=== PATIENT | female | born 1965 | race Caucasian/White ===

== ENCOUNTER 2020-06-14 13:33 | Inpatient (IN) | payer OTHER ==
--- NOTE | 2020-06-14 14:14 | RAD REPORT ---
EXAM DESCRIPTION: CT - Ct Stroke Brain Wo Cont - 06/14/2020 2:02 pm CLINICAL HISTORY: Confusion/alteration of awareness COMPARISON: 2017 TECHNIQUE: Computed axial tomography of the head was obtained. All CT scans are performed using dose optimization technique as appropriate and may include automated exposure control or mA/KV adjustment according to patient size. FINDINGS: An intracranial bleed is not seen . The ventricles are normal in caliber. No extra-axial fluid collection is noted. Low-density areas within the frontal lobes having the appearance of old infarctions. Mild to moderate low-density within periventricular, deep and subcortical white matter likely ischemic changes second shruthi to small vessel disease Fluid within the sinuses/ mastoids is not seen. IMPRESSION: No acute intracranial abnormality is seen. If patient's symptoms persist MRI of the bra in would be recommended. Radha of the emergency room was notified at 2:09 p.m. June 14, 2020
[2020-06-14 14:35] LABS: ALT/SGPT 17 U/L (12-78); Albumin 2.9 g/dL (3.4-5.0); Alkaline Phosphatase 70 U/L (45-117); Bilirubin Direct < 0.1 mg/dL (0-0.2); Bilirubin Total 0.3 mg/dL (0.2-1.0); NT PRO-BNP 102 pg/mL (<125); Protein, Total 7.2 g/dL (6.4-8.2); Troponin (Emerg Dept Use Only) < 0.02 ng/mL (0.0-0.045)
[2020-06-14 14:36] LABS: AST/SGOT 21 U/L (15-37); Magnesium 1.9 mg/dL (1.8-2.4)
[2020-06-14] MEDS ORDERED: NA CHLORIDE 0.9% 1,000 ML ONE ×2 (15:11→15:17)
--- NOTE | 2020-06-14 15:14 | EDPHYS ---
Physician Documentation [facility] Name: Grace Guzman Age: 55 yrs Sex: Female : 1965 Arrival Date: 06/14/2020 Time: 13:41 Bed 28 Private MD: ED Physician Micheal Ward HPI: 06/14 15:00 This 55 yrs old Female presents to ER via Ambulatory with complaints of S/S gabriella of Possible Stroke. 15:00 The patient's problem is reported as weakness, that is generalized. Onset: The gabriella symptoms/episode began/occurred this morning, 1 day(s) ago. Duration: The episode is continuous. Context: pt dry mm, weakness, non focal, no evidence , diagnosis most consistent with dehydration. The symptoms are alleviated by nothing. The symptoms are aggravated by nothing. Associated signs and symptoms: The patient has no apparent associated signs or symptoms. Severity of symptoms: At their worst the symptoms were moderate in the emergency department the symptoms are unchanged. Patient's baseline: Neuro:. The patient has experienced similar episodes in the past, several times. Historical: - Allergies: 14:00 Aspirin; vc 14:00 PENICILLINS; vc - PMHx: 14:00 Anemia; Anxiety; Aphasia; CAD; Contracture; CVA; epilepsy; Hypertension; ibs; MR; vc Schizophrenia; vitamin d deficiency; - Immunization history:: Adult Immunizations up to date. - Family history:: not pertinent. - Social history:: Smoking status: Patient denies any tobacco usage or history of. ROS: 15:00 Constitutional: Negative for fever, chills, and weight loss, Eyes: Negative for injury, gabriella pain, redness, and discharge, Neck: Negative for injury, pain, and swelling, Cardiovascular: Negative for chest pain, palpitations, and edema, Respiratory: Negative for shortness of breath, cough, wheezing, and pleuritic chest pain, Back: Negative for injury and pain, : Negative for injury, bleeding, discharge, and swelling, MS/Extremity: Negative for injury and deformity, Neuro: Negative for headache, weakness, numbness, tingling, and seizure, Psych: Negative for depression, anxiety, suicide ideation, homicidal ideation, and hallucinations, Allergy/Immunology: Negative for hives, rash, and allergies, Endocrine: Negative for neck swelling, polydipsia, polyuria, polyphagia, and marked weight changes, Hematologic/Lymphatic: Negative for swollen nodes, abnormal bleeding, and unusual bruising. 15:00 ENT: Positive for dry mm, tongue dry. Exam: 15:00 Neuro: Awake and alert, GCS 15, oriented to person, place, time, and situation. [facility] Cranial nerves II-XII grossly intact. Motor strength 5/5 in all extremities. Sensory grossly intact. Cerebellar exam normal. Normal gait. 15:00 Eyes: Pupils equal round and reactive to light, extra-ocular motions intact. Lids and lashes normal. Conjunctiva and sclera are non-icteric and not injected. Cornea within normal limits. Periorbital areas with no swelling, redness, or edema. 15:00 Eyes: Periorbital structures: appear normal, Pupils: no acute changes, Extraocular movements: no acute changes, Conjunctiva: normal. 15:00 ENT: Mouth: Oral mucosa: dry, Gums: reddened, Tongue: is elevated, displays fissures, Posterior pharynx: no acute changes, Airway: normal, no evidence of obstruction, Dental exam: dental caries, missing teeth. 15:00 Cardiovascular: Rate: normal, Rhythm: regular, Pulses: no pulse deficits are appreciated, Heart sounds: normal, Edema: is not appreciated, JVD: is not appreciated. 15:09 Radiologist reports: [facility] Vital Signs: 13:35 BP 114 / 65; Pulse 74; Resp 11; Temp 97.8; Pulse Ox 94% on R/A; Height 5 ft. 7 in. (170.18 cm); 16:00 BP 110 / 64; Pulse 72; Resp 11; Pulse Ox 97% on R/A; vc 17:00 BP 105 / 61; Pulse 67; Resp 10; Pulse Ox 97% on R/A; vc 18:00 BP 116 / 69; Pulse 66; Resp 14; Pulse Ox 96% on R/A; vc 19:00 BP 124 / 71; Pulse 74; Resp 14; Pulse Ox 97% on R/A; vc 21:00 BP 125 / 67; Pulse 86; Resp 17; Temp 97.9(O); Pulse Ox 99% on R/A; vc NIH Stroke Scale Scores: 14:00 NIHSS Score: 14 vc Procedures: 15:10 Peripheral line: by aseptic technique a peripheral line was placed in the right [facility] external jugular vein. MDM: 13:42 Patient medically screened. [facility] 15:06 Data reviewed: vital signs, nurses notes, lab test result(s), EKG, radiologic studies, gabriella CT scan, plain films. Data interpreted: hall monitor: rate is 74 beats/min, rhythm is regular, Pulse oximetry: on room air is 94 %. Test interpretation: by ED physician or midlevel provider: ECG, plain radiologic studies. Counseling: I had a detailed discussion with the patient and/or guardian regarding: the historical points, exam findings, and any diagnostic results supporting the discharge/admit diagnosis, the presence of at least one elevated blood pressure reading (>120/80) during this emergency department visit, lab results, radiology results, the need for further work-up and treatment in the hospital. 15:10 Differential diagnosis: CVA, TIA, Dementia, paralysis, Alzheimer disease, metabolic gabriella disorder. 06/14 13:54 Order name: Basic Metabolic Panel; Complete Time: 16:55 [facility] 06/14 13:54 Order name: CBC with Diff; Complete Time: 16:55 [facility] 06/14 13:54 Order name: Protime (+inr); Complete Time: 16:55 [facility] 06/14 13:54 Order name: Ptt, Activated; Complete Time: 16:55 [facility] 06/14 13:56 Order name: LFT's; Complete Time: 15:08 [facility] 06/14 13:56 Order name: Magnesium; Complete Time: 15:08 [facility] 06/14 13:56 Order name: NT PRO-BNP; Complete Time: 15:08 [facility] 06/14 13:56 Order name: Troponin (emerg Dept Use Only); Complete Time: 15:08 [facility] 06/14 13:56 Order name: Blood Culture Adult (2) [facility] 06/14 13:56 Order name: Urine Culture [facility] 06/14 15:08 Order name: Depakote [facility] 06/14 15:53 Order name: Urine Dipstick--Ancillary (enter results) em1 06/14 17:41 Order name: Basic Metabolic Panel [facility] 06/14 17:41 Order name: Basic Metabolic Panel [facility] 06/14 13:54 Order name: CT Stroke Brain w/o Contrast; Complete Time: 15:08 [facility] 06/14 13:54 Order name: Stroke CXR 1 View; Complete Time: 16:55 aa06/14 13:54 Order name: EKG; Complete Time: 13:55 06/14 13:54 Order name: Accucheck; Complete Time: 15:54 06/14 13:54 Order name: Cardiac monitoring; Complete Time: 15:54 06/14 13:54 Order name: EKG - Nurse/Tech; Complete Time: 15:54 06/14 13:54 Order name: IV Saline Lock; Complete Time: 15:54 06/14 13:54 Order name: Labs collected and sent; Complete Time: 15:54 06/14 13:54 Order name: NPO; Complete Time: 15:54 06/14 13:54 Order name: O2 Per Protocol; Complete Time: 15:54 06/14 13:54 Order name: O2 Sat Monitoring; Complete Time: 15:55 06/14 17:41 Order name: CBC with Automated Diff EDMS 06/14 17:41 Order name: CBC with Automated Diff EDMS 06/14 13:54 Order name: Stroke Swallow Screen; Complete Time: 20:15 06/14 13:56 Order name: Urine Dipstick-Ancillary (obtain specimen); Complete Time: 15:52 gabriella 06/14 15:00 Order name: Mosquera; Complete Time: 15:53 [facility] Administered Medications: 15:04 Drug: NS 0.9% 1000 ml Route: IV; Rate: 1 bolus; Site: left jugular; ss 16:05 Follow up: IV Status: Completed infusion; IV Intake: 1000ml vc 15:25 Drug: Rocephin 1 grams Route: IV; Rate: per protocol; Site: Other; vc 16:00 Follow up: IV Intake: 10ml vc 15:50 Drug: foLIC Acid 1 mg Route: IVPB; Site: right jugular; vc 16:15 Follow up: IV Status: Completed infusion; IV Intake: 50ml vc Disposition: 06/14/20 15:13 Hospitalization ordered by Derian Yan for Inpatient Admission. Preliminary diagnosis are Weakness, Dehydration, Schizophrenia, Urinary tract infection, site not specified. - Bed requested for Telemetry/MedSurg (Inpatient). - Status is Inpatient Admission. ll1 - Condition is Fair. - Problem is new. - Symptoms have improved. NIH Stroke Scale - NIH Stroke Score Date: 06/14/2020 Time: 14:00 Total Score = 14 1a. Level of Consciousness (LOC) - 1(Not Alert) 1b. Level of Consciousness (LOC) (Year \T\ Age) - 2(Neither) 1c. LOC Commands (Open \T\ Closes Eyes/Talent Coordinator) - 0(Both) 2. Best Gaze (Lateral Gaze Paresis) - 0(Normal) 3. Visual Field Loss - 0(No visual loss) 4. Facial Palsy - 0(Normal) 5a. Left Arm: Motor (10-second hold) - 1(Drift) 5b. Right Arm: Motor (10-second hold) - 1(Drift) 6a. Left Leg: Motor (5-second hold - always test supine) - 4(No movement) 6b. Right Leg: Motor (5-second hold - always test supine) - 4(No movement) 7. Limb Ataxia (finger/nose \T\ heel/solorzano - test with eyes open) - 0(Absent) 8. Sensory Loss (pinprick arms/legs/face) - 0(Normal) 9. Best Language: Aphasia (description/naming/reading) - 0(No aphasia) 10. Dysarthria (speech clarity - read or repeat words) - 0(Normal) 11. Extinction and Inattention (visual/tactile/auditory/spatial/personal) - 1(Present) Initials: vc Signatures: Dispatcher [employer] EDMS Micheal Ward MD MD cha Calderon, Audri, RN RN aa5 Kamla Liao RN RN ss Gely Joseph RN RN Ariella Caro RN RN vc Lewis, Lynsay, RN RN ll1 Corrections: (The following items were deleted from the chart) 17:21 15:13 Hospitalization Ordered by Derian Yan DO for Inpatient Admission. [facility] Preliminary diagnosis is Weakness; Dehydration; Schizophrenia. Bed requested for Telemetry/MedSurg (Inpatient). Status is Inpatient Admission. Condition is Fair. Problem is new. Symptoms have improved. [facility] 20:47 17:21 06/14/2020 15:13 Hospitalization Ordered by Derian Yan DO for Inpatient Admission. Preliminary diagnosis is Weakness; Dehydration; Schizophrenia; Urinary tract infection, site not specified. Bed requested for Telemetry/MedSurg (Inpatient). Status is Inpatient Admission. Condition is Fair. Problem is new. Symptoms have improved. [facility] 22:30 20:47 06/14/2020 15:13 Hospitalization Ordered by Derian Yan DO for ll1 Inpatient Admission. Preliminary diagnosis is Weakness; Dehydration; Schizophrenia; Urinary tract infection, site not specified. Bed requested for Telemetry/MedSurg (Inpatient). Status is Inpatient Admission. Condition is Fair. Problem is new. Symptoms have improved.
--- NOTE | 2020-06-14 15:14 | ER ---
Nurse's Notes [facility] Name: Grace Guzman Age: 55 yrs Sex: Female : 1965 Arrival Date: 06/14/2020 Time: 13:41 Bed 28 Private MD: Diagnosis: Weakness;Dehydration;Schizophrenia;Urinary tract infection, site not specified Presentation: 06/14 13:35 Chief complaint: EMS states: right pupil sluggish, pt c/o headache behind right eye for ah 20 mins. BS 90. last known well time was 10am today. A/O to self only but usually A/O x3. Coronavirus screen: Proceed with normal triage. Ebola Screen: No symptoms or risks identified at this time. The patients blood glucose was checked before arriving to the hospital and was found to be normal. Initial Sepsis Screen: Does the patient meet any 2 criteria? No. Patient's initial sepsis screen is negative. Does the patient have a suspected source of infection? No. Patient's initial sepsis screen is negative. Risk Assessment: Do you want to hurt yourself or someone else? Patient reports no desire to harm self or others. Onset of symptoms is unknown. 13:35 Method Of Arrival: Ambulatory ah 13:35 Acuity: RODDY 3 ah 14:00 No acute neurological deficit is noted. vc Triage Assessment: 14:00 The onset of the patients symptoms was at an unknown time. General: Appears vc uncomfortable, ill, slender, unkempt, emaciated, malnourished. Historical: - Allergies: 14:00 Aspirin; vc 14:00 PENICILLINS; vc - PMHx: 14:00 Anemia; Anxiety; Aphasia; CAD; Contracture; CVA; epilepsy; Hypertension; ibs; MR; vc Schizophrenia; vitamin d deficiency; - Immunization history:: Adult Immunizations up to date. - Family history:: not pertinent. - Social history:: Smoking status: Patient denies any tobacco usage or history of. Screenin:00 Abuse screen: Denies threats or abuse. Nutritional screening: Intervention for positive vc screen:. Tuberculosis screening: No symptoms or risk factors identified. Fall Risk No fall in past 12 months (0 pts). Secondary diagnosis (15 points) impaired mobility, IV access (20 points). Ambulatory Aid- None/Bed Rest/Nurse Assist (0 pts). Gait- Total De La Cruz Fall Scale indicates High Risk Score (45 or more points). Fall prevention measures have been instituted. Side Rails Up X 2 Placed Close to Nursing Station Frequent Obs/Assessments Occuring. Assessment: 14:00 VAN Scoring: Arm Drift: Minor drift Visual Disturbance: No visual disturbance noted. vc Aphasia: No aphasia noted. Neglect: No neglect noted. Patient has been NPO before screening. The patient is alert, and able to follow commands. The patient does not exhibit slurred or garbled speech. The patient is not exhibiting difficulty speaking. The patient is exhibiting difficulty understanding words. The patient is able to swallow own secretions with no drooling or need for suction. Patient tolerated one teaspoon of water. No drooling, immediate coughing, gurgling, or clearing of the throat was noted. The patient tolerated 90mL of water. No drooling, immediate coughing, gurgling, or clearing of the throat was noted. The patient passed the bedside swallow screening. Oral medications may be given as ordered. Contact Physician for further diet orders. Provider notified of bedside swallow screening results: Micheal Ward MD. T-PA (Activase) Screening: Indications: Treatment will start within 4.5 hours onset of symptoms: No. No evidence of intracranial hemorrhage or CT of head and no evidence of peripheral hemorrhage or recent CVA: Yes. General: Appears in no apparent distress. uncomfortable, Behavior is calm, cooperative, appropriate for age. Pain: Complains of pain in right hip Pain does not radiate. Unable to use pain scale. Does not appear to understand pain scale. Patient appears to be crying, to be grimacing. Neuro: Level of Consciousness is obeys commands, lethargic, listless, Oriented to person. Cardiovascular: Capillary refill < 3 seconds Patient's skin is warm and dry. Respiratory: Airway is patent Respiratory effort is even, unlabored, Respiratory pattern is regular, symmetrical. Derm: Skin is dry, Patient has bruising to right thigh, both arms, redness to right hip, both eye lids are caked with crust, and lips are dry and cracked. 15:00 Reassessment: Patient appears in no apparent distress at this time. Patient and/or vc family updated on plan of care and expected duration. Pain level reassessed. 16:00 Reassessment: Patient appears in no apparent distress at this time. Patient and/or vc family updated on plan of care and expected duration. Pain level reassessed. 17:00 Reassessment: Patient appears in no apparent distress at this time. Patient and/or vc family updated on plan of care and expected duration. Pain level reassessed. 18:00 Reassessment: Patient appears in no apparent distress at this time. Patient and/or vc family updated on plan of care and expected duration. Pain level reassessed. 19:00 Reassessment: Patient appears in no apparent distress at this time. No changes from vc previously documented assessment. Patient and/or family updated on plan of care and expected duration. Pain level reassessed. Patient states symptoms have not improved. 20:00 Reassessment: Patient appears in no apparent distress at this time. Patient and/or vc family updated on plan of care and expected duration. Pain level reassessed. Patient asked for water and was able to give her name. 21:00 Reassessment: Patient appears in no apparent distress at this time. Patient and/or vc family updated on plan of care and expected duration. Pain level reassessed. Patient states symptoms have improved. 22:00 Reassessment: Patient appears in no apparent distress at this time. Patient and/or vc family updated on plan of care and expected duration. Pain level reassessed. Patient states feeling better. Patient states symptoms have improved. Vital Signs: 13:35 BP 114 / 65; Pulse 74; Resp 11; Temp 97.8; Pulse Ox 94% on R/A; Height 5 ft. 7 in. (170.18 cm); 16:00 BP 110 / 64; Pulse 72; Resp 11; Pulse Ox 97% on R/A; vc 17:00 BP 105 / 61; Pulse 67; Resp 10; Pulse Ox 97% on R/A; vc 18:00 BP 116 / 69; Pulse 66; Resp 14; Pulse Ox 96% on R/A; vc 19:00 BP 124 / 71; Pulse 74; Resp 14; Pulse Ox 97% on R/A; vc 21:00 BP 125 / 67; Pulse 86; Resp 17; Temp 97.9(O); Pulse Ox 99% on R/A; vc NIH Stroke Scale Scores: 14:00 NIHSS Score: 14 ED Course: 13:41 Patient arrived in ED. 13:42 Micheal Ward MD is Attending Physician. gabriella 13:44 Triage completed. ah 13:58 Ariella Caro, RN is Primary Nurse. vc 14:00 Arm band placed on. vc 14:00 Patient has correct armband on for positive identification. Bed in low position. Call vc light in reach. Pulse ox on. NIBP on. 14:03 CT Stroke Brain w/o Contrast In Process Unspecified. EDMS 14:27 EKG done, by technical laboratory asst. reviewed by Michela Ward MD. at1 14:38 Stroke CXR 1 View In Process Unspecified. EDMS 15:12 Derian Yan DO is Hospitalizing Provider. gabriella 15:28 Mosquera cath inserted, using sterile technique, 18 Fr., by ED staff, balloon inflated, to vc gravity drainage, clamped. urine specimen collected. other Inserted by ADELFO Ricardo. 18:54 Inserted saline lock: 18 gauge in right antecubital area, using aseptic technique. rv Blood collected. 21:24 No provider procedures requiring assistance completed. Patient admitted, IV remains in vc place. Administered Medications: 15:04 Drug: NS 0.9% 1000 ml Route: IV; Rate: 1 bolus; Site: left jugular; ss 16:05 Follow up: IV Status: Completed infusion; IV Intake: 1000ml vc 15:25 Drug: Rocephin 1 grams Route: IV; Rate: per protocol; Site: Other; vc 16:00 Follow up: IV Intake: 10ml vc 15:50 Drug: foLIC Acid 1 mg Route: IVPB; Site: right jugular; vc 16:15 Follow up: IV Status: Completed infusion; IV Intake: 50ml vc Intake: 16:00 IV: 10ml; Total: 10ml. vc 16:05 IV: 1000ml; Total: 1010ml. vc 16:15 IV: 50ml; Total: 1060ml. vc Outcome: 15:13 Decision to Hospitalize by Provider. gabriella 22:30 Patient left the ED. ll1 22:30 Admitted to Med/surg accompanied by tech, via wheelchair. vc 22:30 Condition: good 22:30 Instructed on the need for admit. vc NIH Stroke Scale - NIH Stroke Score Date: 06/14/2020 Time: 14:00 Total Score = 14 1a. Level of Consciousness (LOC) - 1(Not Alert) 1b. Level of Consciousness (LOC) (Year \T\ Age) - 2(Neither) 1c. LOC Commands (Open \T\ Closes Eyes/Paperhanger Supervisor) - 0(Both) 2. Best Gaze (Lateral Gaze Paresis) - 0(Normal) 3. Visual Field Loss - 0(No visual loss) 4. Facial Palsy - 0(Normal) 5a. Left Arm: Motor (10-second hold) - 1(Drift) 5b. Right Arm: Motor (10-second hold) - 1(Drift) 6a. Left Leg: Motor (5-second hold - always test supine) - 4(No movement) 6b. Right Leg: Motor (5-second hold - always test supine) - 4(No movement) 7. Limb Ataxia (finger/nose \T\ heel/solorzano - test with eyes open) - 0(Absent) 8. Sensory Loss (pinprick arms/legs/face) - 0(Normal) 9. Best Language: Aphasia (description/naming/reading) - 0(No aphasia) 10. Dysarthria (speech clarity - read or repeat words) - 0(Normal) 11. Extinction and Inattention (visual/tactile/auditory/spatial/personal) - 1(Present) Initials: vc Signatures: Dispatcher [employer] EDMicheal Chowdhury MD MD cha Smirch, Shelby, RN RN Sherley Garcia, learning support specialist EKG Tat1 Sergo Dumas, RN Ariella Callejas RN RN vc Harris, Amy, RN RN ah Lewis, Lynsay, RN RN ll1
[2020-06-14] MEDS ORDERED: CEFTRIAXONE/SWI 1gm 1 GM/10 ML SYR ONE (15:17)
[2020-06-14] MEDS ORDERED: NA CHLORIDE 0.9% 50 ML IV ONE (15:17)
[2020-06-14] MEDS ORDERED: FOLIC ACID 5 MG/ML VIAL ONE (15:17)
--- NOTE | 2020-06-14 15:34 | RAD REPORT ---
EXAM DESCRIPTION: Carlos Single View06/14/2020 2:37 pm CLINICAL HISTORY: Code stroke/alteration of consciousness COMPARISON: 2017 FINDINGS: The lungs appear clear of acute infiltrate. The heart is mildly enlarged IMPRESSION: No acute abnormalities displayed
[2020-06-14 16:16] LABS: BUN Blood Urea Nitrogen 14 mg/dL (7-18); Bicarbonate 27 mmol/L (21-32); Glucose Level 89 mg/dL (74-106); Potassium 3.9 mmol/L (3.5-5.1); Sodium Level 144 mmol/L (136-145)
[2020-06-14 16:26] LABS: Absolute Lymphocytes (CBC) 2.7 K/uL (0.7-4.9); Basophils % 0.2 % (0-1.3); Hematocrit 42.4 % (36.0-45.0); Lymphocytes % 39.1 % (15.3-44.8); RBC Red Blood Cell Count 4.32 M/uL (3.86-4.86)
[2020-06-14 16:40] LABS: Protime INR 0.97
--- OUTSIDE RECORDS SUMMARY | 2020-06-14 17:16 | XMS REPORT | Clinical Summary ---
:1965 Author Organization [facility] Address [address] [place] [address] Care Team Providers Name Role Phone Julia Primary Care Provider Allergies Active Allergy Reactions Severity Noted Date Comments Aspirin Nausea And Vomiting 09/16/2017 Penicillins Rash Low 09/16/2017 Medications Medication Sig Dispensed Refills Start Date End Date Status baclofen (LIORESAL) 20 MG Take 20 mg by 0 Active tabletIndications: muscle mouth 3 (three) spasms caused by a spinal times daily. disease acetaminophen (TYLENOL) Take 650 mg by 0 Active 325 MG tabletIndications: mouth 3 (three) pain times daily. benztropine (COGENTIN) Take 0.5 mg by 0 Active 0.5 MG tabletIndications: mouth 2 (two) extrapyramidal disease, a times daily. type of movement disorder divalproex (DEPAKOTE) 250 Take 500 mg by 0 Active MG EC tabletIndications: mouth 3 (three) epilepsy times daily. docusate sodium (COLACE) Take 100 mg by 0 Active 100 MG capsule mouth 2 (two) times daily. gabapentin (NEURONTIN) Take 800 mg by 0 Active 800 MG tabletIndications: mouth 2 (two) essential tremor times daily. levETIRAcetam (KEPPRA) Take 750 mg by 0 Active 750 MG tabletIndications: mouth 2 (two) additional medication to times daily. treat partial seizures clopidogrel (PLAVIX) 75 Take 75 mg by 0 Active mg tabletIndications: mouth daily. prevention for a blood clot going to the brain atorvastatin (LIPITOR) 40 Take 40 mg by 0 Active MG tabletIndications: mouth daily. stroke prevention cholecalciferol (VITAMIN Take 1,000 0 Active D3) 1,000 unit Units by mouth tabletIndications: low daily. vitamin D levels Active Problems Problem Noted Date Functional quadriplegia 10/01/2017 Moderate protein-calorie malnutrition 10/01/2017 Nonintractable generalized idiopathic epilepsy without status epilepticus 09/16/2017 Leukocytosis 09/16/2017 Encephalopathy acute 09/15/2017 Social History Tobacco Use Types Packs/Day Years Used Date Never Assessed Sex Assigned at Date Recorded Not on file Job Start Date Occupation Industry Not on file Not on file Not on file Travel History Travel Start Travel End No recent travel history available. Last Filed Vital Signs Not on file Plan of Treatment Not on file Results Not on fileafter 06/14/2019 Insurance Payer Benefit Plan / Group Subscriber ID Type Phone A ddress MEDICARE MEDICARE A B xxxxxxxxxx Medicare MEDICAID MEDICAID [facility] xxxxxxxxx Medicaid Advance Directives For more information, please contact:[address] [phone] Code Status Date Activated Date Inactivated Comments Full Code 09/15/2017 11:20 PM 09/18/2017 7:49 PM This code status was determined by: Patient
--- OUTSIDE RECORDS SUMMARY | 2020-06-14 17:17 | XMS REPORT | Continuity of Care Document ---
:1965 Author Organization [facility] t Address 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 0-31 Catina kes - ia ia 00:00: Medical 00 [place] Moderate Moderate Disease Active [facility] protein[facility] protein-ca 0-31 Catina kes - tristin tristin 00:00: Medical malnutriti malnutriti 00 Ce nter on on Nonintract Nonintract Disease Active 2016-[address] able able 0-16 [facility] generalize generalize 00:00: Me dical d d 00 [place] idiopathic idiopathic epilepsy epilepsy without without status status epilepticu epilepticu s s Leukocytos Leukocytos Disease Active 2016-[address] is is 0-16 [facility] - 00:[facility]: Medical 00 [place] Encephalop Encephalop Disease Active 2016-[address] athy acute athy acute 0-15 Catina kes - 00:00: Medical 00 [place] Allergies, Adverse Reactions, Alerts Allergy Allergy Status Severity Reaction(s) Onset Inactive Treating Comm ents Source Name Type Date Date Clinician Aspirin Propensi Active Nausea And 2016-[address] [facility] [address] ty to Vomiting 0-16 [facility] - adverse 00:00: Medical reaction 00 [place] s Penicill Propensi Active Rash 2016-[address] [facility] ins ty to 0-16 [facility] - adverse 00:00: Medical reaction 00 [place] s Social History Social Habit Start Date Stop Date Quantity Comments Source Sex Assigned At [facility] Medications Ordered Filled Start Stop Current Ordering Indication Dosage Frequency Signature Comments Components Source Medication Medication Date Date Medication? Clinician (SIG) Name Name levETIRAcet 2016-12 Yes additional 750mg Q.5D Take [address] [facility] am (KEPPRA) 0-16 medication mg by L ukes - 750 MG 03:55: to treat mouth 2 Medi david tablet 34 partial (two) Center seizures times daily. clopidogrel 2016-12 Yes prevention 75mg QD Take [address] [facility] (PLAVIX) 75 0-16 for a blood by mouth [facility] - mg tablet 03:55: clot going daily. Medical 34 to the Center brain atorvastati 2016-12 Yes stroke 40mg QD Take [address] [facility] n (LIPITOR) 0-16 prevention by mouth [facility] - 40 MG 03:55: daily. Medical tablet 34 [place] cholecalcif 2016-12 Yes low vitamin 1000U QD Take 1,[address] [facility] manuel 0-16 D levels Units by [facility] - (VITAMIN 03:55: mouth Medical D3) 1,000 34 daily. Center unit tablet baclofen 2016-12 Yes muscle 20mg Q.[id number] Take [address] [facility] (LIORESAL) 0-16 spasms [id number] by mouth 3 [facility] - 20 MG 03:55: caused by a 3D (three) Me dical tablet 33 spinal times Center disease daily. acetaminoph 2016-12 Yes pain 650mg Q.76266392 Take [address] en 0-16 [id number] mg by [facility] - (TYLENOL) 03:55: 3D mouth 3 Medic al 325 MG 33 (three) Center tablet times daily. benztropine 2016-12 Yes extrapyrami .5mg Q.5D Take 0.[address] [facility] (COGENTIN) 0-16 huy mg by [facility] - 0.5 MG 03:55: disease, a mouth 2 Me dical tablet 33 type of (two) Center movement times disorder daily. divalproex 2016-12 Yes epilepsy 500mg Q.[id number] Take [address] [facility] [address] (DEPAKOTE) 0-16 [id number] mg by Catina kes - 250 MG EC 03:55: 3D mouth 3 Medic al tablet 33 (three) Center times daily. docusate 2016-12 Yes 100mg Q.5D Take [address] [facility] [address] sodium 0-16 mg by [facility] - (COLACE) 03:55: mouth 2 Medica l 100 MG 33 (two) Center capsule times daily. gabapentin 2016-12 Yes essential 800mg Q.5D Take [address] [facility] [address] (NEURONTIN) 0-16 tremor mg by [facility] - 800 MG 03:55: mouth 2 Medical tablet 33 (two) Center times daily. Procedures This patient has no known procedures. Results Test Description Test Time Test Comments Results Result Comments Source BLOOD CULTURE 2017-09-21 11:01:00 Test Item Value Reference Range Interpretation Comme nts CULTURE (BEAKER) (test code = 1095) No growth in 5 days BLOOD [id number] 11:01:00 Test Item Value Reference Range Interpretation Comments CULTURE (BEAKER) (test No growth in 5 days code = 1095) URINE [id number] 11:15:00 Test Item Value Reference Range Interpretation Comments CULTURE (BEAKER) (test code = 1095) No growth [id number] 08:30:00 Test Item Value Reference Range Interpretation Comments AMMONIA (BEAKER) (test code = 348) 69 mol/L 18-72 CBC W/PLT COUNT & AUTO [id number] 07:44:00 Test Item Value Reference Range Interpretation Comments WHITE BLOOD CELL COUNT 9.9 K/ L 3.5-10.5 (BEAKER) (test code = 775) RED BLOOD CELL COUNT 3.49 M/ L 3.93-5.22 L (BEAKER) (test code = 761) HEMOGLOBIN (BEAKER) 11.5 GM/DL 11.2-15.7 (test code = 410) HEMATOCRIT (BEAKER) 35.7 % 34.1-44.9 (test code = 411) MEAN CORPUSCULAR 102.3 fL 79.4-94.8 H Discordant result VOLUME (BEAKER) (test compar ed to previous code = 753) result; clinica l correlation required. MEAN CORPUSCULAR 33.0 pg 25.6-32.2 H HEMOGLOBIN (BEAKER) (test code = 751) MEAN CORPUSCULAR 32.2 GM/DL 32.2-35.5 HEMOGLOBIN CONC (BEAKER) (test code = 752) RED CELL DISTRIBUTION 13.5 % 11.7-14.4 WIDTH (BEAKER) (test code = 412) PLATELET COUNT 180 K/CU MM 150-450 (BEAKER) (test code = 756) MEAN PLATELET VOLUME 10.6 fL 9.4-12.3 (BEAKER) (test code = 754) NUCLEATED RED BLOOD 0 /100 WBC 0-0 CELLS (BEAKER) (test code = 413) NEUTROPHILS RELATIVE 67 % PERCENT (BEAKER) (test code = 429) LYMPHOCYTES RELATIVE 24 % PERCENT (BEAKER) (test code = 430) MONOCYTES RELATIVE 7 % PERCENT (BEAKER) (test code = 431) EOSINOPHILS RELATIVE 2 % PERCENT (BEAKER) (test code = 432) BASOPHILS RELATIVE 0 % PERCENT (BEAKER) (test code = 437) NEUTROPHILS ABSOLUTE 6.58 K/ L 1.56-6.13 H COUNT (BEAKER) (test code = 670) LYMPHOCYTES ABSOLUTE 2.36 K/ L 1.18-3.74 COUNT (BEAKER) (test code = 414) MONOCYTES ABSOLUTE 0.71 K/ L 0.24-0.36 H COUNT (BEAKER) (test code = 415) EOSINOPHILS ABSOLUTE 0.18 K/ L 0.04-0.36 COUNT (BEAKER) (test code = 416) BASOPHILS ABSOLUTE 0.03 K/ L 0.01-0.08 COUNT (BEAKER) (test code = 417) IMMATURE 0 % 0-1 GRANULOCYTES-RELATIVE PERCENT (BEAKER) (test code = 2801) [id number] 07:09:00 Test Item Value Reference Range Interpretation Comments MAGNESIUM (BEAKER) (test code = 1.7 mg/dL 1.6-2.6 627) BASIC METABOLIC [id number] 07:09:00 Test Item Value Reference Range Interpretation Comments SODIUM (BEAKER) 142 meq/L 136-145 (test code = 381) POTASSIUM (BEAKER) 3.3 meq/L 3.5-5.1 L (test code = 379) CHLORIDE (BEAKER) 108 meq/L 98-107 H (test code = 382) CO2 (BEAKER) (test 27 meq/L 22-29 code = 355) BLOOD UREA NITROGEN 5 mg/dL 7-21 L (BEAKER) (test code = 354) CREATININE (BEAKER) 0.55 mg/dL 0.57-1.25 L (test code = 358) GLUCOSE RANDOM 92 mg/dL 70-105 (BEAKER) (test code = 652) CALCIUM (BEAKER) 8.3 mg/dL 8.4-10.2 L (test code = 697) EGFR (BEAKER) (test 116 mL/min/1.73 ESTIM ATED GFR IS code = 1092) sq m NOT ACCURATE CREATININE CLEARANCE IN PREDICTING GLOMERULAR FILTRATION RATE . ESTIMATED GFR I S NOT APPLICABLE FOR DIALYSIS PATIEN TS. VALPROIC ACID LEVEL, [id number] 18:11:00 Test Item Value Reference Range Interpretation Comments VALPROIC ACID TOTAL (BEAKER) (test 94 ug/mL 50-100 code = 924) Therapeutic range for some clinical conditions may be >100 ug/mLMAGNESIUM 2017-09-17 07:11:00 Test Item Value Reference Range Interpretation Comments MAGNESIUM (BEAKER) 1.6 mg/dL 1.6-2.6 Specimen slightly (test code = 627) hemolyzed BASIC METABOLIC [id number] 07:11:00 Test Item Value Reference Range Interpretation Comments SODIUM (BEAKER) 141 meq/L 136-145 (test code = 381) POTASSIUM (BEAKER) 4.1 meq/L 3.5-5.1 Specimen slightly (test code = 379) hemolyzed CHLORIDE (BEAKER) 113 meq/L 98-107 H (test code = 382) CO2 (BEAKER) (test 20 meq/L 22-29 L code = 355) BLOOD UREA NITROGEN 5 mg/dL 7-21 L (BEAKER) (test code = 354) CREATININE (BEAKER) 0.58 mg/dL 0.57-1.25 Specimen slightly (test code = 358) hemolyzed GLUCOSE RANDOM 85 mg/dL 70-105 (BEAKER) (test code = 652) CALCIUM (BEAKER) 8.5 mg/dL 8.4-10.2 (test code = 697) EGFR (BEAKER) (test 109 mL/min/1.73 ESTIM ATED GFR IS code = 1092) sq m NOT ACCURATE CREATININE CLEARANCE IN PREDICTING GLOMERULAR FILTRATION RATE . ESTIMATED GFR I S NOT APPLICABLE FOR DIALYSIS PATIEN TS. LACTIC ACID, VENOUS, WHOLE [id number] 07:03:00 Test Item Value Reference Range Interpretation Comments LACTATE BLOOD VENOUS 1.1 mmol/L 0.5-2.2 Specime n moderately (2) (BEAKER) (test hemolyzed code = 0772) Effective 04/04/2016: Units/Reference Range ChangeNew: 0.5-2.2 mmol/L Previous: 5-20 mg/dLCBC W/PLT COUNT & AUTO [id number] 06:58:00 Test Item Value Reference Range Interpretation Comments WHITE BLOOD CELL COUNT (BEAKER) 11.6 K/ L 3.5-10.5 H (test code = 775) RED BLOOD CELL COUNT (BEAKER) 4.02 M/ L 3.93-5.22 (test code = 761) HEMOGLOBIN (BEAKER) (test code = 13.2 GM/DL 11.2-15.7 410) HEMATOCRIT (BEAKER) (test code = 44.8 % 34.1-44.9 411) MEAN CORPUSCULAR VOLUME (BEAKER) 111.4 fL 79.4-94.8 H (test code = 753) MEAN CORPUSCULAR HEMOGLOBIN 32.8 pg 25.6-32.2 H (BEAKER) (test code = 751) MEAN CORPUSCULAR HEMOGLOBIN CONC 29.5 GM/DL 32.2-35.5 L (BEAKER) (test code = 752) RED CELL DISTRIBUTION WIDTH 13.8 % 11.7-14.4 (BEAKER) (test code = 412) PLATELET COUNT (BEAKER) (test 128 K/CU MM 150-450 L code = 756) MEAN PLATELET VOLUME (BEAKER) 10.7 fL 9.4-12.3 (test code = 754) NUCLEATED RED BLOOD CELLS 0 /100 WBC 0-0 (BEAKER) (test code = 413) NEUTROPHILS RELATIVE PERCENT 73 % (BEAKER) (test code = 429) LYMPHOCYTES RELATIVE PERCENT 18 % (BEAKER) (test code = 430) MONOCYTES RELATIVE PERCENT 9 % (BEAKER) (test code = 431) EOSINOPHILS RELATIVE PERCENT 1 % (BEAKER) (test code = 432) BASOPHILS RELATIVE PERCENT 0 % (BEAKER) (test code = 437) NEUTROPHILS ABSOLUTE COUNT 8.42 K/ L 1.56-6.13 H (BEAKER) (test code = 670) LYMPHOCYTES ABSOLUTE COUNT 2.05 K/ L 1.18-3.74 (BEAKER) (test code = 414) MONOCYTES ABSOLUTE COUNT (BEAKER) 0.99 K/ L 0.24-0.36 H (test code = 415) EOSINOPHILS ABSOLUTE COUNT 0.07 K/ L 0.04-0.36 (BEAKER) (test code = 416) BASOPHILS ABSOLUTE COUNT (BEAKER) 0.04 K/ L 0.01-0.08 (test code = 417) IMMATURE GRANULOCYTES-RELATIVE 0 % 0-1 PERCENT (BEAKER) (test code = 2801) EEG AWAKE AND [id number] 15:16:00Reason for exam:->abnormal movements, AMSDATE OF TEST: 09/16/2017 DATE OF REPORT 09/16/2017 ACC: [id number] Start time: 10:52 Stoptime: 11:13 ICD-10: R41.82 CPT Code: 83544 HISTORY: 52 year old woman with prior stroke, schizophrenia, possible seizure disorder who was found minimally responsive and with abnormal movements MEDICATIONS: Keppra, Cogentin, Depakote, Neurontin, Risperdal TECHNICAL SUMMARY: This is a digital video EEG recorded with 32 input channels reviewed with bipolar and referential montages using the modified combinatorial system nomenclature. DESCRIPTION OF RECORD: DESCRIPTION OF RECORD: This technically limited EEG study is predominated by large amounts of paroxysmal myogenic artifacts related to the patient's inability to fully cooperate. During the maximally alert state an 8-9 Hz posterior dominant rhythm was seen that was symmetric, reactive to eye opening and well regulated. More anteriorly, low voltage frontocentral beta predominated. Drowsiness was characterized by alpha attenuation and increased frontocentral theta. HV: Hyperventilation was not performed. PHOTIC STIMULATION: Flash stimulation was not done. IMPRESSION: Normal awake and drowsy EEG, technically limited study CLINICAL CORRELATION: Large amounts of myogenic artifact as in this case can be known to obscure subtle EEG abnormality, such as focal spikes, slowing, or attenuation. An EEG without epileptiform discharges doesnot exclude the possibility of epilepsy. If the clinical suspicion of epilepsy remains, consider additional EEG recordings. Parisa Muller MD Neurophysiology Fellow Tai Jackson M.D.,[facility] Professor of Neurology Director, [facility] Head, [facility] ophysiology Lab CBC W/PLT COUNT & AUTO [id number] 12:02:00 Test Item Value Reference Range Interpretation Comments WHITE BLOOD CELL COUNT (BEAKER) 10.8 K/ L 3.5-10.5 H (test code = 775) RED BLOOD CELL COUNT (BEAKER) 3.87 M/ L 3.93-5.22 L (test code = 761) HEMOGLOBIN (BEAKER) (test code = 13.0 GM/DL 11.2-15.7 410) HEMATOCRIT (BEAKER) (test code = 40.6 % 34.1-44.9 411) MEAN CORPUSCULAR VOLUME (BEAKER) 104.9 fL 79.4-94.8 H (test code = 753) MEAN CORPUSCULAR HEMOGLOBIN 33.6 pg 25.6-32.2 H (BEAKER) (test code = 751) MEAN CORPUSCULAR HEMOGLOBIN CONC 32.0 GM/DL 32.2-35.5 L (BEAKER) (test code = 752) RED CELL DISTRIBUTION WIDTH 14.3 % 11.7-14.4 (BEAKER) (test code = 412) PLATELET COUNT (BEAKER) (test 197 K/CU MM 150-450 code = 756) MEAN PLATELET VOLUME (BEAKER) 10.7 fL 9.4-12.3 (test code = 754) NUCLEATED RED BLOOD CELLS 0 /100 WBC 0-0 (BEAKER) (test code = 413) NEUTROPHILS RELATIVE PERCENT 70 % (BEAKER) (test code = 429) LYMPHOCYTES RELATIVE PERCENT 20 % (BEAKER) (test code = 430) MONOCYTES RELATIVE PERCENT 10 % (BEAKER) (test code = 431) EOSINOPHILS RELATIVE PERCENT 0 % (BEAKER) (test code = 432) BASOPHILS RELATIVE PERCENT 0 % (BEAKER) (test code = 437) NEUTROPHILS ABSOLUTE COUNT 7.52 K/ L 1.56-6.13 H (BEAKER) (test code = 670) LYMPHOCYTES ABSOLUTE COUNT 2.17 K/ L 1.18-3.74 (BEAKER) (test code = 414) MONOCYTES ABSOLUTE COUNT (BEAKER) 1.07 K/ L 0.24-0.36 H (test code = 415) EOSINOPHILS ABSOLUTE COUNT 0.00 K/ L 0.04-0.36 L (BEAKER) (test code = 416) BASOPHILS ABSOLUTE COUNT (BEAKER) 0.01 K/ L 0.01-0.08 (test code = 417) IMMATURE GRANULOCYTES-RELATIVE 0 % 0-1 PERCENT (BEAKER) (test code = 2801) (MANUAL DIFFERENTIAL)2017-09-16 12:02:00 Test Item Value Reference Range Interpretation Comments TOTAL COUNTED (BEAKER) (test code = 1351) WBC MORPHOLOGY (BEAKER) (test code = Normal 487) PLT MORPHOLOGY (BEAKER) (test code = Normal 486) RBC MORPHOLOGY (BEAKER) (test code = Normal 762) URINALYSIS W/ [id number] 11:57:00 Test Item Value Reference Range Interpretation Comments COLOR (BEAKER) (test code Light Yellow = 470) CLARITY (BEAKER) (test Clear code = 469) SPECIFIC GRAVITY UA 1.005 1.001-1.035 (BEAKER) (test code = 468) PH UA (BEAKER) (test code 6.5 5.0-8.0 = 467) PROTEIN UA (BEAKER) (test Negative Negative code = 464) GLUCOSE UA (BEAKER) (test Negative Negative code = 365) KETONES UA (BEAKER) (test Negative Negative code = 371) BILIRUBIN UA (BEAKER) Negative Negative (test code = 462) BLOOD UA (BEAKER) (test Negative Negative code = 461) NITRITE UA (BEAKER) (test Negative Negative code = 465) LEUKOCYTE ESTERASE UA Trace Negative A (BEAKER) (test code = 466) UROBILINOGEN UA (BEAKER) 0.2 mg/dL 0.2-1.0 (test code = 463) RBC UA (BEAKER) (test < /HPF code = 519) WBC UA (BEAKER) (test 3 /HPF code = 520) SOURCE(BEAKER) (test code Urine, Straight = 2795) Catheter RAD, CHEST, 1 VIEW, NON [id number] 10:55:00Reason for exam:- >pneumoniaShould this be performed at the bedside?->YesFINAL REPORT Chest one view. Clinical history: pneumonia Comparison: No priors Discussion: A frontal chest is provided. Cardiomediastinal contours are unremarkable. No discrete consolidation is identified. There is no xochilt pulmonary edema, pneumothorax, or significant pleural effusion. Minimal left basilar atelectasis. Osseous structures demonstrate degenerative change and dec reased mineralization. No acute abnormality is seen. Signed: Marah Chi MDReport Verified Date/Time: 09/16/2017 10:55:21 Reading Location: [facility] Radiology Reading Room BASIC METABOLIC [id number] 06:30:00 Test Item Value Reference Range Interpretation Comments SODIUM (BEAKER) 142 meq/L 136-145 (test code = 381) POTASSIUM (BEAKER) 4.4 meq/L 3.5-5.1 Specimen slightly (test code = 379) hemolyzed CHLORIDE (BEAKER) 111 meq/L 98-107 H (test code = 382) CO2 (BEAKER) (test 22 meq/L 22-29 code = 355) BLOOD UREA NITROGEN 12 mg/dL 7-21 (BEAKER) (test code = 354) CREATININE (BEAKER) 0.60 mg/dL 0.57-1.25 Specimen slightly (test code = 358) hemolyzed GLUCOSE RANDOM 82 mg/dL 70-105 (BEAKER) (test code = 652) CALCIUM (BEAKER) 8.8 mg/dL 8.4-10.2 (test code = 697) EGFR (BEAKER) (test 105 mL/min/1.73 ESTIM ATED GFR IS code = 1092) sq m NOT ACCURATE CREATININE CLEARANCE IN PREDICTING GLOMERULAR FILTRATION RATE . ESTIMATED GFR I S NOT APPLICABLE FOR DIALYSIS PATIEN TS.
[2020-06-14] MEDS ORDERED: ONDANSETRON 4 MG/2 ML VIAL IV PRN (17:36)
--- NOTE | 2020-06-14 17:46 | P.HP ---
Certification for Inpatient Patient admitted to: Observation With expected LOS: <2 Midnights Patient will require the following post-hospital care: None Practitioner: I am a practitioner with admitting privileges, knowledge of patient current condition, hospital course, and medical plan of care. Services: Services provided to patient in accordance with Admission requirements found in Title 42 Section 412.3 of the Code of Federal Regulations <Rosas Rojas - Last Filed: 06/14/20 18:09> Patient admitted to: Observation <Derian Yan - Last Filed: 06/14/20 19:04> Patient History Date of Service: 06/14/20 Reason for admission: Altered mental status/dehydration/UTI History of Present Illness: 55-year-old female with past medical history of schizophrenia that is a [facility] resident presents to the emergency room via EMS with complaints of altered mental status and dehydration. Patient was evaluated by [facility] staff and noted to not be herself. Was alert only to self and normally patient is alert and oriented x3. EMS was called and patient was brought to the emergency room. In emergency room patient is weak, nonfocal and alert oriented to self. She is started on IV fluids. Lab work is fairly unremarkable. UA shows a UTI with positive leukocyte esterase. CT of the head shows frontal lobe old infarcts. Patient also has a history of schizophrenic at and is currently on valproic acid. Valproic acid level is slightly elevated at 105. Chest x-ray shows no acute abnormalities. On examination patient is nonfocal, in no distress soft-spoken but only oriented to self. Malnourished. She appears dehydrated. Patient will be admitted Overnite for observation. Home medications list reviewed: No - Past Medical/Surgical History Diabetic: No -: Schizophrenia - Family History Family History: Reviewed- Non-Contributory - Social History Smoking Status: Never smoker Alcohol use: No CD- Drugs: No Caffeine use: No Place of Residence: [place] <Rosas Rojas - Last Filed: 06/14/20 18:09> Date of Service: 06/14/20 - Past Medical/Surgical History Past Surgical History: Unable to obtain Psychosocial/ Personal History: Patient from [facility] <Derian Yan - Last Filed: 06/14/20 19:04> Allergies aspirin Allergy (Unverified 03/13/17 02:34) Unknown Penicillins Allergy (Unverified 03/13/17 02:34) Unknown Review of Systems General: Unremarkable Eyes: Unremarkable ENT: Unremarkable Respiratory: Unremarkable Cardiovascular: Unremarkable Gastrointestinal: Unremarkable Genitourinary: Unremarkable Musculoskeletal: Unremarkable Integumentary: Unremarkable <Rosas Rojas - Last Filed: 06/14/20 18:09> Physical Examination - Vital Signs Temperature: 97.8 F Blood Pressure: 114/65 Pulse: 74 Respirations: 11 Pulse Ox (%): 94 (r/a) - Physical Exam General: Alert, Oriented x1, Cooperative, Other (Mod Malnourished) HEENT: Atraumatic, Normocephalic, PERRLA Neck: Supple, Other (Trachea midline) Respiratory: Clear to auscultation bilaterally, Normal air movement Cardiovascular: Normal pulses, Regular rate/rhythm Capillary refill: <2 Seconds Gastrointestinal: Normal bowel sounds, Soft and benign, Non-distended Musculoskeletal: No clubbing, No swelling, No contractures Integumentary: No rashes, No breakdown, No significant lesion Neurological: Normal tone, Sensation intact Other Physical/Emotional Findings: snf - Studies Laboratory Data (last 24 hrs) 06/14/20 15:35: WBC 6.9, Hgb 14.1, Hct 42.4, Plt Count 205 06/14/20 13:44: Magnesium 1.9, Total Bilirubin 0.3, AST 21, ALT 17, Alkaline Phosphatase 70 06/14/20 13:44: PT 11.4, INR 0.97, APTT 25.3 06/14/20 13:44: Sodium 144, Potassium 3.9, BUN 14, Creatinine 0.48 L, Glucose 89 <Rosas Rojas - Last Filed: 06/14/20 18:09> - Studies Laboratory Data (last 24 hrs) 06/14/20 15:35: WBC 6.9, Hgb 14.1, Hct 42.4, Plt Count 205 06/14/20 13:44: Magnesium 1.9, Total Bilirubin 0.3, AST 21, ALT 17, Alkaline Phosphatase 70 06/14/20 13:44: PT 11.4, INR 0.97, APTT 25.3 06/14/20 13:44: Sodium 144, Potassium 3.9, BUN 14, Creatinine 0.48 L, Glucose 89 <Derian Yan - Last Filed: 06/14/20 19:04> Assessment and Plan - Plan Impression: Altered mental status likely secondary to finding of urinary tract infection: Dehydration with moderate malnourishment: Malnourished but with weakness muscle loss of body fat loss: History of CVA: History of schizophrenia: Plan: Altered mental status likely secondary to finding of urinary tract infection: The etiology of the altered mental status is likely a combination of dehydration and findings of positive leukocyte esterase on UA. Patient be started on IV fluids, IV ceftriaxone 1 g Q daily and telemetry. Will monitor daily labs and fluid status. Will resume [facility] diet once verified. Dehydration with moderate malnourishment: Continue IV fluids. Monitor fluid status. Will resume [facility] diet. Patient has a history of multiple admissions for similar symptoms of dehydration. Malnourished but with weakness muscle loss of body fat loss: History of malnourishment. Patient is a [facility] resident with history of old CVAs per CT of the brain. History of CVA: MRI confirming old frontal lobe infarcts. No evidence of new CVA. Will resume home medications once verified. History of schizophrenia: Patient on valproic acid. Current level of 105. Slightly elevated. Will resume home medications once verified. Discharge Plan: [place] Plan to discharge in: 48 Hours - Advance Directives Does patient have a Living Will: No Does patient have a Durable POA for Healthcare: No - Code Status/Comfort Care Code Status Assessed: Yes <Rosas Rojas - Last Filed: 06/14/20 18:09> - Plan Case discussed at length with PA. Continue with plan of care. Agree with evaluation, assessment. Case reviewed. Patient likely with UTI. Will start IV antibiotic therapy. Continue IV fluids. Anticipate improvement over the next 1 day. Possible discharge as early as tomorrow. Time Spent Managing Pts Care (In Minutes): 55 <Derian Yan - Last Filed: 06/14/20 19:04>
[2020-06-14] MEDS: ENOXAPARIN 40 MG/0.4 ML SQ SCH ×2 (18:00→22:44)
[2020-06-14] MEDS: NA CHLORIDE 0.9% 1,000 ML IV SCH ×2 (18:00→22:44)
[2020-06-14 20:31] LABS: Urine Blood 1+ (NEG); Urine Glucose NEGATIVE (NEG); Urine Protein NEGATIVE (NEG); Urine Specific Gravity >1.030 (1.005-1.030); Urine pH 5.5 (5.0-7.0)
[2020-06-14 22:38] VITALS: BMI 19.2
[2020-06-15] MEDS: NA CHLORIDE 0.9% 1,000 ML IV SCH ×4 (01:15→20:18)
[2020-06-15] MEDS: ACETAMINOPHEN 500 MG TAB PO PRN ×2 (01:18→20:07)
[2020-06-15 05:45] LABS: Absolute Lymphocytes (CBC) 2.9 K/uL (0.7-4.9); Basophils % 0.3 % (0-1.3); Hematocrit 36.6 % (36.0-45.0); Lymphocytes % 36.2 % (15.3-44.8); MPV 9.1 fL (7.6-11.3)
[2020-06-15 05:48] LABS: BUN Blood Urea Nitrogen 12 mg/dL (7-18); Bicarbonate 27 mmol/L (21-32); Glucose Level 80 mg/dL (74-106); Magnesium 1.8 mg/dL (1.8-2.4); Potassium 3.5 mmol/L (3.5-5.1); Sodium Level 143 mmol/L (136-145)
--- NOTE | 2020-06-15 07:46 | EKG ---
Test Date: 2020-06-14 Test Time: 14:17:56 Iron Cutter: SAKSHI MEASUREMENT RESULTS: Intervals: Rate: 72 AL: 162 QRSD: 86 QT: 400 QTc: 438 [place]: P: 70 AL: 162 QRS: 65 T: 54 INTERPRETIVE STATEMENTS: Normal sinus rhythm Normal ECG Compared to ECG 09/15/2017 14:27:32 Sinus tachycardia no longer present Myocardial infarct finding no longer present ST (T wave) deviation no longer present Possible ischemia no longer present Electronically Signed On 06-15-20 07:44:35 CDT by Hua Marion
[2020-06-15] MEDS ORDERED: POTASSIUM CL SA 10 MEQ TAB PO ONE (09:00)
[2020-06-15] MEDS: ENOXAPARIN 40 MG/0.4 ML SQ SCH (09:40)
[2020-06-15] MEDS: CEFTRIAXONE/SWI 1gm 1 GM/10 ML SYR IVP SCH (09:40)
[2020-06-15] MEDS: BUSPIRONE HCL 5 MG TABLET PO SCH ×2 (09:40→20:07)
[2020-06-15] MEDS: LORATADINE 10 MG TAB PO SCH (09:41)
[2020-06-15] MEDS: VITAMIN D 1000 UNIT TAB PO SCH (09:41)
[2020-06-15] MEDS: DIVALPROEX ER 250 MG TAB PO SCH ×2 (09:41→20:08)
[2020-06-15] MEDS: levETIRAcetam 500 MG TAB PO SCH ×2 (09:41→20:08)
[2020-06-15] MEDS: RISPERIDONE 1 MG TABLET PO SCH ×2 (09:41→20:08)
[2020-06-15] MEDS: GABAPENTIN 400 MG CAP PO SCH ×2 (09:41→20:08)
[2020-06-15] MEDS: BACLOFEN 10 MG TAB PO SCH ×3 (09:42→20:08)
[2020-06-15] MEDS: DOCUSATE NA 100 MG CAP PO SCH ×2 (09:42→20:08)
[2020-06-15] MEDS: CLOPIDOGREL 75 MG TABLET PO SCH (09:42)
[2020-06-15] MEDS: FLUTICASONE 50MCG NASAL SPRAY NAS SCH ×2 (09:42→20:09)
[2020-06-15] MEDS: POLYVINYL ALCOHOL 1.4% 15 ML OPTH SCH ×4 (09:43→20:11)
--- NOTE | 2020-06-15 11:01 | P.PN ---
Subjective Date of Service: 06/15/20 Chief Complaint: Altered mental status/dehydration/UTI Subjective: Improving, Doing well <Rosas Rojas - Last Filed: 06/15/20 11:01> Date of Service: 06/15/20 <OmarjonnyDerian - Last Filed: 06/15/20 14:52> Review of Systems General: Unremarkable Eyes: Unremarkable ENT: Unremarkable Respiratory: Unremarkable Cardiovascular: Unremarkable Gastrointestinal: Unremarkable Genitourinary: Dysuria Musculoskeletal: Unremarkable Neurological: Unremarkable <Rosas Rojas - Last Filed: 06/15/20 11:01> Physical Examination - Vital Signs Temperature: 97.5 F Blood Pressure: 118/65 Pulse: 87 Respirations: 16 Pulse Ox (%): 93 - Physical Exam General: Alert, In no apparent distress, Oriented x3 HEENT: Atraumatic, Normocephalic, PERRLA Neck: Supple, Other (Trachea midline) Respiratory: Clear to auscultation bilaterally, Normal air movement Cardiovascular: Normal pulses, Regular rate/rhythm, Normal S1 S2 Capillary refill: <2 Seconds Gastrointestinal: Normal bowel sounds, Soft and benign, Non-distended Musculoskeletal: No swelling, No erythema, No tenderness Integumentary: No rashes, No breakdown, No significant lesion Neurological: Normal strength at 5/5 x4 extr, Normal tone Urinary: Mosquera catheter Other Physical/Emotional Findings: [facility] - Studies Laboratory Data (last 24 hrs) 06/15/20 04:52: Sodium 143, Potassium 3.5, BUN 12, Creatinine 0.42 L, Glucose 80, Magnesium 1.8 06/15/20 04:52: WBC 7.9 D, Hgb 12.2, Hct 36.6, Plt Count 211 06/14/20 15:35: WBC 6.9, Hgb 14.1, Hct 42.4, Plt Count 205 06/14/20 13:44: Magnesium 1.9, Total Bilirubin 0.3, AST 21, ALT 17, Alkaline Phosphatase 70 06/14/20 13:44: PT 11.4, INR 0.97, APTT 25.3 06/14/20 13:44: Sodium 144, Potassium 3.9, BUN 14, Creatinine 0.48 L, Glucose 89 Microbiology Data (last 24 hrs): 06/14/20 22:58 Nasopharnyx Coronavirus COVID-19 PCR - Final <Rosas Rojas - Last Filed: 06/15/20 11:01> - Studies Laboratory Data (last 24 hrs) 06/15/20 04:52: Sodium 143, Potassium 3.5, BUN 12, Creatinine 0.42 L, Glucose 80, Magnesium 1.8 06/15/20 04:52: WBC 7.9 D, Hgb 12.2, Hct 36.6, Plt Count 211 06/14/20 15:35: WBC 6.9, Hgb 14.1, Hct 42.4, Plt Count 205 06/14/20 13:44: PT 11.4, INR 0.97, APTT 25.3 06/14/20 13:44: Sodium 144, Potassium 3.9, BUN 14, Creatinine 0.48 L, Glucose 89 Microbiology Data (last 24 hrs): 06/14/20 22:58 Nasopharnyx Coronavirus COVID-19 PCR - Final <Derian Yan - Last Filed: 06/15/20 14:52> Assessment And Plan - Plan Impression: Altered mental status likely secondary to finding of urinary tract infection: Dehydration with moderate malnourishment: Malnourished but with weakness muscle loss of body fat loss: History of CVA: History of schizophrenia: Plan: Altered mental status likely secondary to finding of urinary tract infection: Much improved this morning. Altered mental status resolved. Patient is alert and oriented x 3. Patient is at baseline. UA is positive for leukocyte esterase and nitrites. Urine culture pending. Patient is responding well to IV antibiotics. Continue IV fluids, IV ceftriaxone 1 g Q daily and telemetry. Will monitor daily labs and fluid status. Patient is tolerating a regular diet. Patient can return back to retirement but has Covid screening pending. Will monitor urine culture in the mean time and adjust antibiotics accordingly. Patient did have a prior urine culture from June 05, 2017 that showed growth of E coli susceptible to current antibiotic. Dehydration with moderate malnourishment: Mostly resolved. Will continue with gentle IV fluids and monitor volume status. Continue regular diet. Tolerating p.o. diet. Patient has a history of multiple admissions for similar symptoms of dehydration. Malnourished but with weakness muscle loss of body fat loss: History of malnourishment. Patient is tolerating current p.o. regular diet. She is at her baseline alert and oriented x3. She is pleasant and cooperative. Counseled about p.o. intake. Patient is a retirement resident with history of old CVAs per CT of the brain. History of CVA: CT head confirming old frontal lobe infarcts. No evidence of new CVA. Will resume home medications once verified. History of schizophrenia: Pleasant, cooperative and at her baseline. Patient on valproic acid. Current level of 105. Slightly elevated. Will resume home medications once verified. Discharge Plan: [facility] Plan to discharge in: 48 Hours - Code Status/Comfort Care Code Status Assessed: Yes (Full code) Time Spent Managing PTS Care (In Minutes): 45 <Rosas Rojas - Last Filed: 06/15/20 11:01> - Plan Agree with physician assistant analyst. Case discussed at length. Agree with evaluation, assessment and plan of care. Also examined patient. Await urine culture results. Will transition back to the retirement once cultures have finalize. This includes COVID testing. <Derian Yan - Last Filed: 06/15/20 14:52>
[2020-06-15] MEDS: ATORVASTATIN 40 MG TAB PO SCH (20:08)
[2020-06-15] MEDS: MELATONIN 5 MG TABLET PO SCH (20:08)
[2020-06-16] MEDS: NA CHLORIDE 0.9% 1,000 ML IV SCH ×2 (05:02→10:48)
[2020-06-16 06:41] LABS: BUN Blood Urea Nitrogen 11 mg/dL (7-18); Bicarbonate 28 mmol/L (21-32); Glucose Level 94 mg/dL (74-106); Magnesium 1.9 mg/dL (1.8-2.4); Potassium 3.8 mmol/L (3.5-5.1); Sodium Level 143 mmol/L (136-145)
[2020-06-16] MEDS: DIVALPROEX ER 250 MG TAB PO SCH ×2 (08:15→20:56)
[2020-06-16] MEDS: CLOPIDOGREL 75 MG TABLET PO SCH (08:16)
[2020-06-16] MEDS: GABAPENTIN 400 MG CAP PO SCH ×2 (08:16→20:58)
[2020-06-16] MEDS: BUSPIRONE HCL 5 MG TABLET PO SCH ×2 (08:16→20:55)
[2020-06-16] MEDS: RISPERIDONE 1 MG TABLET PO SCH ×2 (08:16→20:57)
[2020-06-16] MEDS: LORATADINE 10 MG TAB PO SCH (08:16)
[2020-06-16] MEDS: DOCUSATE NA 100 MG CAP PO SCH ×2 (08:16→20:56)
[2020-06-16] MEDS: BACLOFEN 10 MG TAB PO SCH ×3 (08:16→20:56)
[2020-06-16] MEDS: levETIRAcetam 500 MG TAB PO SCH ×2 (08:16→20:56)
[2020-06-16] MEDS: ENOXAPARIN 40 MG/0.4 ML SQ SCH (08:16)
[2020-06-16] MEDS: ACETAMINOPHEN 500 MG TAB PO PRN ×2 (08:16→20:58)
[2020-06-16] MEDS: VITAMIN D 1000 UNIT TAB PO SCH (08:17)
[2020-06-16] MEDS: POLYVINYL ALCOHOL 1.4% 15 ML OPTH SCH ×4 (08:17→21:01)
[2020-06-16] MEDS: FLUTICASONE 50MCG NASAL SPRAY NAS SCH ×2 (08:17→21:01)
[2020-06-16] MEDS: CEFTRIAXONE/SWI 1gm 1 GM/10 ML SYR IVP SCH (08:17)
[2020-06-16] MEDS ORDERED: POTASSIUM CL SA 10 MEQ TAB PO ONE (09:00)
--- NOTE | 2020-06-16 15:58 | P.PN ---
Subjective Date of Service: 06/16/20 Chief Complaint: Altered mental status/dehydration/UTI Subjective: Improving, Doing well Physical Examination - Vital Signs Temperature: 96.7 F Blood Pressure: 93/52 Pulse: 86 Respirations: 18 Pulse Ox (%): 96 - Physical Exam General: Alert HEENT: Atraumatic Neck: Supple Respiratory: Clear to auscultation bilaterally, Normal air movement Cardiovascular: Normal pulses, Regular rate/rhythm Musculoskeletal: Contractures (Left arm and hand) Neurological: Normal speech Other Physical/Emotional Findings: [facility] - Studies Microbiology Data (last 24 hrs): 06/14/20 15:36 Catheterized Urine [place] Count - Final >100,000 CFU/ML. 06/14/20 15:36 Catheterized Urine - Final Escherichia Fergusoni 06/14/20 14:36 Blood - Blood Aerobic Blood Culture - Final 06/14/20 14:36 Blood - Blood Blood Culture Gram Stain - Final 06/14/20 14:36 Blood - Blood Anaerobic Blood Culture - Final 06/14/20 14:36 Blood - Blood Gram Stain - Final 06/14/20 22:58 Nasopharnyx Coronavirus COVID-19 PCR - Final Medications List Reviewed: Yes Assessment & Plan Discharge Plan: [facility] Plan to discharge in: 24 Hours Physician Review Additional Text: Impression: Toxic encephalopathy related to UTI, urine culture positive for E. Victorinaosi Dehydration with moderate malnourishment Malnourished but with weakness muscle loss of body fat loss History of CVA with left hand contracture History of schizophrenia Plan: Toxic encephalopathy related to UTI, urine culture positive for E. Victorinaosi: Patient doing well this time. Will transition from IV antibiotic therapy to Bactrim. Patient will need a course of 7 days. Anticipate discharge back to the senior living but patient will have to have results on COVID prior to discharge. Anticipate improvement tomorrow. I will turn the service over to the hospitalist team tomorrow. I will go plan of care with him. Dehydration with moderate malnourishment: Patient tolerating diet. Will discontinue IV fluids. Malnourished but with weakness muscle loss of body fat loss: continue diet History of CVA with left hand contracture: Patient doing well this time. Continue current medication. Will recommend at the senior living that they cut her nails-hands and feet to prevent skin irritation and infection. Also recommend rolled towel to the left hand. History of schizophrenia: Continue current medication Time Spent Managing Pts Care (In Minutes): 55
[2020-06-16] MEDS: SMZ./TMP. 800/160 MG TABLET PO SCH (20:55)
[2020-06-16] MEDS: MELATONIN 5 MG TABLET PO SCH (20:56)
[2020-06-16] MEDS: ATORVASTATIN 40 MG TAB PO SCH (20:56)
[2020-06-17] MEDS: ACETAMINOPHEN 500 MG TAB PO PRN ×4 (03:08→20:32)
[2020-06-17 06:03] LABS: BUN Blood Urea Nitrogen 10 mg/dL (7-18); Bicarbonate 29 mmol/L (21-32); Glucose Level 88 mg/dL (74-106); Sodium Level 144 mmol/L (136-145)
[2020-06-17] MEDS ORDERED: AZTREONAM 1 GM/VIAL IV SCH (08:00)
[2020-06-17] MEDS: GABAPENTIN 400 MG CAP PO SCH ×2 (08:38→20:34)
[2020-06-17] MEDS: RISPERIDONE 1 MG TABLET PO SCH ×2 (08:38→20:34)
[2020-06-17] MEDS: levETIRAcetam 500 MG TAB PO SCH ×2 (08:38→20:33)
[2020-06-17] MEDS: DIVALPROEX ER 250 MG TAB PO SCH ×2 (08:38→20:34)
[2020-06-17] MEDS: LORATADINE 10 MG TAB PO SCH (08:38)
[2020-06-17] MEDS: BACLOFEN 10 MG TAB PO SCH ×3 (08:38→20:34)
[2020-06-17] MEDS: BUSPIRONE HCL 5 MG TABLET PO SCH ×2 (08:38→20:34)
[2020-06-17] MEDS: DOCUSATE NA 100 MG CAP PO SCH ×2 (08:38→20:35)
[2020-06-17] MEDS: SMZ./TMP. 800/160 MG TABLET PO SCH (08:38)
[2020-06-17] MEDS: ENOXAPARIN 40 MG/0.4 ML SQ SCH (08:39)
[2020-06-17] MEDS: FLUTICASONE 50MCG NASAL SPRAY NAS SCH ×2 (08:39→20:35)
[2020-06-17] MEDS: VITAMIN D 1000 UNIT TAB PO SCH (08:39)
[2020-06-17] MEDS: CLOPIDOGREL 75 MG TABLET PO SCH (08:39)
[2020-06-17] MEDS: POLYVINYL ALCOHOL 1.4% 15 ML OPTH SCH ×4 (08:40→20:35)
--- NOTE | 2020-06-17 09:44 | P.PN ---
Subjective Date of Service: 06/17/20 Chief Complaint: Altered mental status/dehydration/UTI Subjective: No new changes, Doing well <Rosas Rojas - Last Filed: 06/17/20 10:31> Date of Service: 06/17/20 <TawandaJohnnie Dane - Last Filed: 06/17/20 14:01> Review of Systems General: Unremarkable Eyes: Unremarkable ENT: Unremarkable Respiratory: Unremarkable Cardiovascular: Unremarkable Gastrointestinal: Unremarkable Genitourinary: Unremarkable Musculoskeletal: Hand Pain (Needs nails clipped on left-hand, wants rolled up towel to hold on left hand) Integumentary: Unremarkable Neurological: Unremarkable <Rosas Rojas - Last Filed: 06/17/20 10:31> Physical Examination - Vital Signs Temperature: 98.7 F Blood Pressure: 93/50 Pulse: 94 Respirations: 18 Pulse Ox (%): 97 - Physical Exam General: Alert, In no apparent distress, Oriented x3 HEENT: Atraumatic, Normocephalic, PERRLA Neck: Supple Respiratory: Clear to auscultation bilaterally, Normal air movement Cardiovascular: No edema, Normal pulses, Regular rate/rhythm Capillary refill: <2 Seconds Gastrointestinal: Normal bowel sounds, Soft and benign, Non-distended Musculoskeletal: No swelling, Contractures (Left hand, rolled up towel in place to avoid nails irritating left hand ) Integumentary: No rashes, No breakdown, No significant lesion Neurological: Normal speech, Normal strength at 5/5 x4 extr, Normal tone Other Physical/Emotional Findings: [facility] - Studies Microbiology Data (last 24 hrs): 06/14/20 15:36 Catheterized Urine [place] Count - Final >100,000 CFU/ML. 06/14/20 15:36 Catheterized Urine - Final Escherichia Fergusoni 06/14/20 14:36 Blood - Blood Aerobic Blood Culture - Final 06/14/20 14:36 Blood - Blood Blood Culture Gram Stain - Final 06/14/20 14:36 Blood - Blood Anaerobic Blood Culture - Final 06/14/20 14:36 Blood - Blood Gram Stain - Final Medications List Reviewed: Yes <Rosas Rojas - Last Filed: 06/17/20 10:31> - Studies Microbiology Data (last 24 hrs): 06/14/20 14:36 Blood - Blood Aerobic Blood Culture - Final 06/14/20 14:36 Blood - Blood Blood Culture Gram Stain - Final 06/14/20 14:36 Blood - Blood Anaerobic Blood Culture - Final 06/14/20 14:36 Blood - Blood Gram Stain - Final 06/14/20 15:36 Catheterized Urine [place] Count - Final >100,000 CFU/ML. 06/14/20 15:36 Catheterized Urine - Final Escherichia Fergusoni <NeffJohnnie - Last Filed: 06/17/20 14:01> Assessment And Plan - Plan Impression: Toxic encephalopathy related to UTI, urine culture positive for E. Fergunosi Bacteremia Dehydration with moderate malnourishment Malnourished but with weakness muscle loss of body fat loss History of CVA with left hand contracture History of schizophrenia Plan: Toxic encephalopathy related to UTI, urine culture positive for E. Fergunosi: Patient doing well. Due to positive blood cultures. Patient will be started on Rocephin to cover both UTI and gram-positive findings on blood culture. Patient will need a course of 10 days at discharge. Anticipate discharge back to the [facility] but patient will have to have results on COVID prior to discharge and negative blood cultures. Bacteremia: Patient with 1 of 2 positive blood cultures growing gram-positive cocci in clusters. Will repeat blood cultures. Continue antibiotic coverage for now. Patient is doing well and does not appear septic at this time. Vitals were stable. Dehydration with moderate malnourishment: Patient tolerating diet. Malnourished but with weakness muscle loss of body fat loss: continue diet History of CVA with left hand contracture: Patient doing well this time. Continue current medication. Will recommend at the [facility] that they cut her nails-on the left hand and feet to prevent skin irritation and infection. Also recommend rolled towel to the left hand. History of schizophrenia: Continue current medication [facility]charge Plan: [facility] Plan to discharge in: 48 Hours - Code Status/Comfort Care Code Status Assessed: Yes Physician Review Additional Text: Impression: Toxic encephalopathy related to UTI, urine culture positive for E. Fergunosi Dehydration with moderate malnourishment Malnourished but with weakness muscle loss of body fat loss History of CVA with left hand contracture History of schizophrenia Plan: Toxic encephalopathy related to UTI, urine culture positive for E. Fergunosi: Patient doing well this time. Will transition from IV antibiotic therapy to Bactrim. Patient will need a course of 7 days. Anticipate discharge back to the [facility] but patient will have to have results on COVID prior to discharge. Anticipate improvement tomorrow. I will turn the service over to the hospitalist team tomorrow. I will go plan of care with him. Dehydration with moderate malnourishment: Patient tolerating diet. Will discontinue IV fluids. Malnourished but with weakness muscle loss of body fat loss: continue diet History of CVA with left hand contracture: Patient doing well this time. Continue current medication. Will recommend at the [facility] that they cut her nails-hands and feet to prevent skin irritation and infection. Also recommend rolled towel to the left hand. History of schizophrenia: Continue current medication Time Spent Managing PTS Care (In Minutes): 45 <Rosas Rojas - Last Filed: 06/17/20 10:31> Physician Review Additional Text: The patient was seen and examined Agree with the findings and plan of care as documented by the [facility] <Johnnie Neff - Last Filed: 06/17/20 14:01>
[2020-06-17] MEDS: CEFTRIAXONE/SWI 1gm 1 GM/10 ML SYR IVP SCH (11:42)
[2020-06-17] MEDS: MELATONIN 5 MG TABLET PO SCH (20:34)
[2020-06-17] MEDS: ATORVASTATIN 40 MG TAB PO SCH (20:34)
[2020-06-18] MEDS: VITAMIN D 1000 UNIT TAB PO SCH (09:00)
[2020-06-18] MEDS: CEFTRIAXONE/SWI 1gm 1 GM/10 ML SYR IVP SCH (09:42)
[2020-06-18] MEDS: ENOXAPARIN 40 MG/0.4 ML SQ SCH (09:42)
[2020-06-18] MEDS: BACLOFEN 10 MG TAB PO SCH ×3 (09:43→20:56)
[2020-06-18] MEDS: DIVALPROEX ER 250 MG TAB PO SCH ×2 (09:43→20:57)
[2020-06-18] MEDS: DOCUSATE NA 100 MG CAP PO SCH ×2 (09:44→20:58)
[2020-06-18] MEDS: levETIRAcetam 500 MG TAB PO SCH ×2 (09:44→20:57)
[2020-06-18] MEDS: BUSPIRONE HCL 5 MG TABLET PO SCH ×2 (09:44→20:57)
[2020-06-18] MEDS: CLOPIDOGREL 75 MG TABLET PO SCH (09:44)
[2020-06-18] MEDS: LORATADINE 10 MG TAB PO SCH (09:44)
[2020-06-18] MEDS: RISPERIDONE 1 MG TABLET PO SCH ×2 (09:45→20:57)
[2020-06-18] MEDS: ACETAMINOPHEN 500 MG TAB PO PRN ×2 (09:46→20:58)
[2020-06-18] MEDS: POLYVINYL ALCOHOL 1.4% 15 ML OPTH SCH ×4 (09:46→20:59)
[2020-06-18] MEDS: FLUTICASONE 50MCG NASAL SPRAY NAS SCH ×2 (09:47→20:58)
[2020-06-18] MEDS: GABAPENTIN 400 MG CAP PO SCH ×2 (09:49→20:58)
--- NOTE | 2020-06-18 10:13 | P.PN ---
Subjective Date of Service: 06/18/20 Chief Complaint: Altered mental status/dehydration/UTI Subjective: No new changes, Tolerating diet, Doing well <Rosas Rojas - Last Filed: 06/18/20 10:07> Date of Service: 06/18/20 <Johnnie Neff - Last Filed: 06/18/20 12:06> Review of Systems General: Unremarkable Eyes: Unremarkable ENT: Unremarkable Respiratory: Unremarkable Cardiovascular: Unremarkable Genitourinary: Unremarkable Musculoskeletal: Hand Pain Integumentary: Unremarkable Neurological: Unremarkable <Rosas Rojas - Last Filed: 06/18/20 10:07> Physical Examination - Vital Signs Temperature: 97.5 F Blood Pressure: 100/57 Pulse: 69 Respirations: 17 Pulse Ox (%): 94 - Physical Exam General: Alert, In no apparent distress, Oriented x3 HEENT: Atraumatic, Normocephalic, PERRLA Neck: Supple Respiratory: Clear to auscultation bilaterally, Normal air movement Cardiovascular: No edema, Normal pulses Gastrointestinal: Normal bowel sounds, Soft and benign, Non-distended Musculoskeletal: No swelling, No erythema, Contractures (Left hand) Integumentary: No rashes, No breakdown, No significant lesion Neurological: Normal speech, Normal affect Other Physical/Emotional Findings: half-way - Studies Microbiology Data (last 24 hrs): 06/14/20 14:36 Blood - Blood Aerobic Blood Culture - Final 06/14/20 14:36 Blood - Blood Blood Culture Gram Stain - Final 06/14/20 14:36 Blood - Blood Anaerobic Blood Culture - Final 06/14/20 14:36 Blood - Blood Gram Stain - Final Medications List Reviewed: Yes <Rosas Rojas - Last Filed: 06/18/20 10:07> - Studies Microbiology Data (last 24 hrs): 06/14/20 14:36 Blood - Blood Aerobic Blood Culture - Final 06/14/20 14:36 Blood - Blood Blood Culture Gram Stain - Final 06/14/20 14:36 Blood - Blood Anaerobic Blood Culture - Final 06/14/20 14:36 Blood - Blood Gram Stain - Final <Johnnie Neff - Last Filed: 06/18/20 12:06> Assessment And Plan - Plan Impression: Toxic encephalopathy related to UTI, urine culture positive for E. Fergunosi Bacteremia Dehydration with moderate malnourishment Malnourished but with weakness muscle loss of body fat loss History of CVA with left hand contracture History of schizophrenia Plan: Toxic encephalopathy related to UTI, urine culture positive for E. Victorinaosi: Patient doing well. Continue Rocephin to cover both UTI and positive blood cultures. Patient will need a course of 10 days at discharge. [facility] but patient will have to have results on COVID prior to discharge and negative blood cultures. Will await blood culture results and check for Covid results. Bacteremia: Improving. Patient with 1 of 2 positive blood cultures growing gram-positive cocci in clusters. Repeat blood cultures with preliminary results of no growth for 24 hr. Continue antibiotic coverage for now. Patient is doing well and does not appear septic at this time. Vitals were stable. Dehydration with moderate malnourishment: Patient tolerating diet. Malnourished but with weakness muscle loss of body fat loss: continue diet History of CVA with left hand contracture: Patient doing well this time. Continue current medication. [facility] at the [facility] that they [facility] her nails-on the left hand and feet to prevent skin irritation and infection. Also recommend rolled towel to the left hand. History of schizophrenia: Continue current medication Discharge Plan: Intermediate Plan to discharge in: 24 Hours - Code Status/Comfort Care Code Status Assessed: Yes Physician Review Additional Text: The patient was seen and examined Agree with the findings and plan of care as documented by the [facility] Time Spent Managing PTS Care (In Minutes): 45 <Rosas Rojas - Last Filed: 06/18/20 10:07>
[2020-06-18] MEDS: MELATONIN 5 MG TABLET PO SCH (20:56)
[2020-06-18] MEDS: ATORVASTATIN 40 MG TAB PO SCH (20:58)
[2020-06-18] MEDS ORDERED: VANCOMYCIN 1.25 GM in NA CHLORIDE 0.9% 250 ML IVPB SCH (23:00)
[2020-06-18] MEDS ORDERED: VANCOMYCIN 1.5 GM in NA CHLORIDE 0.9% 500 ML IVPB ONE (23:00)
[2020-06-18] MEDS ORDERED: VANCOMYCIN 1 GM/VIAL ONE (23:33)
[2020-06-18] MEDS ORDERED: VANCOMYCIN 500 MG/VIAL ONE (23:35)
[2020-06-18] MEDS ORDERED: NA CHLORIDE 0.9% 250 ML ONE (23:37)
[2020-06-19] MEDS ORDERED: VANCOMYCIN 1 GM/VIAL ONE (02:07)
[2020-06-19] MEDS ORDERED: NA CHLORIDE 0.9% 500 ML ONE (02:07)
[2020-06-19] MEDS ORDERED: NA CHLORIDE 0.9% 100 ML IV ONE (02:08)
[2020-06-19 06:20] LABS: Absolute Lymphocytes (CBC) 2.9 K/uL (0.7-4.9); Basophils % 0.3 % (0-1.3); Hematocrit 36.9 % (36.0-45.0); Lymphocytes % 21.9 % (15.3-44.8); MPV 8.9 fL (7.6-11.3); RBC Red Blood Cell Count 3.77 M/uL (3.86-4.86)
[2020-06-19 06:44] LABS: BUN Blood Urea Nitrogen 12 mg/dL (7-18); Bicarbonate 29 mmol/L (21-32); Glucose Level 95 mg/dL (74-106); Sodium Level 141 mmol/L (136-145)
[2020-06-19] MEDS: BUSPIRONE HCL 5 MG TABLET PO SCH ×3 (09:00→20:33)
[2020-06-19] MEDS: VITAMIN D 1000 UNIT TAB PO SCH (09:00)
--- NOTE | 2020-06-19 10:28 | P.PN ---
Subjective Date of Service: 06/19/20 Chief Complaint: Altered mental status/dehydration/UTI Subjective: Improving, Doing well Review of Systems General: Unremarkable Eyes: Unremarkable ENT: Unremarkable Respiratory: Unremarkable Cardiovascular: Unremarkable Gastrointestinal: Unremarkable Genitourinary: Unremarkable Musculoskeletal: Hand Pain (Left hand pain) Neurological: Unremarkable Physical Examination - Vital Signs Temperature: 98.2 F Blood Pressure: 96/61 Pulse: 80 Respirations: 18 Pulse Ox (%): 96 - Physical Exam General: Alert, In no apparent distress, Oriented x3 HEENT: Atraumatic, Normocephalic, PERRLA, Mucous membr. moist/pink Neck: Supple, No Thyromegaly Respiratory: Clear to auscultation bilaterally, Normal air movement Cardiovascular: No edema, Normal pulses, Normal S1 S2 Capillary refill: <2 Seconds Gastrointestinal: Normal bowel sounds, Soft and benign, Non-distended Musculoskeletal: No erythema, Contractures (Left hand, rolled towel in place), Tenderness (Left hand) Integumentary: No rashes, No breakdown, No significant lesion, No tenderness/swelling Neurological: Normal tone, Sensation intact Other Physical/Emotional Findings: retirement - Studies Medications List Reviewed: Yes Assessment And Plan - Plan Impression: Toxic encephalopathy related to UTI, urine culture positive for E. Fergunosi Bacteremia Dehydration with moderate malnourishment Malnourished but with weakness muscle loss of body fat loss History of CVA with left hand contracture History of schizophrenia Plan: Toxic encephalopathy related to UTI, urine culture positive for E. Fergunosi: Patient doing well. She is alert and oriented x3. At her baseline. Continue Rocephin to cover both UTI and positive blood cultures. Patient will need a course of 10 days at discharge. Patient is had a 2nd set of positive blood cultures with a likely distally discharge. Check for Covid results. Bacteremia: Admission set of blood cultures were positive Repeat blood cultures 1 of 2 positive with gram-positive cocci. Infectious Disease consulted. Will await recommendations. Continue antibiotic coverage for now. Patient is doing well and does not appear septic at this time. Vitals were stable. Dehydration with moderate malnourishment: Patient tolerating diet. Malnourished but with weakness muscle loss of body fat loss: continue diet History of CVA with left hand contracture: At baseline. Continue current medication. Will recommend at the [facility] that they cut her nails-on the left hand and feet to prevent skin irritation and infection. Also recommend to continue rolled towel to the left hand. History of schizophrenia: Continue current medication Discharge Plan: Half-Way Plan to discharge in: 48 Hours - Code Status/Comfort Care Code Status Assessed: Yes Physician Review Additional Text: The patient was seen and examined Agree with the findings and plan of care as documented by the [facility] Time Spent Managing PTS Care (In Minutes): 45
[2020-06-19] MEDS: VANCOMYCIN/NS 1 gm 1 GM/250 ML BAG IV SCH ×2 (10:35→22:53)
[2020-06-19] MEDS: CEFTRIAXONE/SWI 1gm 1 GM/10 ML SYR IVP SCH (10:38)
[2020-06-19] MEDS: ENOXAPARIN 40 MG/0.4 ML SQ SCH (10:38)
[2020-06-19] MEDS: BACLOFEN 10 MG TAB PO SCH ×3 (10:39→20:32)
[2020-06-19] MEDS: GABAPENTIN 400 MG CAP PO SCH ×2 (10:39→20:32)
[2020-06-19] MEDS: DIVALPROEX ER 250 MG TAB PO SCH ×2 (10:39→20:32)
[2020-06-19] MEDS: levETIRAcetam 500 MG TAB PO SCH ×2 (10:39→20:32)
[2020-06-19] MEDS: RISPERIDONE 1 MG TABLET PO SCH ×2 (10:40→20:32)
[2020-06-19] MEDS: DOCUSATE NA 100 MG CAP PO SCH ×2 (10:40→20:32)
[2020-06-19] MEDS: LORATADINE 10 MG TAB PO SCH (10:40)
[2020-06-19] MEDS: CLOPIDOGREL 75 MG TABLET PO SCH (10:40)
[2020-06-19] MEDS: FLUTICASONE 50MCG NASAL SPRAY NAS SCH ×2 (10:51→22:39)
[2020-06-19] MEDS: POLYVINYL ALCOHOL 1.4% 15 ML OPTH SCH ×4 (10:52→22:39)
[2020-06-19] MEDS: BUSPIRONE HCL 15 MG TABLET PO SCH ×2 (10:54→22:38)
[2020-06-19] MEDS: ACETAMINOPHEN 500 MG TAB PO PRN ×2 (14:46→20:32)
[2020-06-19] MEDS: MELATONIN 5 MG TABLET PO SCH (20:32)
[2020-06-19] MEDS: ATORVASTATIN 40 MG TAB PO SCH (20:33)
[2020-06-20 03:27] VITALS: O2SAT 92
[2020-06-20] MEDS: ACETAMINOPHEN 500 MG TAB PO PRN ×3 (05:50→15:59)
[2020-06-20] MEDS: FLUTICASONE 50MCG NASAL SPRAY NAS SCH (09:00)
--- NOTE | 2020-06-20 09:04 | P.CNS ---
Date of Consult: 06/20/20 Subjective: Patient is a 55 year old female long-term resident who presents with AMS. Patient found to have UTI and bacteremia which I have been consulted for. Patient examined at bedside. Alert and oriented to self. Medical history obtained from medical record Past medical history: schizophrenia Social history: Denies tobacco and alcohol use Family History: Non contributory Allergies: ASA, PCN Active Medications Acetaminophen (Tylenol -Extra Strength) 500 mg PO Q4HP PRN PRN Reason: TEMP > 101' F Stop: 07/14/20 17:37 Last Admin: 06/20/20 05:50 Dose: 500 mg Documented by: Artificial Tears (Liquiflim Tears 1.4% Ophth [place]) 1 drops OPTH QID JOSE Stop: 07/15/20 09:01 Last Admin: 06/19/20 22:39 Dose: 1 drops Documented by: Atorvastatin Calcium (Lipitor) 40 mg PO BEDTIME JOSE Stop: 07/15/20 21:01 Last Admin: 06/19/20 20:33 Dose: 40 mg Documented by: Baclofen (Lioresal) 20 mg PO TID JOSE Stop: 07/15/20 09:01 Last Admin: 06/19/20 20:32 Dose: 20 mg Documented by: Buspirone HCl (Buspar) 5 mg PO BID JOSE Stop: 07/19/20 11:01 Last Admin: 06/19/20 20:33 Dose: 5 mg Documented by: Buspirone HCl (Buspirone Hcl) 15 mg PO BID JOSE Stop: 07/19/20 11:01 Last Admin: 06/19/20 22:38 Dose: 15 mg Documented by: Cholecalciferol (Vitamin D 1000 Iu Tab) 1,000 unit PO DAILY JOSE Stop: 07/15/20 09:01 Last Admin: 06/19/20 09:00 Dose: 1,000 unit Documented by: Clopidogrel Bisulfate (Plavix) 75 mg PO DAILY JOSE Stop: 07/15/20 09:01 Last Admin: 06/19/20 10:40 Dose: 75 mg Documented by: Divalproex Sodium (Depakote *Er*) 1,000 mg PO BID JOSE Stop: 07/15/20 09:01 Last Admin: 06/19/20 20:32 Dose: 1,000 mg Documented by: Docusate Sodium (Colace Cap) 100 mg PO BID JOSE Stop: 07/15/20 09:01 Last Admin: 06/19/20 20:32 Dose: 100 mg Documented by: Enoxaparin Sodium (Lovenox 40 Mg Inj) 40 mg SQ DAILY JOSE Stop: 07/14/20 18:01 Last Admin: 06/19/20 10:38 Dose: 40 mg Documented by: Fluticasone Propionate (Flonase 50mcg Nasal [place]) 2 sprays DONAVON BID JOSE Stop: 07/15/20 09:01 Last Admin: 06/19/20 22:39 Dose: 2 aer Documented by: Gabapentin (Neurontin) 800 mg PO BID [facility] Stop: 07/15/20 09:01 Last Admin: 06/19/20 20:32 Dose: 800 mg Documented by: Ceftriaxone Sodium/Sodium Chloride (Rocephin 1 Gm/10 Ml Swi Ivp) 1 gm in 10 mls @ 600 mls/hr IVP DAILY [facility]; Protocol Stop: 07/17/20 11:31 Last Admin: 06/19/20 10:38 Dose: 10 mls Documented by: Vancomycin HCl (Vancomycin 1 Gm/250 Ml Ns Ivpb) 1 gm in 250 mls @ 250 mls/hr IV Q12H [facility] Stop: 07/19/20 11:01 Last Admin: 06/19/20 22:53 Dose: 250 mls Documented by: Levetiracetam (Keppra Tab) 1,000 mg PO Q12H [facility] Stop: 07/15/20 09:01 Last Admin: 06/19/20 20:32 Dose: 1,000 mg Documented by: Loratadine (Claritin) 10 mg PO DAILY [facility] Stop: 07/15/20 09:01 Last Admin: 06/19/20 10:40 Dose: 10 mg Documented by: Melatonin (Melatonin) 5 mg PO BEDTIME [facility] Stop: 07/15/20 21:01 Last Admin: 06/19/20 20:32 Dose: 5 mg Documented by: Ondansetron HCl (Zofran) 4 mg IV Q6HP PRN PRN Reason: NAUSEA / VOMITING Stop: 07/14/20 17:37 Risperidone (Risperdal 1 Mg Tab) 2 mg PO BID [facility] Stop: 07/15/20 09:01 Last Admin: 06/19/20 20:32 Dose: 2 mg Documented by: Sodium Chloride (Normal Saline Flush) 10 ml IV BID JOSE Stop: 07/14/20 21:01 Last Admin: 06/19/20 22:39 Dose: 10 ml Documented by: ROS: CV: Denies chest pain RESP: Denies shortness of breath, cough : Reports burning with urination GI: Reports nausea and vomiting, denies diarrhea Objective: Temp Pulse Resp BP Pulse Ox 97.0 F 73 15 102/53 L 93 06/20/20 08:00 06/20/20 08:00 06/20/20 08:00 06/20/20 08:00 06/20/20 08:00 Labs: Na 141, K 4.0, BUN 12, Creat 0.56, albumin 2.9, WBC 13.4, Hgb 12.5, Hct 36.[address] 06/14: EXAM DESCRIPTION: CT - Ct Stroke Brain Wo Cont - 06/14/2020 2:02 pm CLINICAL HISTORY: Confusion/alteration of awareness COMPARISON: 2016 TECHNIQUE: Computed axial tomography of the head was obtained. All CT scans are performed using dose optimization technique as appropriate and may include automated exposure control or mA/KV adjustment according to patient size. FINDINGS: An intracranial bleed is not seen . The ventricles are normal in caliber. No extra-axial fluid collection is noted. Low-density areas within the frontal lobes having the appearance of old infarctions. Mild to moderate low-density within periventricular, deep and subcortical white matter likely ischemic changes secondary to small vessel disease Fluid within the sinuses/ mastoids is not seen. IMPRESSION: No acute intracranial abnormality is seen. If patient's symptoms persist MRI of the brain would be recommended. Chest xray 06/14: EXAM DESCRIPTION: RADChest Single View06/14/2020 2:37 pm CLINICAL HISTORY: Code stroke/alteration of consciousness COMPARISON: 2016 FINDINGS: The lungs appear clear of acute infiltrate. The heart is mildly enlarged IMPRESSION: No acute abnormalities displayed ROS: General: Awake, alert, oriented to self CV: S1,S2 RESP: Good breath sounds ABD: Nontender, abd scar : Mosquera catheter in place Skin: Left lateral ankle with pressure ulcer, wound bed with granulation tissue and mild serous drainage Assessment and plan: AMS Leukocytosis UTI, Urine cultures 06/14 positive for E. Fergusoni Blood cultures positive for staph coag. negative, most likely contamination Currently on Vancomycin day 2 and Rocephin day 4 Recommend to discontinue Vancomycin Upon discharge, patient can be changed to Bactrim PO Patient will need total of 7 days of antibiotics Protein calorie malnourished Left ankle stage 2 pressure ulcer, recommend medihoney daily Will continue to monitor Thank you for consultation Patient discussed with Dr. Naqvi
[2020-06-20] MEDS: GABAPENTIN 400 MG CAP PO SCH (09:20)
[2020-06-20] MEDS: CEFTRIAXONE/SWI 1gm 1 GM/10 ML SYR IVP SCH (09:20)
[2020-06-20] MEDS: LORATADINE 10 MG TAB PO SCH (09:20)
[2020-06-20] MEDS: ENOXAPARIN 40 MG/0.4 ML SQ SCH (09:20)
[2020-06-20] MEDS: DOCUSATE NA 100 MG CAP PO SCH (09:21)
[2020-06-20] MEDS: VITAMIN D 1000 UNIT TAB PO SCH (09:21)
[2020-06-20] MEDS: RISPERIDONE 1 MG TABLET PO SCH (09:21)
[2020-06-20] MEDS: levETIRAcetam 500 MG TAB PO SCH (09:21)
[2020-06-20] MEDS: BACLOFEN 10 MG TAB PO SCH ×2 (09:21→14:58)
[2020-06-20] MEDS: BUSPIRONE HCL 5 MG TABLET PO SCH (09:21)
[2020-06-20] MEDS: CLOPIDOGREL 75 MG TABLET PO SCH (09:22)
[2020-06-20] MEDS: BUSPIRONE HCL 15 MG TABLET PO SCH (09:26)
[2020-06-20] MEDS: POLYVINYL ALCOHOL 1.4% 15 ML OPTH SCH ×3 (09:28→16:23)
[2020-06-20] MEDS: DIVALPROEX ER 250 MG TAB PO SCH (09:34)
[2020-06-20 10:09] LABS: Absolute Lymphocytes (CBC) 3.2 K/uL (0.7-4.9); Basophils % 1.1 % (0-1.3); Hematocrit 38.9 % (36.0-45.0); Lymphocytes % 38.5 % (15.3-44.8); MPV 9.4 fL (7.6-11.3); RBC Red Blood Cell Count 3.94 M/uL (3.86-4.86)
--- NOTE | 2020-06-20 10:28 | P.PN ---
Subjective Date of Service: 06/20/20 Chief Complaint: Altered mental status/dehydration/UTI Subjective: Tolerating diet, Doing well <Rosas Rojas - Last Filed: 06/20/20 10:29> Date of Service: 06/20/20 <Johnnie Neff - Last Filed: 06/20/20 16:40> Review of Systems General: Unremarkable Eyes: Unremarkable ENT: Unremarkable Respiratory: Unremarkable Cardiovascular: Unremarkable Gastrointestinal: Unremarkable Genitourinary: Unremarkable Musculoskeletal: Hand Pain (Left hand) Integumentary: Unremarkable Neurological: Unremarkable <BobRosas - Last Filed: 06/20/20 10:29> Physical Examination - Vital Signs Temperature: 97.0 F Blood Pressure: 102/53 Pulse: 73 Respirations: 15 Pulse Ox (%): 93 - Physical Exam General: Alert, In no apparent distress, Oriented x3 HEENT: Atraumatic, Normocephalic, PERRLA Neck: Supple, No Thyromegaly Respiratory: Clear to auscultation bilaterally, Normal air movement Cardiovascular: No edema, Normal pulses Capillary refill: <2 Seconds Gastrointestinal: Normal bowel sounds, Soft and benign, Non-distended Musculoskeletal: Contractures (Left hand/left ankle) Integumentary: Pressure ulcer (Left ankle/Stage 2/POA) Neurological: Normal tone, Sensation intact, Normal affect Other Physical/Emotional Findings: halfway - Studies Microbiology Data (last 24 hrs): 06/14/20 18:53 Blood - Blood Aerobic Blood Culture - Final No growth in 5 days. 06/14/20 18:53 Blood - Blood Anaerobic Blood Culture - Final No growth in 5 days. Medications List Reviewed: Yes <Rosas Rojas - Last Filed: 06/20/20 10:29> - Studies Microbiology Data (last 24 hrs): 06/14/20 18:53 Blood - Blood Aerobic Blood Culture - Final No growth in 5 days. 06/14/20 18:53 Blood - Blood Anaerobic Blood Culture - Final No growth in 5 days. <Johnnie Neff - Last Filed: 06/20/20 16:40> Assessment And Plan - Plan Impression: Toxic encephalopathy related to UTI, urine culture positive for E. Fergunosi Bacteremia Dehydration with moderate malnourishment Malnourished but with weakness muscle loss of body fat loss History of CVA with left hand contracture Left ankle stage II pressure ulcer present on admission: History of schizophrenia Plan: Toxic encephalopathy related to UTI, urine culture positive for E. Fergunosi: Patient doing well. She is alert and oriented x3. At her baseline. Continue Rocephin to cover both UTI. Will discharge on p.o. Bactrim for a 7 day course. Patient is ready for discharge from a medical standpoint. Just waiting on Covid results. Bacteremia: Resolved, ID consulted. Likely contaminants. Coag-negative results. Will discontinue vancomycin. Patient's vitals are stable and does not appear septic. Dehydration with moderate malnourishment: Patient tolerating diet. Malnourished but with weakness muscle loss of body fat loss: continue diet History of CVA with left hand contracture: At baseline. Continue current medication. Will recommend at the [facility] that they cut her nails-on the left hand and feet to prevent skin irritation and infection. Also recommend to continue rolled towel to the left hand. Patient tends to pull rolled towel out of her left hand. Left ankle stage II pressure ulcer present on admission: Present on admission. Will continue pressure relieving measures and Medi Honey daily. History of schizophrenia: Continue current medication Discharge Plan: Jail Plan to discharge in: 24 Hours - Code Status/Comfort Care Code Status Assessed: Yes Physician Review Additional Text: The patient was seen and examined Agree with the findings and plan of care as documented by the OLIVER Time Spent Managing PTS Care (In Minutes): 45 <Rosas Rojas - Last Filed: 06/20/20 10:29>
[2020-06-20 10:39] LABS: BUN Blood Urea Nitrogen 10 mg/dL (7-18); Bicarbonate 28 mmol/L (21-32); Glucose Level 96 mg/dL (74-106); Potassium 4.6 mmol/L (3.5-5.1); Sodium Level 142 mmol/L (136-145)
--- NOTE | 2020-06-20 15:17 | P.DS ---
Admission Date: 06/15/20 Discharge Date: 06/20/20 Reason for Admission: Altered mental status/dehydration/UTI Consultations: Infectious Disease-Dr. Naqvi Brief History of Present Illness: 55-year-old female with past medical history of schizophrenia that is a skilled nursing resident presents to the emergency room via EMS with complaints of altered mental status and dehydration. Patient was evaluated by skilled nursing staff and noted to not be herself. Was alert only to self and normally patient is alert and oriented x3. EMS was called and patient was brought to the emergency room. In emergency room patient is weak, nonfocal and alert oriented to self. She is started on IV fluids. Lab work is fairly unremarkable. UA shows a UTI with positive leukocyte esterase. CT of the head shows frontal lobe old infarcts. Patient also has a history of schizophrenic at and is currently on valproic acid. Valproic acid level is slightly elevated at 105. Chest x-ray shows no acute abnormalities. On examination patient is nonfocal, in no distress soft-spoken but only oriented to self. Malnourished. She appears dehydrated. Patient will be admitted Overnite for observation. Hospital Course: During this hospital course patient was admitted for altered mental status believed to be secondary to a urinary tract infection. Patient was started on IV ceftriaxone, gentle IV hydration and tolerated therapy well. Per nursing staff at her skilled nursing patient was usually alert and oriented x3. On admission patient was alert and oriented to self. Within 24 hr of IV therapy patient's mentation returned to baseline and patient has been doing well since. She has been slowly improving and was going to be discharged but had positive blood cultures which were growing Gram-positive cocci, coag-negative. Repeat blood cultures showed 1 of 2 positive blood cultures again with gram-positive cocci, coag-negative. Infectious Disease was consulted. Positive blood cx are believe to be contamination and not bacteremia. Patient did not appear to be septic and vitals were stable. She was also noted to have a stage II pressure ulcer on her left ankle. Instructed to continue Medihoney daily and pressure relieving measures. She also has contracture of the left hand secondary to a prior CVA. Patient needs to have her nails cut on her toes and her hands in particular lower left hand to prevent skin irritation or breaking of the skin and possible future infections. She would also benefit from a rolled towel to keep fingers from beginning to the palm of the left hand. From a medical standpoint patient was stable for discharge but was waiting for Covid test results. Patient's Covid test is negative. Patient can be discharged back to skilled nursing today. <Rosas Rojas - Last Filed: 06/20/20 15:06> Admission Date: 06/15/20 Discharge Date: 06/20/20 <Johnnie Neff - Last Filed: 06/20/20 16:40> Disposition: TRANSFER TO [facility] Discharge Condition: GOOD Vital Signs/Physical Exam: Temp Pulse Resp BP Pulse Ox 96.8 F 69 15 100/49 L 94 06/20/20 12:00 06/20/20 12:00 06/20/20 12:00 06/20/20 12:00 06/20/20 12:00 General: Alert, In no apparent distress, Oriented x3 HEENT: Atraumatic, Normocephalic, PERRLA Neck: Supple, No Thyromegaly Respiratory: Clear to auscultation bilaterally, Normal air movement Cardiovascular: No edema, Normal pulses, Regular rate/rhythm Capillary refill: <2 Seconds Gastrointestinal: Normal bowel sounds, Soft and benign, Non-distended Musculoskeletal: No swelling, No erythema, Contractures (Left hand) Integumentary: No rashes, No tenderness/swelling, No erythema, Pressure ulcer (Stage II pressure ulcer, left ankle. Present on admission) Neurological: Normal tone, Sensation intact Other Physical/Emotional Findings: long term Laboratory Data at Discharge: WBC 8.2 K/uL (4.3-10.9) D 06/20/20 09:51 Hgb 13.0 g/dL (12.0-15.0) 06/20/20 09:51 Hct 38.9 % (36.0-45.0) 06/20/20 09:51 Plt Count 230 K/uL (152-406) D 06/20/20 09:51 PT 11.4 SECONDS (9.5-12.5) 06/14/20 13:44 INR 0.97 06/14/20 13:44 APTT 25.3 SECONDS (24.3-36.9) 06/14/20 13:44 Sodium 142 mmol/L (136-145) 06/20/20 09:51 Potassium 4.6 mmol/L (3.5-5.1) 06/20/20 09:51 BUN 10 mg/dL (7-18) 06/20/20 09:51 Creatinine 0.47 mg/dL (0.55-1.3) L 06/20/20 09:51 Glucose 96 mg/dL (74-106) 06/20/20 09:51 Magnesium 1.9 mg/dL (1.8-2.4) 06/16/20 05:37 Total Bilirubin 0.3 mg/dL (0.2-1.0) 06/14/20 13:44 AST 21 U/L (15-37) 06/14/20 13:44 ALT 17 U/L (12-78) 06/14/20 13:44 Alkaline Phosphatase 70 U/L (45-117) 06/14/20 13:44 <Rosas Rojas - Last Filed: 06/20/20 15:06> Vital Signs/Physical Exam: Temp Pulse Resp BP Pulse Ox 96.5 F L 75 15 96/53 L 92 06/20/20 16:00 06/20/20 16:00 06/20/20 16:00 06/20/20 16:00 06/20/20 16:00 Laboratory Data at Discharge: WBC 8.2 K/uL (4.3-10.9) D 06/20/20 09:51 Hgb 13.0 g/dL (12.0-15.0) 06/20/20 09:51 Hct 38.9 % (36.0-45.0) 06/20/20 09:51 Plt Count 230 K/uL (152-406) D 06/20/20 09:51 PT 11.4 SECONDS (9.5-12.5) 06/14/20 13:44 INR 0.97 06/14/20 13:44 APTT 25.3 SECONDS (24.3-36.9) 06/14/20 13:44 Sodium 142 mmol/L (136-145) 06/20/20 09:51 Potassium 4.6 mmol/L (3.5-5.1) 06/20/20 09:51 BUN 10 mg/dL (7-18) 06/20/20 09:51 Creatinine 0.47 mg/dL (0.55-1.3) L 06/20/20 09:51 Glucose 96 mg/dL (74-106) 06/20/20 09:51 Magnesium 1.9 mg/dL (1.8-2.4) 06/16/20 05:37 Total Bilirubin 0.3 mg/dL (0.2-1.0) 06/14/20 13:44 AST 21 U/L (15-37) 06/14/20 13:44 ALT 17 U/L (12-78) 06/14/20 13:44 Alkaline Phosphatase 70 U/L (45-117) 06/14/20 13:44 <Johnnie Neff - Last Filed: 06/20/20 16:40> Patient Discharge Instructions: Please instruct skilled nursing staff to keep rolled towel in left hand, 2 clips nails of the hands and toes. Review of med ications and instructed skilled nursing staff to complete oral antibiotic coverage for 7 days. Also to monitor p.o. intake. Diet: Regular Activity: Bedrest Time spent managing pt's care (in minutes): 50 <Rosas Rojas - Last Filed: 06/20/20 15:06> <Johnnie Neff - Last Filed: 06/20/20 16:40> Home Medications: Acetaminophen 650 mg PO TID PRN MDD 3 grams 06/14/20 Acetaminophen [Tylenol Extra Strength] 1 tab PO DAILY 06/14/20 Atorvastatin Calcium [Lipitor*] 40 mg PO BEDTIME 06/14/20 Baclofen [Lioresal] 20 mg PO TID 06/14/20 Buspirone HCl [Buspar] 20 mg PO BID 06/14/20 Cholecalciferol (Vitamin D3) [Vitamin D3] 1,000 unit PO DAILY 06/14/20 Clopidogrel Bisulfate [Plavix*] 1 tab PO DAILY 06/14/20 Dextran 70/Hypromellose [Artificial Tears Drops] 15 ml OP QID 06/14/20 Divalproex Sodium [Depakote ER] 1,000 mg PO BID 06/14/20 Docusate Sodium 100 mg PO BID 06/14/20 Fluticasone [Flonase 50MCG Nasal [place]*] 2 sprays IH BID 06/14/20 Gabapentin 800 mg PO BID 06/14/20 Loratadine [Claritin*] 10 mg PO DAILY 06/14/20 Melatonin 5 mg PO BEDTIME 06/14/20 Risperidone [Risperdal] 2 mg PO BID 06/14/20 levETIRAcetam [Keppra*] 1,000 mg PO Q12H 06/14/20 Medihoney [Mediney Woundcare Gel*] 1 appl TOP DAILY tube 06/20/20 Smz./Tmp. [Bactrim Ds 800 MG/160 MG] 1 tab PO BID 7 Days #14 tab 06/20/20 New Medications: Smz./Tmp. [Bactrim Ds 800 MG/160 MG] 1 tab PO BID 7 Days #14 tab
[2020-06-20 16:39] VITALS: BP 96/53; TEMP 96.5
[2020-06-21] MEDS ORDERED: MEDIHONEY 44 ML TOPICAL TUBE TOP SCH (09:00)
== END 2020-06-20 17:51 | DRG 689 ==
LOC: ER 13:33 → ERHOLD 17:33 → 2ND 21:45 → OBSVTOIN 06-15 08:29
PROVIDERS: ADMIT Family Medicine; ATTEND Family Medicine
DX: N39.0 Urinary tract infection, site not specified (principal); G92 Toxic encephalopathy; E44.0 Moderate protein-calorie malnutrition; Z68.1 Body mass index [BMI] 19.9 or less, adult; R78.81 Bacteremia; E86.0 Dehydration; I25.10 Atherosclerotic heart disease of native coronary artery without angina pectoris; D72.829 Elevated white blood cell count, unspecified; L89.522 Pressure ulcer of left ankle, stage 2; I10 Essential (primary) hypertension; B96.20 Unspecified Escherichia coli [E. coli] as the cause of diseases classified elsewhere; M24.542 Contracture, left hand; Z86.73 Personal history of transient ischemic attack (TIA), and cerebral infarction without residual deficits; Z11.59 Encounter for screening for other viral diseases; Z88.0 Allergy status to penicillin; Z88.8 Allergy status to other drugs, medicaments and biological substances
CPT/HCPCS: 36415; 51702; 70450; 71045; 80048; 80076; 80164; 80202; 81003; 83735; 83880; 84145; 84484; 85025; 85610; 85730; 87040; 87077; 87086; 87088; 87186; 87205; 93005; 96361; 96365; 96375; 99285; G0378; J0696; J1650; J2405; J3370; J7030; J7040; J7050; U0002

== ENCOUNTER 2020-08-01 13:43 | Inpatient (IN) | payer OTHER ==
--- OUTSIDE RECORDS SUMMARY | 2020-08-01 13:46 | XMS REPORT | Clinical Summary ---
:1965 Author Organization [facility] Address [address] [place] [address] Care Team Providers Name Role Phone Julia [...] Not on file Results Not on fileafter 08/01/2019 Insurance Payer Benefit Plan / Group Subscriber ID Type Phone A ddress MEDICARE MEDICARE A B xxxxxxxxxx Medicare MEDICAID MEDICAID [facility] xxxxxxxxx Medicaid Advance Directives For more information, please contact:[address] [phone] Code Status Date Activated Date Inactivated Comments Full Code 09/15/2017 11:20 PM 09/18/2017 7:49 PM This code status was determined by: Patient
--- OUTSIDE RECORDS SUMMARY | 2020-08-01 13:47 | XMS REPORT | Continuity of Care Document ---
:1965 Author Organization [facility] t Address 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 0-31 Catina kes - ia ia 00:00: Medical 00 [place] Moderate Moderate Disease Active 2016[facility]12 [facility] protein-ca protein-ca 0-31 Catina kes - tristin tristin 00:00: Medical malnutriti malnutriti 00 Ce nter on on Nonintract Nonintract Disease Active 2016-[address] able able 0-16 [facility] - generalize generalize 00:00: Me dical d d 00 Center idiopathic idiopathic epilepsy epilepsy without without status status epilepticu epilepticu s s Leukocytos Leukocytos Disease Active 2016-[address] is is 0-16 [facility] - 00:[facility]: Medical 00 [place] Encephalop Encephalop Disease Active 2016-[address] athy acute athy acute 0-15 Catina kes - 00:00: Medical 00 Center Allergies, Adverse Reactions, Alerts Allergy Allergy Status Severity Reaction(s) Onset Inactive Treating Comm ents Source Name Type Date Date Clinician Aspirin Propensi Active Nausea And 2016-[address] [facility] [address] ty to Vomiting 0-16 [facility] - adverse 00:00: Medical reaction 00 [place] Penicill Propensi Active Rash 2016-[address] [facility] ty to 0-16 [facility] - adverse 00:00: Medical reaction 00 [place] Social History Social Habit Start Date Stop Date Quantity Comments Source Sex Assigned At [facility] Medications Ordered Filled Start Stop Current Ordering [...] 40 MG 03:55: daily. Medical tablet 34 [place] cholecalcif 2016-12 Yes low vitamin 1000U QD Take 1,[address] [facility] manuel 0-16 D levels Units by [facility] - (VITAMIN 03:55: mouth Medical D3) 1,000 34 daily. Center unit tablet baclofen 2016-12 Yes muscle 20mg Q.15702432 Take [address] [facility] (LIORESAL) 0-16 spasms [id number] by mouth 3 [facility] - 20 MG 03:55: caused by a 3D (three) Me dical tablet 33 spinal times Center disease daily. acetaminoph 2016-12 Yes pain 650mg Q.22633326 Take [address] en 0-16 [id number] mg by [facility] - (TYLENOL) 03:55: 3D mouth 3 Medic al 325 MG 33 (three) Center tablet times daily. benztropine 2016-12 Yes extrapyrami .5mg Q.5D Take 0.[address] (COGENTIN) 0-16 huy mg by [facility] - 0.5 MG 03:55: disease, a mouth 2 Me dical tablet 33 type of (two) Center movement times disorder daily. divalproex 2016-12 Yes epilepsy 500mg Q.95193069 Take [address] (DEPAKOTE) 0-16 [id number] mg by Catina kes - 250 MG [...] 1095) No growth in 5 days BLOOD [id number] 11:01:00 Test Item Value Reference Range Interpretation Comments CULTURE (BEAKER) (test No growth in 5 days code = 1095) URINE [id number] 11:15:00 Test Item Value Reference Range Interpretation Comments CULTURE (BEAKER) (test code = 1095) No growth [id number] 08:30:00 Test Item Value Reference Range Interpretation Comments AMMONIA (BEAKER) (test code = 348) 69 mol/L 18-72 CBC W/PLT COUNT & AUTO [id number] 07:44:00 Test Item Value Reference Range Interpretation [...] GRANULOCYTES-RELATIVE PERCENT (BEAKER) (test code = 2801) [id number] 07:09:00 Test Item Value Reference Range Interpretation Comments MAGNESIUM (BEAKER) (test code = 1.7 mg/dL 1.6-2.6 627) BASIC METABOLIC [id number] 07:09:00 Test Item Value Reference Range Interpretation [...] FOR DIALYSIS PATIEN TS. VALPROIC ACID LEVEL, [id number] 18:11:00 Test Item Value Reference Range Interpretation Comments VALPROIC ACID TOTAL (BEAKER) (test 94 ug/mL 50-100 code = 924) Therapeutic range for some clinical conditions may be >100 ug/mLMAGNESIUM 2017-09-17 07:11:00 Test Item Value Reference Range Interpretation Comments MAGNESIUM (BEAKER) 1.6 mg/dL 1.6-2.6 Specimen slightly (test code = 627) hemolyzed BASIC METABOLIC [id number] 07:11:00 Test Item Value Reference Range Interpretation [...] DIALYSIS PATIEN TS. LACTIC ACID, VENOUS, WHOLE [id number] 07:03:00 Test Item Value Reference Range Interpretation Comments LACTATE BLOOD VENOUS 1.1 mmol/L 0.5-2.2 Specime n moderately (2) (BEAKER) (test hemolyzed code = 8522) Effective 04/04/2016: Units/Reference Range ChangeNew: 0.5-2.2 mmol/L Previous: 5-20 mg/dLCBC W/PLT COUNT & AUTO [id number] 06:58:00 Test Item Value Reference Range Interpretation [...] (test code = 2801) EEG AWAKE AND [id number] 15:16:00Reason for exam:->abnormal movements, AMSDATE OF TEST: 09/16/2017 DATE OF REPORT 09/16/2017 ACC: [id number] Start time: 10:52 Stoptime: 11:13 ICD-10: R41.82 CPT Code: 81435 HISTORY: 52 year old woman with prior [...] of epilepsy remains, consider additional EEG recordings. Parias Muller MD Neurophysiology Fellow Tai Jackson M.D.,[facility] Professor of Neurology Director, [facility] Epilepsy Center Head, [facility] ophysiology Lab CBC W/PLT COUNT & AUTO [id number] 12:02:00 Test Item Value Reference Range Interpretation [...] (test code = Normal 762) URINALYSIS W/ [id number] 11:57:00 Test Item Value Reference Range Interpretation [...] 2795) Catheter RAD, CHEST, 1 VIEW, NON [id number] 10:55:00Reason for exam:- >pneumoniaShould this be performed [...] MDReport Verified Date/Time: 09/16/2017 10:55:21 Reading Location: [facility] Radiology Reading Room BASIC METABOLIC [id number] 06:30:00 Test Item Value Reference Range Interpretation [...]
--- NOTE | 2020-08-01 14:19 | RAD REPORT ---
EXAM DESCRIPTION: RAD - Chest Single View - 08/01/2020 2:11 pm CLINICAL HISTORY: ams, unresponsive COMPARISON: Portable June 14 TECHNIQUE: AP portable chest image was obtained 08/01/2020 2:11 pm . FINDINGS: No mass, consolidation or pulmonary edema. Underlying chronic interstitial changes are sincere dent. Heart and vasculature are normal. No measurable pleural effusion and no pneumothorax. No acute bony abnormality seen. No acute aortic findings suspected. IMPRESSION: No acute cardiopulmonary process. No significant change from comparison.
[2020-08-01 14:52] LABS: Absolute Lymphocytes (CBC) 3.4 K/uL (0.7-4.9); Basophils % 0.3 % (0-1.3); Hematocrit 38.3 % (36.0-45.0); Lymphocytes % 30.7 % (15.3-44.8); MPV 9.6 fL (7.6-11.3); RBC Red Blood Cell Count 3.85 M/uL (3.86-4.86)
[2020-08-01 14:56] LABS: Protime INR 1.1
[2020-08-01 15:04] LABS: Arterial Blood Carboxyhemoglob 1.5 % (0-1.5); Blood Gas Oxyhemoglobin 93.2 % (94-97); Blood O2 Saturation 95.4 % (92-98.5)
[2020-08-01 15:08] LABS: ALT/SGPT 15 U/L (12-78); AST/SGOT 29 U/L (15-37); Alkaline Phosphatase 60 U/L (45-117); Amylase 25 U/L (25-115); BUN Blood Urea Nitrogen 10 mg/dL (7-18); Bicarbonate 23 mmol/L (21-32); Bilirubin Direct < 0.1 mg/dL (0-0.2); Bilirubin Total 0.3 mg/dL (0.2-1.0); CKMB Creatine Kinase MB 3.7 ng/mL (0.3-3.6); Creatine Phosphokinase 928 U/L (26-192); Glucose Level 76 mg/dL (74-106); Lipase 47 U/L (73-393); Potassium 3.7 mmol/L (3.5-5.1); Protein, Total 6.7 g/dL (6.4-8.2); Sodium Level 143 mmol/L (136-145); Troponin (Emerg Dept Use Only) < 0.02 ng/mL (0.0-0.045)
--- NOTE | 2020-08-01 15:16 | RAD REPORT ---
EXAM DESCRIPTION: CT - Head Brain Wo Cont - 08/01/2020 2:58 pm CLINICAL HISTORY: ams;Declining state COMPARISON: Ct Stroke Brain Wo Cont dated 06/14/2020 TECHNIQUE: Axial 5 mm thick images of the head were obtained without IV contrast. All CT scans are performed using dose optimization technique as appropriate and may include automated exposure control or mA/KV adjustment according to patient size. FINDINGS: No intracranial hemorrhage, mass, edema or shift of mid-line structures. No acute cortical infarction. No cortical edema or sulcal effacement. Atrophy changes are present. Findings are mild b ut greater than expected for age. Ventricles are in proportion to volume loss. Posterior left frontal chronic ischemic change or encephalomalacia changes are present. Patient has extensive bilateral sub frontal white matter hypodensity. This subfrontal encephalomalacia is commonly seen with remote traum a. Intracranial findings are not substantially different from comparison. No abnormal extra-axial flu id collections. Mastoid air cells and visualized portions of the paranasal sinuses are clear. No acute bony findings. IMPRESSION: No hemorrhage, edema or acute intracranial finding. Patient has extensive intracranial findings detailed above. These are stable from the June 14 examina tion.
--- NOTE | 2020-08-01 15:17 | RAD REPORT ---
EXAM DESCRIPTION: CT - Chest For Pe Angio - 08/01/2020 2:59 pm CLINICAL HISTORY: AMS COMPARISON: Chest Abd Pelvis Wo Con dated 09/15/2017 TECHNIQUE: Dynamically enhanced 3 mm thick images of the chest were obtained during administration o f approximately 150mL Isovue 370 IV contrast. Coronal and oblique MIP reconstruction images were gene rated and reviewed. Exam utilizes a protocol to evaluate the pulmonary arterial tree. All CT scans are performed using dose optimization technique as appropriate and may include automated exposure control or mA/KV adjustment according to patient size. FINDINGS: No pulmonary emboli are identified. The aorta as imaged shows no acute or suspicious finding. No pericardial thickening or effusion. No focal mass or consolidation. Atelectasis changes are present along the posterior aspect of each arron ng field. No aspiration or infectious pneumonia changes identified. No pleural effusion or pleural th ickening. No mediastinal or hilar suspicious masses. No chest wall masses or abnormal axillary lymphadenopathy. IMPRESSION: No pulmonary emboli identified. Atelectasis changes are present. No aspiration or infectious pneumonia.
[2020-08-01 15:19] LABS: Urine Blood 1+ (NEG); Urine Glucose NEGATIVE (NEG); Urine Protein 1+ (NEG); Urine Specific Gravity 1.015 (1.005-1.030)
[2020-08-01 15:26] LABS: Urine Bacteria 20-50 /HPF (<20); Urine Culture Reflex Order REFLEXED; Urine Mucus 2+ /HPF (NONE SEEN)
[2020-08-01] MEDS ORDERED: NA CHLORIDE 0.9% 1,000 ML ONE (15:56)
[2020-08-01] MEDS ORDERED: Levofloxacin500mg IV 500 MG/100 ML BAG IV ONE (15:56)
--- NOTE | 2020-08-01 16:07 | EDPHYS ---
Physician Documentation [facility] Name: Grace Guzman Age: 55 yrs Sex: Female : 1965 Arrival Date: 08/01/2020 Time: 13:48 Bed 6 Private MD: ED Physician Cecilio Kwan HPI: 08/01 16:02 This 55 yrs old Female presents to ER via EMS with complaints of Unresponsive.snw 16:02 The patient's problem is reported as altered mental status, decreased responsiveness. snw Onset: The symptoms/episode began/occurred gradually, 3 day(s) ago, and became persistent. Duration: The episode is continuous. Context: symptoms became apparent at [facility]. The symptoms are alleviated by nothing. Severity of symptoms: At their worst the symptoms were moderate. Patient's baseline: Neuro: not alert, Motor: contracted, Speech: none, The patient has a previous history of CVA, MR, Schizophrenia, Epilepsy, CVA. The patient has experienced similar episodes in the past. It is unknown whether or not the patient has recently seen a physician. 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 - Social history:: Smoking status: unknown. ROS: 16:01 Eyes: Negative for injury, pain, redness, and discharge, ENT: Negative for injury, snw pain, and discharge, Neck: Negative for injury, pain, and swelling, Cardiovascular: Negative for chest pain, palpitations, and edema, Respiratory: Negative for shortness of breath, cough, wheezing, and pleuritic chest pain, Abdomen/GI: Negative for abdominal pain, nausea, vomiting, diarrhea, and constipation, Back: Negative for injury and pain, : Negative for injury, bleeding, discharge, and swelling, MS/Extremity: Negative for injury and deformity, Skin: Negative for injury, rash, and discoloration. 16:01 Constitutional: Positive for AMS. decreased responsiveness, hypotension. 16:01 Neuro: Positive for altered mental status. Exam: 15:53 Radiologist reports: no acute changes snw 15:53 Head/Face: Normocephalic, atraumatic. Eyes: Pupils equal round and reactive to light, extra-ocular motions intact. Lids and lashes normal. Conjunctiva and sclera are non-icteric and not injected. Cornea within normal limits. Periorbital areas with no swelling, redness, or edema. 15:53 Neck: Trachea midline, no thyromegaly or masses palpated, and no cervical lymphadenopathy. Supple, full range of motion without nuchal rigidity, or vertebral point tenderness. No Meningismus. Chest/axilla: Normal chest wall appearance and motion. Nontender with no deformity. No lesions are appreciated. Cardiovascular: Regular rate and rhythm with a normal S1 and S2. No gallops, murmurs, or rubs. Normal PMI, no JVD. No pulse deficits. Respiratory: Lungs have equal breath sounds bilaterally, clear to auscultation and percussion. No rales, rhonchi or wheezes noted. No increased work of breathing, no retractions or nasal flaring. Abdomen/GI: Soft, non-tender, with normal bowel sounds. No distension or tympany. No guarding or rebound. No evidence of tenderness throughout. Back: No spinal tenderness. No costovertebral tenderness. Full range of motion. MS/ Extremity: Pulses equal, no cyanosis. Neurovascular intact. Full, normal range of motion. 15:53 Constitutional: The patient appears frail, lethargic, pale, unkempt. 15:53 ENT: Mouth: Oral mucosa: dry, Gums: reddened. 15:53 Skin: Appearance: Color: pale, Temperature: cool, Moisture: dry, petechiae, not noted, posterior thighs with pressure noted but no open wounds. 15:53 Neuro: Orientation: unable to test, Mentation: responsive to pain, Memory: unable to test, Abnormal movements: there are no abnormal movements. Vital Signs: 13:40 BP 96 / 62; Pulse 79; Resp 13; Temp 97.9; Pulse Ox 96% ; jl7 14:00 BP 79 / 59; Pulse 79; Resp 13; Pulse Ox 96% ; jl7 14:15 BP 105 / 73; Pulse 83; Resp 12; Pulse Ox 96% ; jl7 15:16 BP 116 / 66; Pulse 83; Resp 14; Pulse Ox 96% ; jl7 15:45 BP 107 / 71; Pulse 76; Resp 15; Pulse Ox 96% ; jl7 17:00 BP 87 / 60; Pulse 62; Resp 13 S; Pulse Ox 97% on R/A; jl7 MDM: 13:53 Patient medically screened. snw 16:01 Data reviewed: vital signs, nurses notes. Data interpreted: Pulse oximetry: on room air snw is 96 %. Interpretation: acceptable. Counseling: I had a detailed discussion with the patient and/or guardian regarding: the historical points, exam findings, and any diagnostic results supporting the discharge/admit diagnosis, lab results, radiology results, the need for further work-up and treatment in the hospital. Physician consultation: Derian Yan DO was called at 16:01, was contacted at 16:01, regarding admission, to the telemetry unit. 08/01 13:58 Order name: ABG; Complete Time: 15:12 w 08/01 13:58 Order name: T\T\S snw 08/01 13:58 Order name: Amylase, Serum; Complete Time: 15:12 w 08/01 13:58 Order name: Basic Metabolic Panel; Complete Time: 15:12 w 08/01 13:58 Order name: Blood Culture Adult (2) w 08/01 13:58 Order name: CBC with Diff; Complete Time: 15:01 w 08/01 13:58 Order name: Ckmb; Complete Time: 15:12 snw 08/01 13:58 Order name: CPK; Complete Time: 15:12 snw 08/01 13:58 Order name: Lactate; Complete Time: 15:12 snw 08/01 13:58 Order name: LFT's; Complete Time: 15:12 snw 08/01 13:58 Order name: Lipase; Complete Time: 15:12 snw 08/01 13:58 Order name: Procalcitonin; Complete Time: 15:25 w 08/01 13:58 Order name: Protime (+inr); Complete Time: 15:04 w 08/01 13:58 Order name: Ptt, Activated; Complete Time: 15:04 w 08/01 13:58 Order name: Troponin (emerg Dept Use Only); Complete Time: 15:12 snw 08/01 13:58 Order name: Urine Microscopic Only; Complete Time: 15:31 snw 08/01 13:58 Order name: Chest Single View XRAY; Complete Time: 14:37 snw 08/01 13:59 Order name: Glucose, Ancillary Testing EDPR 08/01 13:59 Order name: AMMONIA; Complete Time: 15:12 snw 08/01 13:59 Order name: CT Head Brain wo Cont; Complete Time: 15:21 snw 08/01 13:59 Order name: CT Chest For PE Angio; Complete Time: 15:21 snw 08/01 14:32 Order name: CREATININE WHOLE BLOOD; Complete Time: 14:37 EDPR 08/01 14:49 Order name: EKG Electrocardiogram EDPR 08/01 15:16 Order name: Urine Dipstick--Ancillary (enter results); Complete Time: 15:21 bd 08/01 15:27 Order name: Urine Culture [facility] 08/01 16:46 Order name: Social Service Consult [facility] 08/01 18:37 Order name: ABO/RH no charge [facility] 08/01 13:58 Order name: Cath; Complete Time: 15:10 snw 08/01 13:58 Order name: Accucheck; Complete Time: 15:31 snw 08/01 13:58 Order name: Cardiac monitoring; Complete Time: 15:10 snw 08/01 13:58 Order name: EKG - Nurse/Tech; Complete Time: 15:10 snw 08/01 13:58 Order name: IV Saline Lock - Large Bore; Complete Time: 15:31 snw 08/01 13:58 Order name: Labs collected and sent; Complete Time: 15:10 w 08/01 13:58 Order name: O2 Per Protocol; Complete Time: 15:09 snw 08/01 13:58 Order name: O2 Sat Monitoring; Complete Time: 15:09 snw 08/01 13:58 Order name: Urine Dipstick-Ancillary (obtain specimen); Complete Time: 15:10 snw 08/01 13:58 Order name: Mosquera; Complete Time: 15:09 snw 08/01 13:58 Order name: Misc. Order: position pt on side with pillows; Complete Time: 16:33 snw Administered Medications: 14:00 Drug: NS 0.9% 1000 ml Route: IV; Rate: 1 bolus; Site: right antecubital; jl7 15:00 Follow up: Response: No adverse reaction; IV Status: Completed infusion; IV Intake: jl7 1000ml 15:30 Drug: LevaQUIN 500 mg Volume: 100 ml; Route: IVPB; Infused Over: 60 mins; Site: right jl7 antecubital; 16:30 Follow up: Response: No adverse reaction; IV Status: Completed infusion jl7 15:30 Drug: NS 0.9% 1000 ml Route: IV; Rate: 100 ml/hr; Site: right antecubital; jl7 17:27 Follow up: Response: No adverse reaction; IV Status: Infusion continued upon admission jl7 Disposition: 08/02 07:12 Co-signature as Attending Physician, Cecilio Kwan MD. rn Disposition: 08/01/20 16:06 Hospitalization ordered by Derian Yan for Inpatient Admission. Preliminary diagnosis are Urinary tract infection, site not specified, Altered mental status, unspecified. - Bed requested for Telemetry/MedSurg (Inpatient). - Status is Inpatient Admission. jl7 - Condition is Stable. - Problem is an acute exacerbation. - Symptoms have worsened. Signatures: Dispatcher [employer] EDMS Arti Dorsey Shelly, MILK TRUCK DRIVER-C MILK TRUCK DRIVER-Csnw Cecilio Kwan MD MD rn Leal, Jahala, RN RN jl7 Corrections: (The following items were deleted from the chart) 08/01 16:47 16:06 Hospitalization Ordered by Derian Yan DO for Inpatient Admission. Preliminary bd diagnosis is Urinary tract infection, site not specified; Altered mental status, unspecified. Bed requested for Telemetry/MedSurg (Inpatient). Status is Inpatient Admission. Condition is Stable. Problem is an acute exacerbation. Symptoms have worsened. snw 18:45 16:47 08/01/2020 16:06 Hospitalization Ordered by Derian Yan DO for Inpatient jl7 Admission. Preliminary diagnosis is Urinary tract infection, site not specified; Altered mental status, unspecified. Bed requested for Telemetry/MedSurg (Inpatient). Status is Inpatient Admission. Condition is Stable. Problem is an acute exacerbation. Symptoms have worsened. bd
--- NOTE | 2020-08-01 16:07 | ER ---
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 Pt is minimally responsive to pain in triage. 13:40 Initial Sepsis Screen: Does the patient meet any 2 criteria? Systolic BP < 90 mmHg. No. jl7 Patient's initial sepsis screen is negative. Does the patient have a suspected source of infection? No. Patient's initial sepsis screen is negative. Risk Assessment: Do you want to hurt yourself or someone else? Patient reports no desire to harm self or others. Onset of symptoms is unknown. Care prior to arrival: Medication(s) given: Normal saline infusion, 500 mL, IV initiated. 20 GA, in the right antecubital area. Transition of care: patient was received from another setting of care (long-term care facility), [facility]. 13:40 Acuity: RODDY 2 jl7 13:45 Coronavirus screen: Client denies travel out of the [place] in the last 14 days. At this jl7 time, the client does not indicate any symptoms associated with coronavirus-19. Ebola Screen: No symptoms or risks identified at this time. 13:45 Method Of Arrival: EMS: [facility] jl7 Triage Assessment: 13:40 General: Appears in no apparent distress. uncomfortable, ill, slender, Behavior is jl7 unresponsive. Pain: Unable to use pain scale. Patient is unresponsive. EENT: Eyes with exudate noted from left eye Oral mucosa is dry. Neuro: Level of Consciousness is responds to painful stimuli. Oriented to none. Cardiovascular: Patient's skin is warm and dry. Respiratory: Airway is patent Respiratory effort is even, unlabored, shallow, Respiratory pattern is regular, symmetrical. Derm: Skin is dry, Skin is pale, Skin temperature is warm. 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 - Social history:: Smoking status: unknown. Screenin:50 Abuse screen: unable to obtain. Nutritional screening: unable to obtain. Tuberculosis jl7 screening: No symptoms or risk factors identified. Fall Risk No fall in past 12 months (0 pts). Secondary diagnosis (15 points) seizures, IV access (20 points). Ambulatory Aid- None/Bed Rest/Nurse Assist (0 pts). Gait- Weak (10 pts.). Total De La Cruz Fall Scale indicates High Risk Score (45 or more points). Fall prevention measures have been instituted. Side Rails Up X 2 Placed Close to Nursing Station Frequent Obs/Assessments Occuring As available patient and family educated on Fall Prevention Program and Strategies. Assessment: 13:45 General: See triage assessment. jl7 15:45 Reassessment: turned pt to right side, covered with warm blanket. Pt shakes head yes jl7 when asked if comfortable. 16:03 Reassessment: Pt awake and alert, attempting to answer questions. Hx of aphasia, unable jl7 to understand what pt is saying. Dr. Yan at bedside, requesting for medication list. Deena at [facility] contacted, she will fax over medication list at this time. Vital Signs: 13:40 BP 96 / 62; Pulse 79; Resp 13; Temp 97.9; Pulse Ox 96% ; jl7 14:00 BP 79 / 59; Pulse 79; Resp 13; Pulse Ox 96% ; jl7 14:15 BP 105 / 73; Pulse 83; Resp 12; Pulse Ox 96% ; jl7 15:16 BP 116 / 66; Pulse 83; Resp 14; Pulse Ox 96% ; jl7 15:45 BP 107 / 71; Pulse 76; Resp 15; Pulse Ox 96% ; jl7 17:00 BP 87 / 60; Pulse 62; Resp 13 S; Pulse Ox 97% on R/A; jl7 ED Course: 13:40 Arm band placed on right wrist. jl7 13:48 Patient arrived in ED. jl7 13:53 Babs Gerardo FNP-C [facility]. snw 13:53 Cecilio Kwan MD is Attending Physician. snw 14:12 Chest Single View XRAY In Process Unspecified. EDMS 14:46 Triage completed. jl7 14:50 Patient has correct armband on for positive identification. Placed in gown. Bed in low jl7 position. Call light in reach. Side rails up X2. hall monitor on. Pulse ox on. NIBP on. Warm blanket given. 14:50 Initial lab(s) drawn, by me, sent to lab. Urine collected: Mosquera catheter specimen, jl7 cloudy. Mosquera cath inserted, using sterile technique, 16 Fr., by me, balloon inflated, to gravity drainage, urine specimen collected. Maintain EMS IV. Dressing intact. Good blood return noted. Site clean \T\ dry. Gauge \T\ site: [address] ac. 14:59 CT Head Brain wo Cont In Process Unspecified. EDMS 14:59 CT Chest For PE Angio In Process Unspecified. EDMS 15:07 Maverick Nicholson RN is Primary Nurse. jl7 16:05 Derian Yan DO is Hospitalizing Provider. snw 17:27 No provider procedures requiring assistance completed. Patient admitted, IV remains in jl7 place. intact, No redness/swelling at site. Administered Medications: 14:00 Drug: NS 0.9% 1000 ml Route: IV; Rate: 1 bolus; Site: right antecubital; jl7 15:00 Follow up: Response: No adverse reaction; IV Status: Completed infusion; IV Intake: jl7 1000ml 15:30 Drug: LevaQUIN 500 mg Volume: 100 ml; Route: IVPB; Infused Over: 60 mins; Site: right jl7 antecubital; 16:30 Follow up: Response: No adverse reaction; IV Status: Completed infusion jl7 15:30 Drug: NS 0.9% 1000 ml Route: IV; Rate: 100 ml/hr; Site: right antecubital; jl7 17:27 Follow up: Response: No adverse reaction; IV Status: Infusion continued upon admission jl7 Intake: 15:00 IV: 1000ml; Total: 1000ml. jl7 Outcome: 16:06 Decision to Hospitalize by Provider. snw 18:44 Admitted to [facility] by [facility], via stretcher, room 201, with chart, Report jl7 called to ADELFO Chance 18:44 Condition: stable 18:44 Instructed on the need for admit. 18:45 Patient left the ED. jl7 Signatures: Dispatcher [employer] EDMS Babs Gerardo, DRAKE-C MANAGING MEMBER-Csnw Maverick Nicholson, RN RN jl7
--- NOTE | 2020-08-01 16:45 | P.HP ---
Certification for Inpatient Patient admitted to: Inpatient With expected LOS: >2 Midnights Patient will require the following post-hospital care: Other (back to [place]) Practitioner: I am a practitioner with admitting privileges, knowledge of patient current condition, hospital course, and medical plan of care. Services: Services provided to patient in accordance with Admission requirements found in Title 42 Section 412.3 of the Code of Federal Regulations Patient History Date of Service: 08/01/20 Primary Care Provider: [facility] Reason for admission: AMS History of Present Illness: 55-year-old female with history of CVA, contractures, seizure disorder, CAD. Patient comes from the custodial after she was noted to have altered mental status changes. Patient had been more lethargic. There is no mention of fever, chills. Patient with history of UTI. She was hospitalized in June for UTI. Blood pressure was initially low. Patient was given 500 cc bolus en route. When she arrived to the hospital blood pressures were in normal range. CT scan shows no acute changes. Urinalysis was positive for bacteria. White count 11.1, hemoglobin 12.4. Sodium 143, potassium 3.7. GFR greater than 90. CPK elevated at 928. Lactic acid negative. Pro calcitonin negative. Troponin negative. No evidence of pneumonia noted. Some atelectasis noted on CT scan. Patient was given antibiotic therapy in the emergency room. Patient admitted for further evaluation and treatment. When I saw the patient ER, she was less lethargic. She was able to follow commands. Allergies aspirin Allergy (Unknown, Verified 06/14/20 21:51) Unknown Penicillins Allergy (Verified 06/14/20 21:51) Unknown Home medications list reviewed: Yes Home Medications: Acetaminophen 650 mg PO TID PRN MDD 3 grams 06/14/20 Acetaminophen [Tylenol Extra Strength] 1 tab PO DAILY 06/14/20 Atorvastatin Calcium [Lipitor*] 40 mg PO BEDTIME 06/14/20 Baclofen [Lioresal] 20 mg PO TID 06/14/20 Buspirone HCl [Buspar] 20 mg PO BID 06/14/20 Cholecalciferol (Vitamin D3) [Vitamin D3] 1,000 unit PO DAILY 06/14/20 Clopidogrel Bisulfate [Plavix*] 1 tab PO DAILY 06/14/20 Dextran 70/Hypromellose [Artificial Tears Drops] 15 ml OP QID 06/14/20 Divalproex Sodium [Depakote ER] 1,000 mg PO BID 06/14/20 Docusate Sodium 100 mg PO BID 06/14/20 Fluticasone [Flonase 50MCG Nasal [place]*] 2 sprays IH BID 06/14/20 Gabapentin 800 mg PO BID 06/14/20 Loratadine [Claritin*] 10 mg PO DAILY 06/14/20 Melatonin 5 mg PO BEDTIME 06/14/20 Risperidone [Risperdal] 2 mg PO BID 06/14/20 levETIRAcetam [Keppra*] 1,000 mg PO Q12H 06/14/20 Medihoney [Medihoney Woundcare Gel*] 1 appl TOP DAILY tube 06/20/20 Smz./Tmp. [Bactrim Ds 800 MG/160 MG] 1 tab PO BID 7 Days #14 tab 06/20/20 - Past Medical/Surgical History Diabetic: No -: Schizophrenia -: History of CVA -: 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 -: CAD -: MR Past Surgical History: Unable to obtain Psychosocial/ Personal History: Patient from custodial - Family History Family History: Reviewed- Non-Contributory - Social History Alcohol use: No CD- Drugs: No Caffeine use: No Place of Residence: Shelter Review of Systems General: As per HPI Eyes: Unremarkable ENT: Unremarkable Respiratory: Unremarkable Cardiovascular: Unremarkable Gastrointestinal: Unremarkable Genitourinary: Unremarkable Musculoskeletal: Unremarkable Integumentary: Unremarkable Neurological: As per HPI Lymphatics: Unremarkable Physical Examination - Physical Exam General: Alert, In no apparent distress, Cooperative HEENT: Atraumatic, Other (Dry mucous membranes noted) Neck: Supple Respiratory: Clear to auscultation bilaterally Cardiovascular: Normal pulses, Regular rate/rhythm Gastrointestinal: Normal bowel sounds, Soft and benign, Non-distended, No masses, No rebound, No guarding Musculoskeletal: Contractures (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), Other (Muscle wasting to the upper and lower extremities.) Integumentary: Other (Mild pressure sores to the knee medially) Neurological: Normal affect, Abnormal strength (To the lower extremity) - Studies Laboratory Data (last 24 hrs) 08/01/20 14:37: PT 12.9 H, INR 1.10, APTT 32.3 08/01/20 14:37: WBC 11.1 H, Hgb 12.4, Hct 38.3, Plt Count 227 08/01/20 14:37: Sodium 143, Potassium 3.7, BUN 10, Creatinine 0.64, Glucose 76, Total Bilirubin 0.3, AST 29, ALT 15, Alkaline Phosphatase 60, Amylase 25, Lipase 47 L Assessment and Plan - Plan Impression: Altered mental status likely toxic encephalopathy related to UTI and dehydration Elevated CPK is possibly related to seizures with history of seizure disorder versus rhabdomyolysis CAD Schizophrenia 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 Will continue with IV fluid hydration. Will start ceftriaxone. Previous urine culture reviewed. Anticipate altered mental status related to UTI. Other possibility may be related to seizure disorder. Will consult neurology for further recommendation. Will order EEG to further evaluate. Anticipate improvement over the next 48-72 hr. Elevated CPK is possibly related to seizures with history of seizure disorder versus rhabdomyolysis: Continue IV fluid hydration. Will need to continue her medications from the custodial including Keppra and Depakote. Will need to obtain other medications. CAD: Continue Plavix Schizophrenia: Restart home medication. 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 Moderate protein malnutrition: Will evaluate nutritional status and further address. Pressure source of the knees medially: Will need to prevent further changes. Discharge Plan: Shelter Plan to discharge in: 72 Hours - Advance Directives Does patient have a Living Will: No Does patient have a Durable POA for Healthcare: No - Code Status/Comfort Care Code Status Assessed: Yes (Patient is full code per custodial) Time Spent Managing Pts Care (In Minutes): 55
[2020-08-01] MEDS ORDERED: ONDANSETRON 4 MG/2 ML VIAL IV PRN (18:01)
[2020-08-01] MEDS: D5 0.9 NS 1,000 ML IV SCH (18:34)
[2020-08-01 19:35] VITALS: BMI 20.5
[2020-08-01] MEDS: ENOXAPARIN 40 MG/0.4 ML SQ SCH (22:21)
[2020-08-01] MEDS: CEFTRIAXONE/SWI 1gm 1 GM/10 ML SYR IVP SCH (22:21)
[2020-08-01] MEDS: RISPERIDONE 1 MG TABLET PO SCH (22:22)
[2020-08-01] MEDS: levETIRAcetam 500 MG TAB PO SCH (22:22)
[2020-08-01] MEDS: BACLOFEN 10 MG TAB PO SCH (22:22)
[2020-08-01 22:33] LABS: CKMB Creatine Kinase MB 4.3 ng/mL (0.3-3.6); Troponin I < 0.02 ng/mL (0.0-0.045)
[2020-08-01] MEDS: DIVALPROEX DR 500MG TAB PO SCH (22:51)
[2020-08-01 23:08] LABS: Creatine Phosphokinase 1022 U/L (26-192)
[2020-08-02] MEDS ORDERED: KCL 20 MEQ/100 mL IVPB 20 MEQ/100 ML BAG IV SCH (02:00)
[2020-08-02 04:47] LABS: Absolute Lymphocytes (CBC) 2.5 K/uL (0.7-4.9); Basophils % 0.4 % (0-1.3); Hematocrit 35.5 % (36.0-45.0); Lymphocytes % 35.5 % (15.3-44.8); MPV 9.6 fL (7.6-11.3); RBC Red Blood Cell Count 3.53 M/uL (3.86-4.86)
[2020-08-02 05:08] LABS: BUN Blood Urea Nitrogen 9 mg/dL (7-18); Bicarbonate 30 mmol/L (21-32); CKMB Creatine Kinase MB 3.7 ng/mL (0.3-3.6); Creatine Phosphokinase 894 U/L (26-192); Glucose Level 146 mg/dL (74-106); Magnesium 1.9 mg/dL (1.8-2.4); Sodium Level 144 mmol/L (136-145); Troponin I < 0.02 ng/mL (0.0-0.045)
[2020-08-02] MEDS: D5 0.9 NS 1,000 ML IV SCH (06:08)
[2020-08-02] MEDS: CLOPIDOGREL 75 MG TABLET PO SCH (09:08)
[2020-08-02] MEDS: CEFTRIAXONE/SWI 1gm 1 GM/10 ML SYR IVP SCH (09:08)
[2020-08-02] MEDS: DIVALPROEX DR 500MG TAB PO SCH ×2 (09:08→20:46)
[2020-08-02] MEDS: BACLOFEN 10 MG TAB PO SCH ×3 (09:08→20:46)
[2020-08-02] MEDS: levETIRAcetam 500 MG TAB PO SCH ×2 (09:08→20:46)
[2020-08-02] MEDS: RISPERIDONE 1 MG TABLET PO SCH ×2 (09:08→20:46)
[2020-08-02] MEDS: ENOXAPARIN 40 MG/0.4 ML SQ SCH (09:09)
[2020-08-02] MEDS: ACETAMINOPHEN 500 MG TAB PO PRN ×2 (10:57→20:46)
--- NOTE | 2020-08-02 12:11 | P.PN ---
Subjective Date of Service: 08/02/20 Primary Care Provider: Ernesto RAZO Chief Complaint: AMS Subjective: Improving, Doing well Physical Examination - Vital Signs Temperature: 98.6 F Blood Pressure: 119/58 Pulse: 120 Respirations: 16 Pulse Ox (%): 94 - Physical Exam General: Alert, Cooperative HEENT: Atraumatic Neck: Supple Respiratory: Clear to auscultation bilaterally, Normal air movement Cardiovascular: Normal pulses, Regular rate/rhythm Gastrointestinal: No masses, No rebound, No guarding Musculoskeletal: Contractures (To the lower extremity) Neurological: Normal affect, Abnormal speech (Patient with prior difficulty with speech), Abnormal strength (Patient with decreased strength to the extremities. Contractures noted.) - Studies Laboratory Data (last 24 hrs) 08/01/20 14:37: PT 12.9 H, INR 1.10, APTT 32.3 08/01/20 14:37: WBC 11.1 H, Hgb 12.4, Hct 38.3, Plt Count 227 08/01/20 14:37: Sodium 143, Potassium 3.7, BUN 10, Creatinine 0.64, Glucose 76, Total Bilirubin 0.3, AST 29, ALT 15, Alkaline Phosphatase 60, Amylase 25, Lipase 47 L Microbiology Data (last 24 hrs): 08/01/20 15:44 Blood - Blood Anaerobic Blood Culture - Final Medications List Reviewed: Yes Assessment & Plan Discharge Plan: [facility] Plan to discharge in: 48 Hours Physician Review Additional Text: Impression: Altered mental status likely toxic encephalopathy related to UTI and dehydration, urine culture shows Gram negative rods Elevated CPK is possibly related to seizures with history of seizure disorder versus rhabdomyolysis CAD Schizophrenia 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 Continue IV Rocephin. Await for blood in urine culture results. Patient appears improved. Will need to obtain and verify home medication to reconcile. EEG ordered. Will discuss further with Neurology. Continue with prior anti seizure medications. Anticipate improvement over the next 48 hr. Elevated CPK is possibly related to seizures with history of seizure disorder versus rhabdomyolysis: Continue IV fluid hydration. Will need to continue her medications from the shelter including Keppra and Depakote. Will need to obtain other medications. CAD: Continue Plavix Schizophrenia: Continue home medication. 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 Moderate protein malnutrition: Will evaluate nutritional status and further address. Pressure source of the knees medially: Will need to prevent further changes. Skin prevention provided. Time Spent Managing Pts Care (In Minutes): 55
[2020-08-02] MEDS: D5 0.45 NS 1,000 ML IV SCH ×2 (14:11→23:00)
[2020-08-03] MEDS: D5 0.45 NS 1,000 ML IV SCH ×4 (01:11→21:35)
[2020-08-03] MEDS: ACETAMINOPHEN 500 MG TAB PO PRN ×3 (01:13→20:53)
[2020-08-03 06:00] LABS: Absolute Lymphocytes (CBC) 3.1 K/uL (0.7-4.9); Basophils % 0.3 % (0-1.3); Hematocrit 36.2 % (36.0-45.0); Lymphocytes % 47.1 % (15.3-44.8); MPV 9.2 fL (7.6-11.3); RBC Red Blood Cell Count 3.62 M/uL (3.86-4.86)
[2020-08-03 06:41] LABS: BUN Blood Urea Nitrogen 3 mg/dL (7-18); Bicarbonate 28 mmol/L (21-32); Glucose Level 128 mg/dL (74-106); Magnesium 1.9 mg/dL (1.8-2.4); Potassium 3.4 mmol/L (3.5-5.1); Sodium Level 146 mmol/L (136-145)
[2020-08-03] MEDS ORDERED: POTASSIUM 25 MEQ EFFERV TAB PO ONE (08:00)
[2020-08-03] MEDS: DIVALPROEX DR 500MG TAB PO SCH ×2 (08:44→20:52)
[2020-08-03] MEDS: levETIRAcetam 500 MG TAB PO SCH ×2 (08:44→20:52)
[2020-08-03] MEDS: CEFTRIAXONE/SWI 1gm 1 GM/10 ML SYR IVP SCH (08:44)
[2020-08-03] MEDS: RISPERIDONE 1 MG TABLET PO SCH ×2 (08:44→20:52)
[2020-08-03] MEDS: BACLOFEN 10 MG TAB PO SCH ×3 (08:44→20:52)
[2020-08-03] MEDS: CLOPIDOGREL 75 MG TABLET PO SCH (08:44)
[2020-08-03] MEDS: ENOXAPARIN 40 MG/0.4 ML SQ SCH (08:45)
[2020-08-03 09:34] LABS: Blood Morphology Comment NOT SEEN (NOT SEEN); Platelet Estimate ADEQ
[2020-08-03] MEDS: Meropenem 1,000 MG in NA CHLORIDE 0.9% 100 ML IV SCH (13:06)
--- NOTE | 2020-08-03 18:06 | P.PN ---
Subjective Date of Service: 08/03/20 Primary Care Provider: Ernesto Durbin [place] Chief Complaint: AMS Subjective: Improving Physical Examination - Vital Signs Temperature: 98.3 F Blood Pressure: 99/53 Pulse: 90 Respirations: 16 Pulse Ox (%): 95 - Physical Exam General: Alert HEENT: Atraumatic Neck: Supple Respiratory: Clear to auscultation bilaterally, Normal air movement Cardiovascular: Normal pulses, Regular rate/rhythm Gastrointestinal: Normal bowel sounds Musculoskeletal: Contractures - Studies Microbiology Data (last 24 hrs): 08/01/20 15:12 Clean Catch Urine [place] Count - Final >100,000 CFU/ML. 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 PICC line ordered. Will arrange for meropenem at the alf. Anticipate improvement over the next 24 hr. Likely back to the alf tomorrow. Elevated CPK is possibly related to seizures with history of seizure disorder versus rhabdomyolysis: Continue IV fluid hydration. Will need to continue her medications from the alf including Keppra and Depakote. Will need to obtain other medications. CAD: Continue Plavix Schizophrenia: Continue home medication. 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 Moderate protein malnutrition: Will evaluate nutritional status and further address. Pressure source of the knees medially: Will need to prevent further changes. Skin prevention provided. Time Spent Managing Pts Care (In Minutes): 55
--- NOTE | 2020-08-03 22:04 | CON ---
Reason For Consultation: Consultation called because of altered mental status. History Of Present Illness: Ms. Guzman is a 55-year-old patient with history of stroke with contractur es, seizures, coronary artery disease, who comes in with more confusion. The patient has been lethar gic and less interactive. Emergency room evaluation revealed bacteria in the urine. A subsequent cu lture showed E. coli ESBL for which she is on antibiotics and will likely require long-term antibioti cs. The patient has been slow to respond, but does follow simple commands. She does have very poor articulation following her stroke and has difficulty getting her words out. Her head CT scan showed no acute ischemic or hemorrhagic change. However, the study was remarkable for posterior left fronta l chronic ischemic encephalomalacia, extensive bilateral subfrontal white matter hypodensities, subfr ontal encephalomalacia from likely remote trauma and the study was not substantially different from o ne done on June 14, 2020. The study was done on August 01, 2020. Past Medical History: As indicated. Schizophrenia and again contractures of the lower extremities f ollowing strokes and head injury. Allergies: ASPIRIN AND PENICILLIN. Medications At Home: Acetaminophen 650 mg 3 times daily for moderate pain, Lipitor 40 mg at bedtime, baclofen 10 mg 3 times a day, BuSpar 20 mg twice daily, vitamin D3 1000 international units daily, P lavix 75 mg daily, Artificial Tears 1 drop 4 times daily in each eye, Depakote extended release 1000 mg twice daily, Flonase 2 sprays twice daily, gabapentin 800 mg twice daily, Claritin 10 mg daily, me latonin 5 mg at bedtime, Risperdal 2 mg twice daily, Keppra 1000 mg twice daily, Medihoney apply to w ound daily, and Bactrim DS 800/160 twice daily. Family History: Noncontributory. Review of Systems: Not able to give a coherent review of systems, although from reviewing the chart the time that she ca me in, there were no acute respiratory issues. No issues with skin or integument and she did have si gnificant weakness diffusely and is ambulating. Physical Examination: Vital Signs: Blood pressure 99 ranging up to 127/53-77, pulse 90-110, respiratory rate 16-18, temper ature 98.3, oxygen saturation 95%. Weight 131 pounds, height 5 feet 7 inches. General: Ms. Guzman is resting in bed. She is very difficult to comprehend. She does follow simple c ommands with repeated instructions. She has good air movement. Abdomen: Soft. Some contractures in the extremities in the lower more than upper extremities. Neurological: Cranial nerves show no focal deficits, but poor labial, lingual, and guttural sounds. She is diffusely weak in both upper and lower extremities and has difficulty moving extremities due to contractures. She is hyperreflexic in all extremities and not ambulating. Laboratory Studies: Complete blood count with differential showed WBC 6.5, hemoglobin 11.8. INR 1.1 . Her creatine kinase was 1022 on the 01 of August and 894 on the 02 of August. It is possibl e that the patient may have had a seizure that resulted in the elevated creatine kinase and that is n ow trending back down and she did have a normal lactic acid level of 1.1 and normal procalcitonin lev el of 0.06. Assessment: Ms. Guzman is a 55-year-old patient with head trauma and significant loss of brain with po or expression, difficulty with comprehension, contractures in the extremities likely related to lower extremity more than upper related to frontal trauma. She does have extended-spectrum beta-lactamase urinary tract infection and may require long-term antibiotics. At this point, she should be in a fa cility that can provide long-term antibiotics, will require 24-hour supervision and care. She should continue with her antiepileptic medications. No evidence she has had seizures while in hospital and it is possible she may have had one prior to coming to the hospital and resulted in the muscle tissue breakdown. Otherwise, continued stroke risk reduction medications including Plavix. CADE/STAN Voice ID: [id number] Report ID: [id number]
[2020-08-04] MEDS: Meropenem 1,000 MG in NA CHLORIDE 0.9% 100 ML IV SCH ×2 (01:01→08:06)
[2020-08-04] MEDS: ACETAMINOPHEN 500 MG TAB PO PRN ×2 (01:53→08:14)
[2020-08-04 04:33] LABS: Absolute Lymphocytes (CBC) 2.6 K/uL (0.7-4.9); Basophils % 0.7 % (0-1.3); Hematocrit 36.3 % (36.0-45.0); Lymphocytes % 40.2 % (15.3-44.8); MPV 9.1 fL (7.6-11.3); RBC Red Blood Cell Count 3.66 M/uL (3.86-4.86)
[2020-08-04 04:57] LABS: BUN Blood Urea Nitrogen 4 mg/dL (7-18); Bicarbonate 30 mmol/L (21-32); Glucose Level 117 mg/dL (74-106); Magnesium 1.9 mg/dL (1.8-2.4); Potassium 3.7 mmol/L (3.5-5.1); Sodium Level 142 mmol/L (136-145)
[2020-08-04] MEDS: D5 0.45 NS 1,000 ML IV SCH (05:00)
[2020-08-04] MEDS ORDERED: POTASSIUM 25 MEQ EFFERV TAB PO ONE (06:00)
--- NOTE | 2020-08-04 07:51 | P.DS ---
Admission Date: 08/01/20 Discharge Date: 08/04/20 Primary Care Provider: [facility] Disposition: TRANSFER TO CARE HOME Discharge Condition: GOOD Reason for Admission: AMS Consultations: Neurology-Dr. 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 Patient comes from the longterm after she was noted to have altered mental status changes. Patient had been more lethargic. There is no mention of fever, chills. Patient with history of UTI. She was hospitalized in June for UTI. Blood pressure was initially low. Patient was given 500 cc bolus en route. When she arrived to the hospital blood pressures were in normal range. CT scan shows no acute changes. Urinalysis was positive for bacteria. White count 11.1, hemoglobin 12.4. Sodium 143, potassium 3.7. GFR greater than 90. CPK elevated at 928. Lactic acid negative. Pro calcitonin negative. Troponin negative. No evidence of pneumonia noted. Some atelectasis noted on CT scan. Patient was given antibiotic therapy in the emergency room. Patient admitted for further evaluation and treatment. When I saw the patient ER, she was less lethargic. She was able to follow commands. Hospital Course: Patient presented with altered mental status secondary to toxic encephalopathy related to UTI and dehydration. Patient was started on antibiotic therapy. Patient found to have urine culture positive for E coli-ESBL. This required a PICC line and IV antibiotic therapy at discharge. Arrangements have been made to continue IV meropenem 1000 mg 1 pill twice daily for 7 days at the longterm. Recommend to recheck urine culture at that time. If negative PICC line and antibiotics can be discontinued. Recommend to continue UTI prevention. Education to longterm will be provided. Patient found to have elevated CPK. Patient may have had a seizure prior to admission. This may be related to decrease threshold related to UTI. Patient back on her normal regiment of medication. No seizures noted. Patient was seen by Neurology. No further intervention required. At discharge she will continue with Depakote ER 1000 mg 1 pill twice daily and Keppra 1000 mg 1 pill twice daily. Recommend to monitor seizures at the longterm. Seizure precautions should be followed. Patient may follow up with neurology as an outpatient. Patient with CAD. At discharge she will continue with Plavix 75 mg daily and Lipitor 40 mg daily. Patient with schizophrenia. Patient takes Depakote ER 1000 mg 1 pill twice daily, Buspar 20 mg one pill twice daily, melatonin 5 mg daily, and Risperdal 2 mg 1 pill twice daily. Recommend follow up with psychiatry as an outpatient to further address. Patient with prior frontal head trauma now with chronic poor expression, difficulty with comprehension and contractures. This appears stable. Skin tear prevention will need to be enforced at the longterm. Patient takes baclofen for muscle spasm related to contractures. Medication has been decreased to baclofen 10 mg 1 pill 3 times a day. This may need to be further adjusted at the longterm. Recommend to hold medication if with increase sedation. Vital Signs/Physical Exam: Temp Pulse Resp BP Pulse Ox 97.1 F 98 H 14 120/67 98 08/04/20 04:00 08/04/20 04:00 08/04/20 04:00 08/04/20 04:00 08/04/20 04:00 General: Alert, In no apparent distress, Cooperative, Other (Patient more talkative today.) HEENT: Atraumatic Neck: Supple Respiratory: Clear to auscultation bilaterally, Normal air movement Cardiovascular: Normal pulses, Regular rate/rhythm Gastrointestinal: Normal bowel sounds, No masses, No rebound, No guarding Musculoskeletal: Contractures (Contractures noted to the lower extremities) Neurological: Other (Patient more alert. Muscle wasting to the upper lower extremities noted.) Laboratory Data at Discharge: WBC 6.4 K/uL (4.3-10.9) 08/04/20 04:04 Hgb 11.9 g/dL (12.0-15.0) L 08/04/20 04:04 Hct 36.3 % (36.0-45.0) 08/04/20 04:04 Plt Count 232 K/uL (152-406) 08/04/20 04:04 PT 12.9 SECONDS (9.5-12.5) H 08/01/20 14:37 INR 1.10 08/01/20 14:37 APTT 32.3 SECONDS (24.3-36.9) 08/01/20 14:37 Sodium 142 mmol/L (136-145) 08/04/20 04:04 Potassium 3.7 mmol/L (3.5-5.1) 08/04/20 04:04 BUN 4 mg/dL (7-18) L 08/04/20 04:04 Creatinine 0.39 mg/dL (0.55-1.3) L 08/04/20 04:04 Glucose 117 mg/dL (74-106) H 08/04/20 04:04 Magnesium 1.9 mg/dL (1.8-2.4) 08/04/20 04:04 Total Bilirubin 0.3 mg/dL (0.2-1.0) 08/01/20 14:37 AST 29 U/L (15-37) 08/01/20 14:37 ALT 15 U/L (12-78) 08/01/20 14:37 Alkaline Phosphatase 60 U/L (45-117) 08/01/20 14:37 Troponin I < 0.02 ng/mL (0.0-0.045) 08/02/20 04:07 Amylase 25 U/L (25-115) 08/01/20 14:37 Lipase 47 U/L (73-393) L 08/01/20 14:37 Home Medications: Acetaminophen 650 mg PO TID PRN MDD 3 grams 06/14/20 Acetaminophen [Tylenol Extra Strength] 1 tab PO DAILY 06/14/20 Atorvastatin Calcium [Lipitor*] 40 mg PO BEDTIME 06/14/20 Buspirone HCl [Buspar] 20 mg PO BID 06/14/20 Cholecalciferol (Vitamin D3) [Vitamin D3] 1,000 unit PO DAILY 06/14/20 Clopidogrel Bisulfate [Plavix*] 1 tab PO DAILY 06/14/20 Dextran 70/Hypromellose [Artificial Tears Drops] 15 ml OP QID 06/14/20 Divalproex Sodium [Depakote ER] 1,000 mg PO BID 06/14/20 Docusate Sodium 100 mg PO BID 06/14/20 Fluticasone [Flonase 50MCG Nasal [place]*] 2 sprays IH BID 06/14/20 Loratadine [Claritin*] 10 mg PO DAILY 06/14/20 Melatonin 5 mg PO BEDTIME 06/14/20 Risperidone [Risperdal] 2 mg PO BID 06/14/20 levETIRAcetam [Keppra*] 1,000 mg PO Q12H 06/14/20 Baclofen [Lioresal*] 10 mg PO TID #90 tab 08/04/20 New Medications: Baclofen [Lioresal*] 10 mg PO TID #90 tab Patient Discharge Instructions: 1. Patient to return to longterm with continued IV antibiotic therapy. 2. Patient presented with altered mental status secondary to toxic encephalopathy related to UTI and dehydration. Patient was started on antibiotic therapy. Patient found to have urine culture positive for E coli-ESBL. This required a PICC line and IV antibiotic therapy at discharge. Arrangements have been made to continue IV meropenem 1000 mg 1 pill twice daily for 7 days at the longterm. Recommend to recheck urine culture at that time. If negative PICC line and antibiotics can be discontinued. Recommend to continue UTI prevention. Education to longterm will be provided. 3. Patient found to have elevated CPK. Patient may have had a seizure prior to admission. This may be related to decrease threshold related to UTI. Patient back on her normal regiment of medication. No seizures noted. Patient was seen by Neurology. No further intervention required. At discharge she will continue with Depakote ER 1000 mg 1 pill twice daily and Keppra 1000 mg 1 pill twice daily. Recommend to monitor seizures at the longterm. Seizure precautions should be followed. Patient may follow up with neurology as an outpatient. 4. Patient with CAD. At discharge she will continue with Plavix 75 mg daily and Lipitor 40 mg daily. 5. Patient with schizophrenia. Patient takes Depakote ER 1000 mg 1 pill twice daily, Buspar 20 mg one pill twice daily, melatonin 5 mg daily, and Risperdal 2 mg 1 pill twice daily. Recommend follow up with psychiatry as an outpatient to further address. 6. Patient with prior frontal head trauma now with chronic poor expression, difficulty with comprehension and contractures. This appears stable. Skin tear prevention will need to be enforced at the longterm. Patient takes baclofen for muscle spasm related to contractures. Medication has been decreased to baclofen 10 mg 1 pill 3 times a day. This may need to be further adjusted at the longterm. Recommend to hold medication if with increase sedation. Diet: mechanical soft Activity: Fall precautions Time spent managing pt's care (in minutes): 55
[2020-08-04] MEDS: RISPERIDONE 1 MG TABLET PO SCH (08:06)
[2020-08-04] MEDS: DIVALPROEX DR 500MG TAB PO SCH (08:06)
[2020-08-04] MEDS: levETIRAcetam 500 MG TAB PO SCH (08:06)
[2020-08-04] MEDS: BACLOFEN 10 MG TAB PO SCH (08:06)
[2020-08-04] MEDS: ENOXAPARIN 40 MG/0.4 ML SQ SCH (08:07)
[2020-08-04] MEDS: CLOPIDOGREL 75 MG TABLET PO SCH (08:09)
--- NOTE | 2020-08-04 08:49 | RAD REPORT ---
EXAM DESCRIPTION: RAD - Chest Single View - 08/04/2020 1:09 am CLINICAL HISTORY: picc line insertion verification COMPARISON: Chest Single View dated 08/01/2020; Chest Single View dated 06/14/2020; Chest Single View dated 09/15/2017; Chest Single View dated 03/30/2017 FINDINGS: Portable chest was obtained following placement of a right upper extremity PICC line. The catheter tip projects over the SVC.
[2020-08-04 08:50] VITALS: O2SAT 94
[2020-08-04 17:34] VITALS: BP 104/58; TEMP 97.7
== END 2020-08-04 13:14 | DRG 689 ==
LOC: ER 13:43 → ERHOLD 16:31 → UNDOADMIN 17:20 → 2ND 17:58
PROVIDERS: ADMIT Family Medicine; ATTEND Family Medicine
PROC: 02HV33Z Insertion of Infusion Device into Superior Vena Cava, Percutaneous Approach (ICD-10-PCS; principal; 2020-08-04)
DX: N39.0 Urinary tract infection, site not specified (principal); G92 Toxic encephalopathy; M62.82 Rhabdomyolysis; E44.0 Moderate protein-calorie malnutrition; Z16.12 Extended spectrum beta lactamase (ESBL) resistance; E86.0 Dehydration; F20.9 Schizophrenia, unspecified; I25.10 Atherosclerotic heart disease of native coronary artery without angina pectoris; B96.20 Unspecified Escherichia coli [E. coli] as the cause of diseases classified elsewhere; S09.90XA Unspecified injury of head, initial encounter; L89.899 Pressure ulcer of other site, unspecified stage; Z86.73 Personal history of transient ischemic attack (TIA), and cerebral infarction without residual deficits; Z88.0 Allergy status to penicillin; Z88.8 Allergy status to other drugs, medicaments and biological substances; Z79.02 Long term (current) use of antithrombotics/antiplatelets; Z79.899 Other long term (current) drug therapy; Z68.20 Body mass index [BMI] 20.0-20.9, adult; Z20.828 Contact with and (suspected) exposure to other viral communicable diseases
CPT/HCPCS: 36415; 36569; 51702; 70450; 71045; 71275; 80048; 80076; 81003; 81015; 82140; 82150; 82550; 82553; 82565; 82805; 82947; 83605; 83690; 83735; 84132; 84145; 84443; 84484; 85025; 85610; 85730; 86850; 86900; 86901; 87040; 87077; 87086; 87088; 87186; 93005; 95816; 96361; 96365; 99285; J0696; J1650; J2185; J3480; J7030; J7042; J7799; Q9967; U0002

== ENCOUNTER 2020-11-25 09:47 | Emergency (ER) | payer OTHER ==
--- OUTSIDE RECORDS SUMMARY | 2020-11-25 09:49 | XMS REPORT | Clinical Summary ---
:1965 Author Organization [facility] Address [address] [place] [address] Care Team Providers Name Role Phone Sharptamara Primary Care Provider Allergies Active Allergy Reactions Severity Noted Date Comments Aspirin Nausea And Vomiting 09/16/2017 Penicillins Rash Low 09/16/2017 Medications Medication Sig Dispensed Refills Start Date End Date Status baclofen (LIORESAL) 20 MG Take 20 mg by 0 Active tabletIndications: muscle mouth 3 (three) spasticity of spinal times daily. origin acetaminophen (TYLENOL) Take 650 mg by 0 Active 325 MG tabletIndications: mouth 3 (three) pain times daily. benztropine (COGENTIN) Take 0.5 mg by 0 Active 0.5 MG tabletIndications: mouth 2 (two) extrapyramidal disease times daily. divalproex (DEPAKOTE) 250 Take 500 mg by [...] Active 750 MG tabletIndications: mouth 2 (two) partial epilepsy times daily. treatment adjunct clopidogrel (PLAVIX) 75 Take 75 mg by 0 Active mg tabletIndications: mouth daily. cerebral thromboembolism prevention atorvastatin (LIPITOR) 40 Take 40 mg by 0 Active MG tabletIndications: mouth daily. prevention of cerebrovascular accident cholecalciferol (VITAMIN Take 1,000 0 Active D3) 1,000 unit Units by mouth tabletIndications: daily. vitamin D deficiency Active Problems Problem Noted Date Functional quadriplegia 10/01/2017 Moderate protein-calorie malnutrition 10/01/2017 Nonintractable generalized idiopathic epilepsy without status epilepticus 09/16/2017 Leukocytosis 09/16/2017 Encephalopathy acute 09/15/2017 Social History Tobacco Use Types Packs/Day Years Used Date Never Assessed Sex Assigned at Date Recorded Not on file Last Filed Vital Signs Not on file Plan of Treatment Not on file Results Not on fileafter 11/25/2019 Advance Directives For more information, please contact: [phone] Code Status Date Activated Date Inactivated Comments Full Code 09/15/2017 11:20 PM 09/18/2017 7:49 PM This code status was determined by: Patient
--- OUTSIDE RECORDS SUMMARY | 2020-11-25 09:50 | XMS REPORT | Continuity of Care Document ---
:1965 Author Organization [facility] t Address 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 0-31 Catina kes - [place] ia 00:00: Medical 00 [place] Moderate Moderate Disease [facility]12 [facility] 00 [place] Encephalop Encephalop Disease Active 2016-[address] athy acute athy acute 0-15 Catina kes - 00:00: Medical 00 Center Allergies, Adverse Reactions, Alerts Allergy Allergy Status Severity Reaction(s) Onset Inactive Treating Comm ents Source Name Type Date Date Clinician Aspirin Propensi Active Nausea And 2016-[address] [facility] [address] [facility] to Vomiting 0-16 [facility] - adverse 00:00: Medical reaction 00 [place] Penicill Propensi Active Rash 2016-[address] [facility] ty to 0-16 [facility] - adverse 00:00: Medical reaction 00 [place] Social History Social Habit Start Date Stop Date Quantity Comments Source Sex Assigned At [facility] Medications Ordered Filled Start Stop Current Ordering Indication Dosage Frequency Signature Comments Components Source Medication Medication Date Date Medication? Clinician (SIG) Name Name baclofen 2016-12 Yes muscle 20mg [id number] Take [address] [facility] (LIORESAL) 0-18 spasticity [id number] by mouth 3 [facility] - 20 MG 17:49: of spinal 3D (three) Medi david tablet 11 origin times Center daily. acetaminoph 2016-12 Yes pain 650mg Q.[id number] Take [address] en 0-18 [id number] mg by [facility] - (TYLENOL) 17:49: 3D mouth 3 Medic al 325 MG 11 (three) Center tablet times daily. benztropine 2016-12 Yes extrapyrami .5mg Q.5D Take 0.[address] [facility] (COGENTIN) 0-18 huy disease mg by L ukes - 0.5 MG 17:49: mouth 2 Medical tablet 11 (two) Center times daily. divalproex 2016-12 Yes epilepsy 500mg Q.[id number] Take [address] (DEPAKOTE) 0-18 [id number] mg by Catina kes - 250 MG EC 17:49: 3D mouth 3 Medic al tablet 11 (three) Center times daily. docusate 2016-12 Yes 100mg Q.5D Take [address] [facility] [address] sodium 0-18 mg by [facility] - (COLACE) 17:49: mouth 2 Medica l 100 MG 11 (two) Center capsule times daily. gabapentin 2016-12 Yes essential 800mg Q.5D Take [address] (NEURONTIN) 0-18 tremor mg by [facility] - 800 MG 17:49: mouth 2 Medical tablet 11 (two) Center times daily. levETIRAcet 2016-12 Yes partial 750mg Q.5D Take [address] [address] am (KEPPRA) 0-18 epilepsy mg by [place] es - 750 MG 17:49: treatment mouth 2 Med ical tablet 11 adjunct (two) Center times daily. clopidogrel 2016-12 Yes cerebral 75mg QD Take [address] [facility] (PLAVIX) 75 0-18 thromboembo by mouth [facility] - mg tablet 17:49: lism daily. Medica l 11 prevention Center atorvastati 2016-12 Yes prevention 40mg QD Take [address] n (LIPITOR) 0-18 of by mouth Luke s - 40 MG 17:49: cerebrovasc daily. Med ical tablet 11 [facility] accident cholecalcif 2016-12 Yes vitamin D 1000U QD Take 1,[address] manuel 0-18 deficiency Units by [place] - (VITAMIN 17:49: mouth Medical D3) 1,000 11 daily. Center unit tablet Procedures This patient has no known procedures. Results Test Description Test Time Test Comments Results Result Comments Source BLOOD CULTURE 2017-09-21 11:01:00 Test Item Value Reference Range Interpretation Comme nts CULTURE (BEAKER) (test code = 1095) No growth in 5 days BLOOD [id number] 11:01:00 Test Item Value Reference Range Interpretation Comments CULTURE (BEAKER) (test No growth in 5 days code = 1095) URINE [id number] 11:15:00 Test Item Value Reference Range Interpretation Comments CULTURE (BEAKER) (test code = 1095) No growth [id number] 08:30:00 Test Item Value Reference Range Interpretation Comments AMMONIA (BEAKER) (test code = 348) 69 mol/L 18-72 CBC W/PLT COUNT & AUTO [id number] 07:44:00 Test Item Value Reference Range Interpretation [...] GRANULOCYTES-RELATIVE PERCENT (BEAKER) (test code = 2801) [id number] 07:09:00 Test Item Value Reference Range Interpretation Comments MAGNESIUM (BEAKER) (test code = 1.7 mg/dL 1.6-2.6 627) BASIC METABOLIC [id number] 07:09:00 Test Item Value Reference Range Interpretation [...] FOR DIALYSIS PATIEN TS. VALPROIC ACID LEVEL, [id number] 18:11:00 Test Item Value Reference Range Interpretation Comments VALPROIC ACID TOTAL (BEAKER) (test 94 ug/mL 50-100 code = 924) Therapeutic range for some clinical conditions may be >100 ug/mLMAGNESIUM 2017-09-17 07:11:00 Test Item Value Reference Range Interpretation Comments MAGNESIUM (BEAKER) 1.6 mg/dL 1.6-2.6 Specimen slightly (test code = 627) hemolyzed BASIC METABOLIC [id number] 07:11:00 Test Item Value Reference Range Interpretation [...] DIALYSIS PATIEN TS. LACTIC ACID, VENOUS, WHOLE [id number] 07:03:00 Test Item Value Reference Range Interpretation Comments LACTATE BLOOD VENOUS 1.1 mmol/L 0.5-2.2 Specime n moderately (2) (BEAKER) (test hemolyzed code = 2872) Effective 04/04/2016: Units/Reference Range ChangeNew: 0.5-2.2 mmol/L Previous: 5-20 mg/dLCBC W/PLT COUNT & AUTO [id number] 06:58:00 Test Item Value Reference Range Interpretation [...] (test code = 2801) EEG AWAKE AND [id number] 15:16:00Reason for exam:->abnormal movements, AMSDATE OF TEST: 09/16/2017 DATE OF REPORT 09/16/2017 ACC: [id number] Start time: 10:52 Stoptime: 11:13 ICD-10: R41.82 CPT Code: 10132 HISTORY: 52 year old woman with prior [...] Parisa Muller MD Neurophysiology Fellow Tai Jackson M.D.,[facility] Professor of Neurology Director, [facility] Epilepsy Center Head, [facility] ophysiology Lab CBC W/PLT COUNT & AUTO [id number] 12:02:00 Test Item Value Reference Range Interpretation [...] (test code = Normal 762) URINALYSIS W/ [id number] 11:57:00 Test Item Value Reference Range Interpretation [...] 2795) Catheter RAD, CHEST, 1 VIEW, NON [id number] 10:55:00Reason for exam:- >pneumoniaShould this be performed [...] mineralization. No acute abnormality is seen. Signed: Arti, Marah MDReport Verified Date/Time: 09/16/2017 10:55:21 Reading Location: [facility] Radiology Reading Room BASIC METABOLIC [id number] 06:30:00 Test Item Value Reference Range Interpretation [...]
[2020-11-25] MEDS ORDERED: SIMETHICONE 80 MG TAB ONE (10:18)
--- NOTE | 2020-11-25 11:23 | RAD REPORT ---
EXAM DESCRIPTION: CT - Stone Protocol - 11/25/2020 10:41 am CLINICAL HISTORY: Flank pain. ABD PAIN COMPARISON: No comparisons TECHNIQUE: Axial images were obtained without oral or IV contrast. Lack of contrast limits solid org an and vascular assessment. The [id number] spans the entirety of the system partially obscuring uppermost abdomen and lung bases. Coronal reformatted images were obtained and reviewed. All CT scans are performed using dose optimization technique as appropriate and may include automated exposure control or mA/KV adjustment according to patient size. FINDINGS: The lower lung ramsey are clear. Imaged portions of the liver and spleen show no suspicious findings on non-contrast imaging. The panc reas and adrenal glands are normal. No pathologic lymphadenopathy in the abdomen or pelvis. 4 mm stone is seen inferior calyx left kidney. 3 mm stone is seen inferior calyx right kidney. 6 mm stone is present posterior mid pole right kidney . Mild right hydronephrosis. No bowel obstruction, free air, free fluid or abscess. No significant stool is present in the rectum. The appendix is not identified as a discrete structure, however, no secondary findings of appendicit is are identified. No significant bony abnormality. IMPRESSION: Mild bilateral nephrolithiasis. Mild right hydronephrosis without obstructing stone. Moderate fecal retention in the rectum.
--- NOTE | 2020-11-25 11:26 | ER ---
Nurse's Notes [facility] Name: Grace Guzman Age: 55 yrs Sex: Female : 1965 Arrival Date: 11/25/2020 Time: 09:53 Bed 16 Private MD: Diagnosis: Unspecified abdominal pain;Constipation;Bilateral nephrolithiasis Presentation: 11/25 09:53 Chief complaint: EMS states: acute abdominal pain this morning. Pt is from [address] Denies nausea/vomiting/diarrhea. 09:53 Coronavirus screen: Client denies travel out of the [place] in the last 14 days. At this [facility] time, the client does not indicate any symptoms associated with coronavirus-19. Ebola Screen: Patient negative for fever greater than or equal to 101.5 degrees Fahrenheit, and additional compatible Ebola Virus Disease symptoms. Initial Sepsis Screen: Does the patient meet any 2 criteria? No. Patient's initial sepsis screen is negative. Does the patient have a suspected source of infection? No. Patient's initial sepsis screen is negative. Risk Assessment: Do you want to hurt yourself or someone else? Patient reports no desire to harm self or others. Onset of symptoms was November 25, 2020. 09:53 Acuity: RODDY 3 aa5 :53 Method Of Arrival: EMS: [place] [id number] 09:53 Care prior to arrival: IV initiated. 20 GA, in the right antecubital area. aa5 ACCIDENT EXAMINER: 11:14 LMP N/A - Post-menopause ll1 Historical: - Allergies: :53 Aspirin; aa5 09:53 PENICILLINS; aa5 - PMHx: 09:53 Anemia; Anxiety; Aphasia; CAD; Contracture; CVA; epilepsy; Hypertension; ibs; MR; aa5 Schizophrenia; vitamin d deficiency; - Immunization history:: Adult Immunizations up to date, Flu vaccine is up to date. - Social history:: Smoking status: Patient denies any tobacco usage or history of. Screenin:36 Abuse screen: Denies threats or abuse. Nutritional screening: No deficits noted. ll1 Tuberculosis screening: No symptoms or risk factors identified. Fall Risk IV access (20 points). Ambulatory Aid- None/Bed Rest/Nurse Assist (0 pts). Mental Status- Overestimates/Forgets Limitations (15 pts.). Total De La Cruz Fall Scale indicates Low Risk Score (25-44 pts). Assessment: 09:55 General: Appears in no apparent distress. Behavior is calm, cooperative, appropriate ll1 for age. Pain: Complains of pain in abdomen Quality of pain is described as aching. Neuro: No deficits noted. Cardiovascular: No deficits noted. Respiratory: No deficits noted. GI: Abdomen is flat, Bowel sounds present X 4 quads. Abd is soft and non tender X 4 quads. Reports lower abdominal pain, upper abdominal pain, cramping. 11:00 Reassessment: No changes from previously documented assessment. Patient and/or family ll1 updated on plan of care and expected duration. Pain level reassessed. 12:00 Reassessment: No changes from previously documented assessment. Patient and/or family ll1 updated on plan of care and expected duration. Pain level reassessed. Vital Signs: 09:53 BP 101 / 73; Pulse 73; Resp 18 S; Temp 97.7(O); Pulse Ox 100% on R/A; aa5 11:14 BP 95 / 69; Pulse 74; Resp 17; Pulse Ox 98% ; ll1 12:24 BP 102 / 61; Pulse 75; Resp 17; Temp 98.0; Pulse Ox 99% ; ll1 ED Course: 09:53 Patient arrived in ED. aa5 09:53 Arm band placed on. aa5 09:53 No provider procedures requiring assistance completed. Maintain EMS IV. Dressing ll1 intact. Good blood return noted. Site clean \T\ dry. Gauge \T\ site: 20 G R AC. 09:55 Triage completed. aa5 09:56 Babs Gerardo FNP-C is [facility]. snw 09:56 Antelmo Thakkar MD is Attending Physician. snw 09:59 Venkat Owusu, ADELFO is Primary Nurse. ll1 10:36 Patient has correct armband on for positive identification. Bed in low position. Call ll1 light in reach. Side rails up X 1. 10:42 CT Stone Protocol In Process Unspecified. EDMS 12:19 IV discontinued, intact, bleeding controlled, No redness/swelling at site. Pressure ll1 dressing applied. Administered Medications: 10:11 Drug: Simethicone 240 mg Route: PO; ll1 11:15 Follow up: Response: No adverse reaction; RASS: Alert and Calm (0) ll1 11:34 Drug: Dulcolax Suppository 10 mg Route: MI; ll1 Outcome: 11:26 Discharge ordered by MD. marcano 12:18 Discharged to home via ambulance. ll1 12:18 Condition: report given to nurse at [facility] 12:18 Discharge instructions given to patient, Instructed on discharge instructions, follow up and referral plans. medication usage, Demonstrated understanding of instructions, follow-up care, medications, Prescriptions given X 1. 12:57 Patient left the ED. ca1 Signatures: Dispatcher [employer] EDMS Babs Gerardo, SURVEY RODMAN-C SURVEY RODMAN-Csnw Savana Billy, RN RN aa5 Raquel Cantu RN RN ca1 Venkat Owusu RN RN ll1 Corrections: (The following items were deleted from the chart) 11:17 11:15 BP 105 / 75; ll1 ll1
--- NOTE | 2020-11-25 11:27 | EDPHYS ---
Physician Documentation [facility] Name: Grace Guzman Age: 55 yrs Sex: Female : 1965 Arrival Date: 11/25/2020 Time: 09:53 Bed 16 Private MD: ED Physician Antelmo Thakkar HPI: 11/25 10:00 This 55 yrs old Female presents to ER via EMS with complaints of Abdominal snw Pain. 10:00 The patient presents with abdominal pain that is diffuse. Onset: The symptoms/episode snw began/occurred suddenly, just prior to arrival. The symptoms do not radiate. Associated signs and symptoms: Pertinent positives: diarrhea. The symptoms are described as sharp, shooting. Severity of pain: At its worst the pain was incapacitating in the emergency department the pain has resolved. It is unknown whether or not the patient has had similar symptoms in the past. It is unknown whether or not the patient has recently seen a physician. 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 - Social history:: Smoking status: Patient denies any tobacco usage or history of. ROS: 10:00 Constitutional: Negative for fever, chills, and weight loss, Eyes: Negative for injury, snw pain, redness, and discharge, ENT: Negative for injury, pain, and discharge, Neck: Negative for injury, pain, and swelling, Cardiovascular: Negative for chest pain, palpitations, and edema, Respiratory: Negative for shortness of breath, cough, wheezing, and pleuritic chest pain, Back: Negative for injury and pain, : Negative for injury, bleeding, discharge, and swelling, MS/Extremity: Negative for injury and deformity, Skin: Negative for injury, rash, and discoloration, Neuro: Negative for headache, weakness, numbness, tingling, and seizure, Psych: Negative for depression, anxiety, suicide ideation, homicidal ideation, and hallucinations. 10:00 Abdomen/GI: Positive for abdominal pain, pt states she had severe, resolved abdominal pain post drinking large amount of coke. Exam: 09:59 Constitutional: This is a well developed, well nourished patient who is awake, alert, snw and in no acute distress. Head/Face: Normocephalic, atraumatic. Eyes: Pupils equal round and reactive to light, extra-ocular motions intact. Lids and lashes normal. Conjunctiva and sclera are non-icteric and not injected. Cornea within normal limits. Periorbital areas with no swelling, redness, or edema. ENT: Nares patent. No nasal discharge, no septal abnormalities noted. Tympanic membranes are normal and external auditory canals are clear. Oropharynx with no redness, swelling, or masses, exudates, or evidence of obstruction, uvula midline. Mucous membranes moist. Neck: Trachea midline, no thyromegaly or masses palpated, and no cervical lymphadenopathy. Supple, full range of motion without nuchal rigidity, or vertebral point tenderness. No Meningismus. Chest/axilla: Normal chest wall appearance and motion. Nontender with no deformity. No lesions are appreciated. Cardiovascular: Regular rate and rhythm with a normal S1 and S2. No gallops, murmurs, or rubs. Normal PMI, no JVD. No pulse deficits. Respiratory: Lungs have equal breath sounds bilaterally, clear to auscultation and percussion. No rales, rhonchi or wheezes noted. No increased work of breathing, no retractions or nasal flaring. Abdomen/GI: Soft, non-tender, hypoactive bowel sounds . No distension or tympany. No guarding or rebound. No evidence of tenderness throughout. +for midline scar down abdomen Back: No spinal tenderness. No costovertebral tenderness. Full range of motion. Skin: Warm, dry with normal turgor. Normal color with no rashes, no lesions, and no evidence of cellulitis. MS/ Extremity: Pulses equal, no cyanosis. Neurovascular intact. Full, normal range of motion. 09:59 Neuro: seizure activity, is not displayed by the patient, pt mildly contractured. Vital Signs: 09:53 BP 101 / 73; Pulse 73; Resp 18 S; Temp 97.7(O); Pulse Ox 100% on R/A; aa5 11:14 BP 95 / 69; Pulse 74; Resp 17; Pulse Ox 98% ; ll1 12:24 BP 102 / 61; Pulse 75; Resp 17; Temp 98.0; Pulse Ox 99% ; ll1 MDM: 10:02 Patient medically screened. snw 11:54 Data reviewed: vital signs, nurses notes. Data interpreted: Pulse oximetry: on room air snw is 98 %. Interpretation: normal. Counseling: I had a detailed discussion with the patient and/or guardian regarding: the historical points, exam findings, and any diagnostic results supporting the discharge/admit diagnosis, radiology results, the need for outpatient follow up, to return to the emergency department if symptoms worsen or persist or if there are any questions or concerns that arise at home. Special discussion: Based on the patient's Hx, exam, and Dx evaluation, there is no indication for emergent surgery or inpatient Tx. It is understood by the patient/guardian that if the Sx's persist or worsen they need to return immediately for re-evaluation. Based on the history and exam findings, there is no indication for further emergent testing or inpatient evaluation. I discussed with the patient/guardian the need to see the primary care provider for further evaluation of the symptoms. 11/25 09:58 Order name: CT Stone Protocol; Complete Time: 11:24 snw Administered Medications: 10:11 Drug: Simethicone 240 mg Route: PO; ll1 11:15 Follow up: Response: No adverse reaction; RASS: Alert and Calm (0) ll1 11:34 Drug: Dulcolax Suppository 10 mg Route: VT; ll1 Disposition: 13:04 Co-signature as Attending Physician, Antelmo Thakkra MD I agree with the assessment and kdr plan of care. Disposition: 11/25/20 11:26 Discharged to Home. Impression: Unspecified abdominal pain, Constipation, Bilateral nephrolithiasis. - Condition is Stable. - Discharge Instructions: Abdominal Pain, Adult, Constipation, Adult, High-Fiber Diet, Kidney Stones, Intestinal Gas and Gas Pains, Pediatric, Dietary Guidelines to Help Prevent Kidney Stones. - Prescriptions for Miralax 17 gram/dose Oral - take 1 packet by ORAL route once daily dilute powder in 8 ounces of water or juice; 1 box. - Medication Reconciliation Form, Thank You Letter, Antibiotic Education, Prescription Opioid Use form. - Follow up: Emergency Department; When: As needed; Reason: Worsening of condition. Follow up: Private Physician; When: 2 - 3 days; Reason: Recheck today's complaints, Continuance of care, Re-evaluation by your physician. Signatures: Dispatcher [employer] EDMS Antelmo Thakkar MD MD kdr Babs Gerardo, DRIVER'S LICENSE REVIEWING OFFICER-C DRIVER'S LICENSE REVIEWING OFFICER-Csnw Savana Billy, RN RN aa5 Raquel Cantu RN RN ca1 Venkat Owusu RN RN ll1 Corrections: (The following items were deleted from the chart) 12:57 11:26 11/25/2020 11:26 Discharged to Home. Impression: Unspecified abdominal pain; ca1 Constipation; Bilateral nephrolithiasis. Condition is Stable. Forms are Medication Reconciliation Form, Thank You Letter, Antibiotic Education, Prescription Opioid Use. Follow up: Emergency Department; When: As needed; Reason: Worsening of condition. Follow up: Private Physician; When: 2 - 3 days; Reason: Recheck today's complaints, Continuance of care, Re-evaluation by your physician. snw
[2020-11-25] MEDS ORDERED: BISACODYL 10 MG RECTAL SUPP ONE (11:44)
[2020-11-25 13:20] VITALS: BP 102/61; TEMP 98; O2SAT 99
== END 2020-11-25 12:57 | disposition home or self-care (01) ==
LOC: ER 09:47
DX: K59.00 Constipation, unspecified (principal); N20.0 Calculus of kidney; I10 Essential (primary) hypertension; Z88.0 Allergy status to penicillin; Z88.6 Allergy status to analgesic agent
CPT/HCPCS: 74176; 76377; 99284

== ENCOUNTER 2020-12-01 13:10 | Emergency (ER) | payer OTHER ==
--- OUTSIDE RECORDS SUMMARY | 2020-12-01 13:12 | XMS REPORT | Continuity of Care Document ---
:1965 Author Organization [facility] t Address 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[address] quadripleg quadripleg 0-31 Catina kes - [place] ia 00:00: Medical 00 [place] Moderate Moderate Disease Active 2016[facility]12 [facility] 00 [place] Encephalop Encephalop Disease Active 2016-[address] athy acute athy acute 0-15 Catina kes - 00:00: Medical 00 Center Allergies, Adverse Reactions, Alerts Allergy Allergy Status Severity Reaction(s) Onset Inactive Treating Comm ents Source Name Type Date Date Clinician Aspirin Propensi Active Nausea And 2016-[address] ty to Vomiting 0-16 [facility] - adverse 00:00: Medical reaction 00 [place] Penicill Propensi Active Rash 2016-[address] [facility] ty to 0-16 [facility] - adverse 00:00: Medical reaction 00 [place] Social History Social Habit Start Date Stop Date Quantity Comments Source Sex Assigned At [facility] Medications Ordered Filled Start Stop Current Ordering Indication Dosage Frequency Signature Comments Components Source Medication Medication Date Date Medication? Clinician (SIG) Name Name baclofen 2016-12 Yes muscle 20mg [id number] Take [address] [facility] (LIORESAL) 0-18 spasticity [id number] by mouth 3 [facility] - 20 MG 17:49: of spinal 3D (three) Medi david tablet 11 origin times Center daily. acetaminoph 2016-12 Yes pain 650mg Q.23623516 Take [address] en 0-18 [id number] mg by [facility] - (TYLENOL) 17:49: 3D mouth 3 Medic al 325 MG 11 (three) Center tablet times daily. benztropine 2016-12 Yes extrapyrami .5mg Q.5D Take 0.[address] [facility] (COGENTIN) 0-18 huy disease mg by L ukes - 0.5 MG 17:49: mouth 2 Medical tablet 11 (two) Center times daily. divalproex 2016-12 Yes epilepsy 500mg Q.21469458 Take [address] (DEPAKOTE) 0-18 [id number] mg by Catina kes - 250 MG [...] 17:49: cerebrovasc daily. Med ical tablet 11 [facility] accident cholecalcif 2016-12 Yes vitamin D 1000U [...] 1095) No growth in 5 days BLOOD [id number] 11:01:00 Test Item Value Reference Range Interpretation Comments CULTURE (BEAKER) (test No growth in 5 days code = 1095) URINE [id number] 11:15:00 Test Item Value Reference Range Interpretation Comments CULTURE (BEAKER) (test code = 1095) No growth [id number] 08:30:00 Test Item Value Reference Range Interpretation Comments AMMONIA (BEAKER) (test code = 348) 69 mol/L 18-72 CBC W/PLT COUNT & AUTO [id number] 07:44:00 Test Item Value Reference Range Interpretation [...] GRANULOCYTES-RELATIVE PERCENT (BEAKER) (test code = 2801) [id number] 07:09:00 Test Item Value Reference Range Interpretation Comments MAGNESIUM (BEAKER) (test code = 1.7 mg/dL 1.6-2.6 627) BASIC METABOLIC [id number] 07:09:00 Test Item Value Reference Range Interpretation [...] FOR DIALYSIS PATIEN TS. VALPROIC ACID LEVEL, [id number] 18:11:00 Test Item Value Reference Range Interpretation Comments VALPROIC ACID TOTAL (BEAKER) (test 94 ug/mL 50-100 code = 924) Therapeutic range for some clinical conditions may be >100 ug/mLMAGNESIUM 2017-09-17 07:11:00 Test Item Value Reference Range Interpretation Comments MAGNESIUM (BEAKER) 1.6 mg/dL 1.6-2.6 Specimen slightly (test code = 627) hemolyzed BASIC METABOLIC [id number] 07:11:00 Test Item Value Reference Range Interpretation [...] DIALYSIS PATIEN TS. LACTIC ACID, VENOUS, WHOLE [id number] 07:03:00 Test Item Value Reference Range Interpretation Comments LACTATE BLOOD VENOUS 1.1 mmol/L 0.5-2.2 Specime n moderately (2) (BEAKER) (test hemolyzed code = 2872) Effective 04/04/2016: Units/Reference Range ChangeNew: 0.5-2.2 mmol/L Previous: 5-20 mg/dLCBC W/PLT COUNT & AUTO [id number] 06:58:00 Test Item Value Reference Range Interpretation [...] (test code = 2801) EEG AWAKE AND [id number] 15:16:00Reason for exam:->abnormal movements, AMSDATE OF TEST: 09/16/2017 DATE OF REPORT 09/16/2017 ACC: [id number] Start time: 10:52 Stoptime: 11:13 ICD-10: R41.82 CPT Code: 52533 HISTORY: 52 year old woman with prior [...] Parisa Muller MD Neurophysiology Fellow Tai Jackson M.D.,[facility] Professor of Neurology Director, [facility] Epilepsy Center Head, [facility] ophysiology Lab CBC W/PLT COUNT & AUTO [id number] 12:02:00 Test Item Value Reference Range Interpretation [...] (test code = Normal 762) URINALYSIS W/ [id number] 11:57:00 Test Item Value Reference Range Interpretation [...] 2795) Catheter RAD, CHEST, 1 VIEW, NON [id number] 10:55:00Reason for exam:- >pneumoniaShould this be performed [...] MDReport Verified Date/Time: 09/16/2017 10:55:21 Reading Location: [facility] Radiology Reading Room BASIC METABOLIC [id number] 06:30:00 Test Item Value Reference Range Interpretation [...]
--- OUTSIDE RECORDS SUMMARY | 2020-12-01 13:12 | XMS REPORT | Clinical Summary ---
:1965 Author Organization [facility] Address [address] [place] [address] Care Team Providers Name Role Phone Sharptamara [...] Not on file Results Not on fileafter 12/01/2019 Advance Directives For more information, please contact: [phone] Code Status Date Activated Date Inactivated Comments Full Code 09/15/2017 11:20 PM 09/18/2017 7:49 PM This code status was determined by: Patient
--- NOTE | 2020-12-01 14:16 | RAD REPORT ---
EXAM DESCRIPTION: CT - Head Brain Wo Cont - 12/01/2020 2:07 pm CLINICAL HISTORY: SEIZURE, unresponsive COMPARISON: CT head August 01 TECHNIQUE: Axial 5 mm thick images of the head were obtained without IV contrast. All CT scans are performed using dose optimization technique as appropriate and may include automated exposure control or mA/KV adjustment according to patient size. FINDINGS: No intracranial hemorrhage, mass, edema or shift of mid-line structures. No acute infarcti on changes seen. No cortical edema or sulcal effacement. The bifrontal encephalomalacia pattern match es the comparison. Ventricles are enlarged in proportion to the encephalomalacia. No acute intracrani al process seen. Mastoid air cells and visualized portions of the paranasal sinuses are clear. No acute bony findings. IMPRESSION: No hemorrhage, mass or acute intracranial finding. Bifrontal encephalomalacia pattern matches comparison. No new intracranial finding since July.
[2020-12-01 15:40] LABS: Absolute Lymphocytes (CBC) 2.3 K/uL (0.7-4.9); Basophils % 0.5 % (0-1.3); Hematocrit 38.8 % (36.0-45.0); Lymphocytes % 18.1 % (15.3-44.8); MPV 9.1 fL (7.6-11.3); RBC Red Blood Cell Count 4.02 M/uL (3.86-4.86)
[2020-12-01 15:42] LABS: BUN Blood Urea Nitrogen 12 mg/dL (7-18); Bicarbonate 32 mmol/L (21-32); Glucose Level 81 mg/dL (74-106); Potassium 3.8 mmol/L (3.5-5.1); Sodium Level 139 mmol/L (136-145)
[2020-12-01 17:23] LABS: Blood Morphology Comment NOT SEEN (NOT SEEN); Platelet Estimate ADEQ
[2020-12-01] MEDS ORDERED: CIPROFLOXACIN HCL 500 MG TAB ONE (17:51)
[2020-12-01] MEDS ORDERED: NA CHLORIDE 0.9% 1,000 ML ONE (17:51)
--- NOTE | 2020-12-01 17:58 | ER ---
Nurse's Notes [facility] Name: Grace Guzman Age: 55 yrs Sex: Female : 1965 Arrival Date: 12/01/2020 Time: 13:14 Bed 26 Private MD: Diagnosis: Urinary tract infection, site not specified Presentation: 12/01 13:14 Chief complaint: EMS states: Pt from [facility], staff reports pt was ph found unresponsive in wheelchair, did nnot awaken to sternal rub, hx of absence seizures and CVA w/ L sided deficits, pt reports that she did not have a seizure and was asleep, drowsy upon arrival to ED, VSS. Coronavirus screen: Client denies travel out of the [place] in the last 14 days. At this time, the client does not indicate any symptoms associated with coronavirus-19. Ebola Screen: No symptoms or risks identified at this time. Initial Sepsis Screen: Does the patient meet any 2 criteria? No. Patient's initial sepsis screen is negative. Does the patient have a suspected source of infection? No. Patient's initial sepsis screen is negative. Risk Assessment: Do you want to hurt yourself or someone else? Patient reports no desire to harm self or others. Onset of symptoms was December 01, 2020. 13:14 Method Of Arrival: EMS: [facility] 13:14 Acuity: RODDY 3 ph Triage Assessment: 19:31 General: Appears comfortable, Behavior is calm, cooperative. rv Historical: - Allergies: 13:24 Aspirin; ph 13:24 PENICILLINS; ph - Home Meds: 13:24 acetaminophen 325 mg Oral tab 2 tabs three times a day [Active]; baclofen 10 mg oral ph tab 1 tab 3 times per day [Active]; benztropine 0.5 mg Oral tab 1 tab 2 times per day [Active]; Depakote 500 mg oral TbEC 2 tabs 2 times per day [Active]; docusate sodium 100 mg Oral tab 1 cap 2 times per day [Active]; gabapentin 800 mg Oral tab 1 tab twice a day [Active]; Keppra 1,000 mg oral tab 1 tab every 12 hours [Active]; Benadryl 25 mg Oral cap 1 cap every 8 hours PRN [Active]; buspirone 10 mg Oral tab 2 tabs 2 times per day [Active]; lactulose 10 gram/15 mL (15 mL) Oral soln 30 mL once daily [Active]; Lipitor 40 mg Oral tab 1 tab nightly [Active]; loratadine 10 mg oral tab 1 tab once daily [Active]; melatonin 5 mg Oral tab nightly [Active]; Risperdal 2 mg oral tab 1 tab 2 times per day [Active]; tramadol 50 mg Oral tab 1 tab every 6 hours [Active]; Vitamin D3 1,000 unit Oral tab daily [Active]; doxycycline hyclate 100 mg Oral cap 1 cap every 12 hours [Active]; - PMHx: 13:24 Anemia; Anxiety; Aphasia; CAD; Contracture; CVA; epilepsy; Hypertension; ibs; MR; ph Schizophrenia; vitamin d deficiency; - Immunization history:: Adult Immunizations up to date. - Social history:: Smoking status: unknown. Screenin:25 Abuse screen: Denies threats or abuse. Denies injuries from another. Nutritional ph screening: No deficits noted. Tuberculosis screening: No symptoms or risk factors identified. Fall Risk No fall in past 12 months (0 pts). Secondary diagnosis (15 points) seizures, impaired mobility, IV access (20 points). Ambulatory Aid- None/Bed Rest/Nurse Assist (0 pts). Gait- Impaired (20 pts.). Mental Status- Oriented to own ability (0 pts). Total De La Cruz Fall Scale indicates High Risk Score (45 or more points). Fall prevention measures have been instituted. Side Rails Up X 2 Placed Close to Nursing Station Frequent Obs/Assessments Occuring Family Present and informed to notify staff if the need to leave the bedside As available patient and family educated on Fall Prevention Program and Strategies. Assessment: 13:26 General: Appears in no apparent distress. slender, Behavior is calm, cooperative, ph appropriate for age. Pain: Complains of pain in anterior aspect of right shoulder. 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 Cardiovascular: Capillary refill < 3 seconds in bilateral fingers Patient's skin is warm and dry. Respiratory: Airway is patent Respiratory effort is even, unlabored, Respiratory pattern is regular, symmetrical. GI: No signs and/or symptoms were reported involving the gastrointestinal system. Derm: Skin is pink, warm \T\ dry. 14:38 Reassessment: Patient appears in no apparent distress at this time. Patient and/or ph family updated on plan of care and expected duration. Pain level reassessed. Pt drowsy but awakens easily, VSS, awaiting lab and radiology results. 16:00 Reassessment: Patient appears in no apparent distress at this time. Patient and/or ph family updated on plan of care and expected duration. Pain level reassessed. 17:00 Reassessment: Patient appears in no apparent distress at this time. No changes from ph previously documented assessment. 18:08 Reassessment: Patient appears in no apparent distress at this time. No changes from ph previously documented assessment. Patient and/or family updated on plan of care and expected duration. Pain level reassessed. Report called to [facility], awaiting transport back to facility. Vital Signs: 13:14 BP 98 / 60; Pulse 94; Resp 16; Temp 97.5; Pulse Ox 98% on R/A; Weight 48.53 kg; ph 14:38 BP 98 / 71; Pulse 87; Resp 16; Pulse Ox 98% on R/A; ph 15:49 BP 97 / 78; Pulse 84; Resp 18; Pulse Ox 98% on R/A; ph 17:00 BP 104 / 78; Pulse 86; Resp 18; Pulse Ox 98% on R/A; ph 18:00 BP 99 / 82; Pulse 87; Resp 18; Temp 97.0; Pulse Ox 97% ; ph 18:41 BP 97 / 72; Pulse 77; Resp 16; Pulse Ox 98% on R/A; ph [place] Coma Score: 19:31 Eye Response: spontaneous(4). Verbal Response: oriented(5). Motor Response: obeys rv commands(6). Total: 15. ED Course: 13:14 Patient arrived in ED. ph 13:18 Triage completed. ph 13:25 Arm band placed on Patient placed in an exam room. ph 13:25 Patient has correct armband on for positive identification. Placed in gown. Bed in low ph position. Call light in reach. Side rails up X 1. Seizure precautions initiated. Pulse ox on. NIBP on. Door closed. Noise minimized. Warm blanket given. 13:29 Norm Hopper NP is PHCP. pm1 13:29 Micheal Ward MD is Attending Physician. pm1 13:51 Nahed Bartholomew, RN is Primary Nurse. ph 14:07 CT Head Brain wo Cont In Process Unspecified. EDMS 14:45 Initial lab(s) drawn, by me, sent to lab. Missed attempt(s): 22 gauge in right ph antecubital area. Bleeding controlled, band aid applied, catheter tip intact. 15:40 Lab(s) recollected, by lift slab operator, sent to lab. ph 17:14 Straight cath inserted, using sterile technique, 16 Fr. Specimen obtained. Returned ph clear yellow urine. Patient tolerated well. 17:50 Inserted saline lock: 22 gauge in right antecubital area, using aseptic technique. ph ,using aseptic technique. per Holden Dai RN. 18:11 No provider procedures requiring assistance completed. ph 19:31 IV discontinued, intact, bleeding controlled, No redness/swelling at site. Pressure rv dressing applied. Administered Medications: 18:01 Drug: NS 0.9% 1000 ml Route: IV; Rate: 1000 ml; Site: right antecubital; ph 19:04 Follow up: Response: No adverse reaction; IV Status: Completed infusion; IV Intake: ph 600ml 18:01 Drug: Cipro 500 mg Route: PO; ph 18:41 Follow up: Response: No adverse reaction ph 18:40 Drug: Keppra 1000 mg Route: IV; Rate: calculated rate; Site: right antecubital; ph 19:04 Follow up: Response: No adverse reaction; IV Status: Completed infusion ph Intake: 19:04 IV: 600ml; Total: 600ml. ph Outcome: 17:58 Discharge ordered by . pm1 19:30 Discharged to assisted. Report called to [facility] rv 19:30 Condition: good 19:30 Discharge instructions given to EMS, Instructed on discharge instructions, follow up and referral plans. medication usage, Demonstrated understanding of instructions, follow-up care, medications, Prescriptions given X 1. 19:31 Patient left the ED. rv Addendum: 12/05/2020 11:19 Addendum: Culture Results: Positive urine culture. Bacteria is resistant to, has d m5 intermediate sensitivity, or is not tested against prescribed antibiotics. Report given to OLIVER for further evaluation and then to cartographic drafter for follow up with patient. Phone call Attempt #1 culture results faxed to Christie at [facility]. Signatures: Dispatcher [employer] Laurence Dubon RN RN dm5 Nahed Bartholomew RN RN ph Norm Hopper, REFRIGERATION PERSON REFRIGERATION PERSON pm1 Sergo Dumas RN RN rv
--- NOTE | 2020-12-01 17:58 | EDPHYS ---
Physician Documentation [facility] Name: Grace Guzman Age: 55 yrs Sex: Female : 1965 Arrival Date: 12/01/2020 Time: 13:14 Bed 26 Private MD: DINORA Physician Micheal Ward HPI: 12/01 13:58 This 55 yrs old Female presents to ER via EMS with complaints of Probable pm1 Seizure. 13:58 The patient presents after having a possible seizure episode. Character of seizure(s): pm1 decreased responsiveness. Seizure onset: just prior to arrival. Context: the seizure(s) was witnessed, by the intermediate staff, occurred at a intermediate or assisted living facility, occurred while the patient was sitting, on wheelchair. Seizure Hx: Seizure medications: Keppra. Associated injury: The patient did not suffer any apparent associated injury. EMS care: none. Current symptoms: Currently, the patient is not experiencing any symptoms. Patient denies any seizure activity and she said she felt the sternal rubbing but wanted to continue taking a nap. Historical: - Allergies: 13:24 Aspirin; ph 13:24 PENICILLINS; ph - Home Meds: 13:24 acetaminophen 325 mg Oral tab 2 tabs three times a day [Active]; baclofen 10 mg oral ph tab 1 tab 3 times per day [Active]; benztropine 0.5 mg Oral tab 1 tab 2 times per day [Active]; Depakote 500 mg oral TbEC 2 tabs 2 times per day [Active]; docusate sodium 100 mg Oral tab 1 cap 2 times per day [Active]; gabapentin 800 mg Oral tab 1 tab twice a day [Active]; Keppra 1,000 mg oral tab 1 tab every 12 hours [Active]; Benadryl 25 mg Oral cap 1 cap every 8 hours PRN [Active]; buspirone 10 mg Oral tab 2 tabs 2 times per day [Active]; lactulose 10 gram/15 mL (15 mL) Oral soln 30 mL once daily [Active]; Lipitor 40 mg Oral tab 1 tab nightly [Active]; loratadine 10 mg oral tab 1 tab once daily [Active]; melatonin 5 mg Oral tab nightly [Active]; Risperdal 2 mg oral tab 1 tab 2 times per day [Active]; tramadol 50 mg Oral tab 1 tab every 6 hours [Active]; Vitamin D3 1,000 unit Oral tab daily [Active]; doxycycline hyclate 100 mg Oral cap 1 cap every 12 hours [Active]; - PMHx: 13:24 Anemia; Anxiety; Aphasia; CAD; Contracture; CVA; epilepsy; Hypertension; ibs; MR; ph Schizophrenia; vitamin d deficiency; - Immunization history:: Adult Immunizations up to date. - Social history:: Smoking status: unknown. ROS: 13:58 Constitutional: Negative for fever, chills, and weight loss, Cardiovascular: Negative pm1 for chest pain, palpitations, and edema, Respiratory: Negative for shortness of breath, cough, wheezing, and pleuritic chest pain, Abdomen/GI: Negative for abdominal pain, nausea, vomiting, diarrhea, and constipation, Back: Negative for injury and pain, MS/Extremity: Negative for injury and deformity, Skin: Negative for injury, rash, and discoloration, Neuro: Negative for headache, weakness, numbness, tingling, and seizure. Exam: 13:58 Constitutional: This is a well developed, well nourished patient who is awake, alert, pm1 and in no acute distress. Head/Face: Normocephalic, atraumatic. 13:58 Skin: Warm, dry with normal turgor. Normal color with no rashes, no lesions, and no evidence of cellulitis. 13:58 Neck: External neck: no acute changes, tenderness, is not appreciated. 13:58 Cardiovascular: Exam negative for acute changes, Rate: normal, Rhythm: regular, Pulses: no pulse deficits are appreciated. 13:58 Respiratory: Exam negative for acute changes, respiratory distress, shortness of breath. 13:58 Musculoskeletal/extremity: Exam is negative for acute changes, Extremities: no tenderness present, Circulation is intact in all extremities. Musculoskeletal/extremity: Exam is negative for acute changes, Extremities: no tenderness present, Circulation is intact in all extremities. 13:58 Neuro: Exam negative for acute changes, Orientation: is normal, Mentation: is normal. Vital Signs: 13:14 BP 98 / 60; Pulse 94; Resp 16; Temp 97.5; Pulse Ox 98% on R/A; Weight 48.53 kg; ph 14:38 BP 98 / 71; Pulse 87; Resp 16; Pulse Ox 98% on R/A; ph 15:49 BP 97 / 78; Pulse 84; Resp 18; Pulse Ox 98% on R/A; ph 17:00 BP 104 / 78; Pulse 86; Resp 18; Pulse Ox 98% on R/A; ph 18:00 BP 99 / 82; Pulse 87; Resp 18; Temp 97.0; Pulse Ox 97% ; ph 18:41 BP 97 / 72; Pulse 77; Resp 16; Pulse Ox 98% on R/A; ph Natalio Coma Score: 19:31 Eye Response: spontaneous(4). Verbal Response: oriented(5). Motor Response: obeys rv commands(6). Total: 15. MDM: 13:30 Patient medically screened. [facility] 17:57 Data reviewed: vital signs. pm1 17:57 Counseling: I had a detailed discussion with the patient and/or guardian regarding: the pm1 historical points, exam findings, and any diagnostic results supporting the discharge/admit diagnosis, lab results, radiology results, to return to the emergency department if symptoms worsen or persist or if there are any questions or concerns that arise at home. 12/01 13:57 Order name: CBC with Diff; Complete Time: 17:36 pm1 12/01 13:57 Order name: BMP; Complete Time: 16:04 pm1 12/01 15:43 Order name: Manual Differential; Complete Time: 17:36 EDAR 12/01 16:07 Order name: Urine Microscopic Only; Complete Time: 15:40 pm1 12/01 17:20 Order name: Urine Dipstick--Ancillary (enter results); Complete Time: 18:28 em1 12/01 18:46 Order name: Urine Culture [facility] [place] 12/01 13:57 Order name: CT Head Brain wo Cont; Complete Time: 14:22 pm1 12/01 13:57 Order name: IV Saline Lock; Complete Time: 18:41 pm1 12/01 13:57 Order name: EKG; Complete Time: 13:58 pm1 12/01 13:57 Order name: EKG - Nurse/Tech; Complete Time: 14:38 pm1 12/01 16:07 Order name: Urine Dipstick-Ancillary (obtain specimen); Complete Time: 17:12 pm1 Administered Medications: 18:01 Drug: NS 0.9% 1000 ml Route: IV; Rate: 1000 ml; Site: right antecubital; ph 19:04 Follow up: Response: No adverse reaction; IV Status: Completed infusion; IV Intake: ph 600ml 18:01 Drug: Cipro 500 mg Route: PO; ph 18:41 Follow up: Response: No adverse reaction ph 18:40 Drug: Keppra 1000 mg Route: IV; Rate: calculated rate; Site: right antecubital; ph 19:04 Follow up: Response: No adverse reaction; IV Status: Completed infusion ph Disposition: 12/02 07:01 Co-signature as Attending Physician, iMcheal Ward MD I agree with the assessment and gabriella plan of care. Disposition: 12/01/20 17:58 Discharged to Home. Impression: Urinary tract infection, site not specified. - Condition is Stable. - Discharge Instructions: Urinary Tract Infection, Adult. - Prescriptions for Cipro 500 mg Oral Tablet - take 1 tablet by ORAL route every 12 hours for 7 days; 14 tablet. - Medication Reconciliation Form, Thank You Letter, Antibiotic Education, Prescription Opioid Use form. - Follow up: Emergency Department; When: As needed; Reason: Worsening of condition. Follow up: Private Physician; When: 2 - 3 days; Reason: Recheck today's complaints, Continuance of care, Re-evaluation by your physician. - Problem is new. - Symptoms have improved. Signatures: Dispatcher [employer] EDMicheal Chowdhury MD MD cha Hall, Patricia, RN RN Norm Prabhakar, ARIADNA GAGE MAKER pm1 Sergo Dumas RN RN rv Corrections: (The following items were deleted from the chart) 12/01 19:31 17:58 12/01/2020 17:58 Discharged to Home. Impression: Urinary tract infection, site rv not specified. Condition is Stable. Forms are Medication Reconciliation Form, Thank You Letter, Antibiotic Education, Prescription Opioid Use. Follow up: Emergency Department; When: As needed; Reason: Worsening of condition. Follow up: Private Physician; When: 2 - 3 days; Reason: Recheck today's complaints, Continuance of care, Re-evaluation by your physician. Problem is new. Symptoms have improved. pm1
[2020-12-01 18:22] LABS: Urine Blood 1+ (NEG); Urine Glucose NEGATIVE (NEG); Urine Protein NEGATIVE (NEG); Urine pH 5.5 (5.0-7.0)
[2020-12-01 18:44] LABS: Urine Bacteria >50 /HPF (<20)
[2020-12-01] MEDS ORDERED: LEVETIRACETAM 500 MG/5 ML VIAL IV ONE (18:48)
[2020-12-01] MEDS ORDERED: NA CHLORIDE 0.9% 100 ML ONE (18:48)
[2020-12-01 19:41] VITALS: TEMP 97
[2020-12-01 19:42] VITALS: BP 97/72; O2SAT 98
--- NOTE | 2020-12-02 16:10 | EKG ---
Test Date: 2020-12-01 Test Time: 14:17:44 Architecture Technician: PH MEASUREMENT RESULTS: Intervals: Rate: 89 UT: 152 QRSD: 76 QT: 350 QTc: 425 [place]: P: 60 UT: 152 QRS: 69 T: 69 INTERPRETIVE STATEMENTS: Normal sinus rhythm Normal ECG Compared to ECG 08/01/2020 13:50:04 No significant changes Electronically Signed On 12-02-20 16:09:25 SNUFF DRIER by Hua Marion
== END 2020-12-01 19:31 | disposition home or self-care (01) ==
LOC: ER 13:10
DX: N39.0 Urinary tract infection, site not specified (principal); I10 Essential (primary) hypertension; F20.9 Schizophrenia, unspecified; G40.909 Epilepsy, unspecified, not intractable, without status epilepticus; Z86.73 Personal history of transient ischemic attack (TIA), and cerebral infarction without residual deficits; Z88.0 Allergy status to penicillin; Z88.6 Allergy status to analgesic agent
CPT/HCPCS: 96365; 96361; 93005; 87088; 85025; 87086; 80048; 36415; 87077; 87186; 70450; 51702; 99284; J1953; J7030; 81003; 81015

== ENCOUNTER 2021-03-24 11:22 | Emergency (ER) | payer OTHER ==
--- OUTSIDE RECORDS SUMMARY | 2021-03-24 11:25 | XMS REPORT | Continuity of Care Document ---
:1965 Author Organization [facility] t Address [address] [place] [address] Care Team Providers Name Role Phone Sharpless Primary Care Physician CHILO NATH Attending Clinician Unavailable ALEX NATH Admitting Clinician Unavailable Problems Condition Condition Condition Status Onset Resolution Last Treating Co mments Source Name Details Category Date Date Treatment Clinician Date Moderate Moderate Disease [facility] 2016[facility]12 [facility] protein-[facility] protein-ca 0-31 Catina kes - tristin tristin 00:00: Medical malnutriti malnutriti 00 Ce nter on on Functional Functional Disease Active 2016-[address] quadripleg quadripleg 0-31 Catina kes - ia ia 00:00: Medical 00 [place] Nonintract Nonintract Disease Active 2016-[address] able able 0-16 [facility] - generalize generalize 00:00: Me dical d d 00 [place] idiopathic idiopathic epilepsy epilepsy without without status status epilepticu epilepticu s s Leukocytos Leukocytos Disease Active 2016-[address] is is 0-16 [facility] - 00:[facility]: Medical 00 [place] Encephalop Encephalop Disease Active 2016-[address] athy acute athy acute 0-15 Catina kes - 00:00: Medical 00 Center Allergies, Adverse Reactions, Alerts Allergy Allergy Status Severity Reaction(s) Onset Inactive Treating Comm ents Source Name Type Date Date Clinician Aspirin Propensi Active Nausea And 2016-[address] [facility] [address] ty to Vomiting 0-16 [facility] - adverse 00:00: Medical reaction 00 [place] [facility] Penicill Propensi Active Rash 2016-[address] [facility] ins ty to 0-16 [facility] - adverse 00:00: Medical reaction 00 Center s Social History Social Habit Start Date Stop Date Quantity Comments Source Sex Assigned At [facility] Medications Ordered Filled Start Stop Current Ordering Indication Dosage Frequency Signature Comments Components Source Medication Medication Date Date Medication? Clinician (SIG) Name Name baclofen 2016-12 Yes muscle 20mg [id number] Take [address] [facility] (LIORESAL) 0-18 spasticity [id number] by mouth 3 [facility] - 20 MG 17:49: of spinal 3D (three) Medi david tablet 11 origin times Center daily. acetaminoph 2016-12 Yes pain 650mg Q.58331046 Take [address] en 0-18 [id number] mg by [facility] - (TYLENOL) 17:49: 3D mouth 3 Medic al 325 MG 11 (three) Center tablet times daily. benztropine 2016-12 Yes extrapyrami .5mg Q.5D Take 0.[address] [facility] (COGENTIN) 0-18 huy disease mg by L ukes - 0.5 MG 17:49: mouth 2 Medical tablet 11 (two) Center times daily. divalproex 2016-12 Yes epilepsy 500mg Q.19644741 Take [address] (DEPAKOTE) 0-18 [id number] mg by Catina kes - 250 MG [...] 17:49: cerebrovasc daily. Med ical tablet 11 [facility] accident cholecalcif 2016-12 Yes vitamin D [...] 1095) No growth in 5 days BLOOD [id number] 11:01:00 Test Item Value Reference Range Interpretation Comments CULTURE (BEAKER) (test No growth in 5 days code = 1095) URINE [id number] 11:15:00 Test Item Value Reference Range Interpretation Comments CULTURE (BEAKER) (test code = 1095) No growth [id number] 08:30:00 Test Item Value Reference Range Interpretation Comments AMMONIA (BEAKER) (test code = 348) 69 mol/L 18-72 CBC W/PLT COUNT & AUTO [id number] 07:44:00 Test Item Value Reference Range Interpretation [...] GRANULOCYTES-RELATIVE PERCENT (BEAKER) (test code = 2801) [id number] 07:09:00 Test Item Value Reference Range Interpretation Comments MAGNESIUM (BEAKER) (test code = 1.7 mg/dL 1.6-2.6 627) BASIC METABOLIC [id number] 07:09:00 Test Item Value Reference Range Interpretation [...] FOR DIALYSIS PATIEN TS. VALPROIC ACID LEVEL, [id number] 18:11:00 Test Item Value Reference Range Interpretation Comments VALPROIC ACID TOTAL (BEAKER) (test 94 ug/mL 50-100 code = 924) Therapeutic range for some clinical conditions may be >100 ug/mLBASIC METABOLIC [id number] 07:11:00 Test Item Value Reference Range Interpretation [...] S NOT APPLICABLE FOR DIALYSIS PATIEN TS. [id number] 07:11:00 Test Item Value Reference Range Interpretation Comments MAGNESIUM (BEAKER) 1.6 mg/dL 1.6-2.6 Specimen slightly (test code = 627) hemolyzed LACTIC ACID, VENOUS, WHOLE [id number] 07:03:00 Test Item Value Reference Range Interpretation Comments LACTATE BLOOD VENOUS 1.1 mmol/L 0.5-2.2 Specime n moderately (2) (BEAKER) (test hemolyzed code = 1862) Effective 04/04/2016: Units/Reference Range ChangeNew: 0.5-2.2 mmol/L Previous: 5-20 mg/dLCBC W/PLT COUNT & AUTO [id number] 06:58:00 Test Item Value Reference Range Interpretation [...] (test code = 2801) EEG AWAKE AND [id number] 15:16:00Reason for exam:->abnormal movements, AMSDATE OF TEST: 09/16/2017 DATE OF REPORT 09/16/2017 ACC: [id number] Start time: 10:52 Stoptime: 11:13 ICD-10: R41.82 CPT Code: 39672 HISTORY: 52 year old woman with prior [...] Parisa Muller MD Neurophysiology Fellow Tai Jackson M.D.,[facility] Professor of Neurology Director, [facility] Epilepsy Center Head, [facility] ophysiology Lab CBC W/PLT COUNT & AUTO [id number] 12:02:00 Test Item Value Reference Range Interpretation [...] (test code = Normal 762) URINALYSIS W/ [id number] 11:57:00 Test Item Value Reference Range Interpretation [...] 2795) Catheter RAD, CHEST, 1 VIEW, NON [id number] 10:55:00Reason for exam:- >pneumoniaShould this be performed [...] MDReport Verified Date/Time: 09/16/2017 10:55:21 Reading Location: [facility] Radiology Reading Room BASIC METABOLIC [id number] 06:30:00 Test Item Value Reference Range Interpretation [...]
--- NOTE | 2021-03-24 11:40 | RAD REPORT ---
EXAM DESCRIPTION: CT - Ct Stroke Brain Wo Cont - 03/24/2021 11:31 am CLINICAL HISTORY: Confusion/alteration of awareness COMPARISON: 2019 TECHNIQUE: Computed axial tomography of the head was obtained. All CT scans are performed using dose optimization technique as appropriate and may include automated exposure control or mA/KV adjustment according to patient size. FINDINGS: An intracranial bleed is not seen . The ventricles are normal in caliber. No extra-axial fluid collection is noted. Encephalomalacia involving the frontal lobes without significant change. Mild to moderate low-density areas within periventricular, deep and subcortical white matter likely ischemic changes secondary to small vessel disease. Fluid within the sinuses/ mastoids is not seen. IMPRESSION: No acute intracranial abnormality is seen. If patient's symptoms persist MRI of the bra in would be recommended. Dr Ward of the emergency room was notified at 11:34 a.m. March 24, 2021
[2021-03-24 11:42] LABS: Absolute Lymphocytes (CBC) 2.8 K/uL (0.7-4.9); Basophils % 0.8 % (0-1.3); Hematocrit 40.8 % (36.0-45.0); Lymphocytes % 32.4 % (15.3-44.8); MPV 8.6 fL (7.6-11.3)
--- NOTE | 2021-03-24 12:17 | RAD REPORT ---
EXAM DESCRIPTION: Carlos Single View03/24/2021 12:02 pm CLINICAL HISTORY: Unresponsive COMPARISON: 2019 FINDINGS: The lungs appear clear of acute infiltrate. The heart is normal size IMPRESSION: No acute abnormalities displayed
[2021-03-24] MEDS ORDERED: NA CHLORIDE 0.9% 1,000 ML ONE (12:28)
[2021-03-24] MEDS ORDERED: FOLIC ACID 5 MG/ML VIAL ONE (12:29)
[2021-03-24] MEDS ORDERED: levETIRAcetam 1,000 MG in NA CHLORIDE 0.9% 100 ML IV ONE (13:00)
[2021-03-24 13:33] LABS: Protime INR 1.03
[2021-03-24 13:41] LABS: BUN Blood Urea Nitrogen 13 mg/dL (7-18); Bicarbonate 27 mmol/L (21-32); Glucose Level 77 mg/dL (74-106); Potassium 4.1 mmol/L (3.5-5.1); Sodium Level 145 mmol/L (136-145)
--- NOTE | 2021-03-24 15:00 | RAD REPORT ---
EXAM DESCRIPTION: MRI - Brain Wo Cont - 03/24/2021 2:49 pm CLINICAL HISTORY: TIA Headache, drowsiness, CVA symptomology COMPARISON: Ct Stroke Brain Wo Cont dated 03/24/2021 TECHNIQUE: Multi-sequence, multiplanar MR imaging of the brain was performed without contrast. FINDINGS: No intracranial hemorrhage, hydrocephalus or extra-axial fluid collections. No edema or sh ift of midline structures. No findings to suspect brain mass.Moderate brain atrophy with significant periventricular deep white matter chronic microvascular ischemic changes. DWI is negative for acute C VA. Midline structures are normally formed. Mastoid air cells and paranasal sinuses are clear. IMPRESSION: Negative for acute CVA or other acute intracranial abnormality.
--- NOTE | 2021-03-24 15:11 | ER ---
Nurse's Notes [facility] Name: Grace Guzman Age: 56 yrs Sex: Female : 1965 Arrival Date: 03/24/2021 Time: 11:24 Bed 14 Private MD: Diagnosis: Epilepsy and recurrent seizures;Weakness;Urinary tract infection, site not specified Presentation: 03/24 11:21 Chief complaint: EMS states: called out by [facility] for pt being unresponsive, sv found by staff at 1045 laying in bed. Staff reports that her right sided facial droop is more pronounced. BS-130. On EMS arrival pt became alert and speaking. Risk Assessment: Do you want to hurt yourself or someone else? Patient reports no desire to harm self or others. Onset of symptoms was March 24, 2021. 11:21 Method Of Arrival: EMS: [facility] sv 11:21 Acuity: RODDY 2 sv 11:21 Coronavirus screen: Client denies travel out of the [place] in the last 14 days. At this sv time, the client does not indicate any symptoms associated with coronavirus-19. Ebola Screen: No symptoms or risks identified at this time. Initial Sepsis Screen: Does the patient meet any 2 criteria? No. Patient's initial sepsis screen is negative. Does the patient have a suspected source of infection? No. Patient's initial sepsis screen is negative. Triage Assessment: 11:21 General: Appears in no apparent distress. uncomfortable, slender, emaciated, sv malnourished, Behavior is calm, cooperative, appropriate for age. Pain: Denies pain. Neuro: Level of Consciousness is awake, alert, confused, Oriented to person. Cardiovascular: Rhythm is sinus rhythm. Respiratory: Airway is patent Respiratory effort is even, unlabored, Respiratory pattern is regular, symmetrical. Derm: Skin is normal. Musculoskeletal: Contractures noted to BUE and BLE. Historical: - Allergies: 12:03 Aspirin; sv 12:03 PENICILLINS; sv - Home Meds: 13:36 acetaminophen 325 mg Oral tab 1 tab three times a day [Active]; artificial sv tears(hypromellose) 0.4 % Opht drop 1 drop both eyes four times a day [Active]; baclofen 10 mg Oral tab 1 tab 3 times per day [Active]; Benadryl 25 mg Oral cap 1 cap every 8 hours PRN [Active]; buspirone 10 mg Oral tab 2 tabs 2 times per day [Active]; Depakote 500 mg Oral TbEC 2 tabs 2 times per day [Active]; docusate sodium 100 mg Oral tab 1 cap 2 times per day [Active]; Flonase 50 mcg/actuation Nasal spsn 1 spray 2 times per day [Active]; Keppra 1,000 mg Oral tab 1 tab every 12 hours [Active]; lactulose 10 gram/15 mL (15 mL) Oral soln 30 mL once daily [Active]; Lipitor 40 mg Oral tab 1 tab nightly [Active]; loratadine 10 mg Oral tab 1 tab once daily [Active]; melatonin 5 mg Oral tab nightly [Active]; Miralax 17 gram Oral pwpk 1 packet once daily [Active]; multivitamin oral tab daily [Active]; Risperdal 2 mg Oral tab 1 tab 2 times per day [Active]; tramadol 50 mg Oral tab 1 tab Q6H prn [Active]; Vitamin D3 1,000 unit Oral tab daily [Active]; - PMHx: 12:03 CVA; Anemia; Contracture; epilepsy; Anxiety; Aphasia; CAD; Hypertension; ibs; MR; sv Schizophrenia; vitamin d deficiency; MRSA foot; Muscle wasting and atrophy; Seizures; Dysphagia; ESBL resistance; Cognitive communication deficit; Insomnia; - Immunization history:: Client reports having NOT received the Covid vaccine. Flu vaccine is up to date. - Social history:: Smoking status: Patient denies any tobacco usage or history of. - Family history:: not pertinent. Screenin:06 Abuse screen: Denies threats or abuse. Denies injuries from another. Nutritional sv screening: No deficits noted. Tuberculosis screening: No symptoms or risk factors identified. Fall Risk No fall in past 12 months (0 pts). Secondary diagnosis (15 points) impaired mobility, IV access (20 points). Ambulatory Aid- None/Bed Rest/Nurse Assist (0 pts). Gait- Normal/Bed Rest/Wheelchair (0 pts) Mental Status- Overestimates/Forgets Limitations (15 pts.). Total De La Cruz Fall Scale indicates High Risk Score (45 or more points). Fall prevention measures have been instituted. Side Rails Up X 2 Frequent Obs/Assessments Occuring As available patient and family educated on Fall Prevention Program and Strategies. Assessment: 11:22 Reassessment: Code Stroke called. sv 11:32 Reassessment: Pt back from CT. ss 11:43 Reassessment: Dr Ward at the bedside. sv 12:23 Reassessment: No changes from previously documented assessment. sv 12:57 Reassessment: Patient appears in no apparent distress at this time. No changes from sv previously documented assessment. 14:00 Reassessment: Patient appears in no apparent distress at this time. No changes from sv previously documented assessment. 15:14 Reassessment: Patient appears in no apparent distress at this time. No changes from sv previously documented assessment. 15:17 Reassessment: Called outside lab to get time on depakote level. She stated about 15 sv mins. 15:53 Reassessment: Patient appears in no apparent distress at this time. No changes from sv previously documented assessment. 16:38 Reassessment: Patient appears in no apparent distress at this time. No changes from sv previously documented assessment. Vital Signs: 11:21 BP 106 / 62; Pulse 78; Resp 16; Temp 97.2; Pulse Ox 99% ; Height 5 ft. 1 in. (154.94 sv cm); Pain 0/10; 12:00 BP 99 / 69; Pulse 87; Resp 15; Pulse Ox 95% ; sv 13:06 BP 104 / 55; Pulse 84; Resp 15; Pulse Ox 97% ; sv 13:45 BP 100 / 72; Pulse 86; Resp 14; Pulse Ox 96% ; sv 15:00 BP 97 / 57; Pulse 82; Resp 13; Pulse Ox 99% ; sv 15:53 BP 100 / 67; Pulse 91; Resp 16; Pulse Ox 98% ; sv 16:38 BP 95 / 58; Pulse 89; Resp 14; Pulse Ox 96% ; sv ED Course: 11:21 Maintain EMS IV. Dressing intact. Good blood return noted. Site clean \T\ dry. Gauge \T\ sv site: 20G R AC. 11:24 Patient arrived in ED. ll1 11:[address] via stretcher. sv 11:25 pvc monitor on. Pulse ox on. NIBP on. sv 11:28 Batsheva Santos, RN is Primary Nurse. sv 11:28 Initial lab(s) drawn, by ED staff, sent to lab. sv 11:28 Arm band placed on. sv 11:28 Patient has correct armband on for positive identification. Bed in low position. Call sv light in reach. Side rails up X2. 11:30 CT Stroke Brain w/o Contrast In Process Unspecified. EDMS 11:34 Micheal Ward MD is Attending Physician. gabriella 11:48 Triage completed. sv 12:02 Stroke CXR 1 View In Process Unspecified. EDMS 13:37 Valproic Acid (depakote) Sent. sv 13:37 Basic Metabolic Panel Sent. sv 13:37 CBC with Diff Sent. sv 13:46 Awaiting lab results, Awaiting: MRI. sv 14:17 Patient moved to MRI via stretcher. sv 14:38 Brain Wo Cont In Process Unspecified. EDMS 15:10 Lorenzo Gomez MD is Referral Physician. gabriella 15:12 Urine Dipstick-Ancillary Sent. sv Administered Medications: 12:18 Drug: NS 0.9% 1000 ml Route: IV; Rate: 1 bolus; Site: right antecubital; sv 15:53 Follow up: Response: No adverse reaction; IV Status: Completed infusion; IV Intake: sv 1000ml 12:18 Drug: foLIC Acid 1 mg Route: IVPB; Site: right antecubital; sv 12:19 Follow up: Response: No adverse reaction; IV Status: Completed infusion sv 12:57 Drug: Keppra (levETIRAcetam) 1000 mg Route: IV; Rate: per protocol; Site: right sv antecubital; 13:12 Follow up: Response: No adverse reaction; IV Status: Completed infusion; IV Intake: sv 100ml 15:12 Drug: Rocephin (cefTRIAXone) 1 grams Route: IV; Rate: per protocol; Site: right sv antecubital; 15:14 Follow up: Response: No adverse reaction; IV Status: Completed infusion; IV Intake: 10mlsv 15:52 Not Given (Physician Discretion): Cipro (ciprofloxacin) 500 mg PO once sv 15:52 Drug: Cipro (ciprofloxacin) 400 mg Volume: 200 ml; Route: IVPB; Infused Over: 60 mins; sv Site: right antecubital; 16:58 Follow up: Response: No adverse reaction; IV Status: Completed infusion; IV Intake: sv 200ml Point of Care Testing: Blood Glucose: 11:28 Blood Glucose: 89 mg/dL; sv Ranges: Intake: 13:12 IV: 100ml; Total: 100ml. sv 15:14 IV: 10ml; Total: 110ml. sv 15:53 IV: 1000ml; Total: 1110ml. sv 16:58 IV: 200ml; Total: 1310ml. sv Outcome: 15:10 Discharge ordered by . gabriella 17:08 [facility] to [facility]. Report called to Preethi EMANUEL at [facility] 17:08 Condition: stable 17:08 Discharge instructions given to penitentiary, Instructed on discharge instructions, follow up and referral plans. Demonstrated understanding of instructions, follow-up care. 17:32 Patient left the ED. hb Addendum: 03/27/2021 11:11 Addendum: Culture Results: Positive urine culture. Bacteria is resistant to, has a a5 intermediate sensitivity, or is not tested against prescribed antibiotics. Report given to OLIVER for further evaluation and then to tank filler for follow up with patient. Phone call Attempt #1 Contacted [facility] and spoke to Dusty (pt's nurse), results faxed to Dusty. Signatures: Dispatcher [employer] Batsheva Nolasco, RN Micheal Martinez MD MD cha Calderon, Audri, RN RN aa5 Kamla Liao RN RN ss Baxter, Heather, RN RN hb Lewis, Lynsay, RN RN ll1 Corrections: (The following items were deleted from the chart) 03/24 12:03 11:21 BP 106 / 62; Pulse 78bpm; Resp 16bpm; Pulse Ox 99%; Temp 97.2F; Pain 0/10; sv sv
--- NOTE | 2021-03-24 15:11 | EDPHYS ---
Physician Documentation [facility] [place], [place] [facility] Name: Grace Guzman Age: 56 yrs Sex: Female : 1965 Arrival Date: 03/24/2021 Time: 11:24 Bed 14 Private MD: DINORA Physician Micheal Ward HPI: 03/24 11:46 This 56 yrs old Female presents to ER via Unassigned with complaints of gabriella Unresponsive. 11:46 The patient's problem is reported as altered mental status, decreased responsiveness, gabriella weakness, in the right side of face. Onset: The symptoms/episode began/occurred just prior to arrival. Duration: This was a single incident. 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 The symptoms are alleviated by nothing. The symptoms are aggravated by nothing. The patient presents after having a single isolated seizure, that lasted an unknown period of time. Character of seizure(s): Loss of consciousness: the patient experienced loss of consciousness, Motor activity: the motor activity is unknown, Incontinence: none, Apnea: the patient did not experience apnea, Circulation: the patient did not experience evidence of pulse disturbance. Seizure onset: just prior to arrival. Context: the seizure(s) was witnessed, by no one, the downtime is unknown. Seizure Hx: Cause: unknown. Associated injury: The patient did not suffer any apparent associated injury. Historical: - Allergies: 12:03 Aspirin; sv 12:03 PENICILLINS; sv - Home Meds: 13:36 acetaminophen 325 mg Oral tab 1 tab three times a day [Active]; artificial sv tears(hypromellose) 0.4 % Opht drop 1 drop both eyes four times a day [Active]; baclofen 10 mg Oral tab 1 tab 3 times per day [Active]; Benadryl 25 mg Oral cap 1 cap every 8 hours PRN [Active]; buspirone 10 mg Oral tab 2 tabs 2 times per day [Active]; Depakote 500 mg Oral TbEC 2 tabs 2 times per day [Active]; docusate sodium 100 mg Oral tab 1 cap 2 times per day [Active]; Flonase 50 mcg/actuation Nasal spsn 1 spray 2 times per day [Active]; Keppra 1,000 mg Oral tab 1 tab every 12 hours [Active]; lactulose 10 gram/15 mL (15 mL) Oral soln 30 mL once daily [Active]; Lipitor 40 mg Oral tab 1 tab nightly [Active]; loratadine 10 mg Oral tab 1 tab once daily [Active]; melatonin 5 mg Oral tab nightly [Active]; Miralax 17 gram Oral pwpk 1 packet once daily [Active]; multivitamin oral tab daily [Active]; Risperdal 2 mg Oral tab 1 tab 2 times per day [Active]; tramadol 50 mg Oral tab 1 tab Q6H prn [Active]; Vitamin D3 1,000 unit Oral tab daily [Active]; - PMHx: 12:03 CVA; Anemia; Contracture; epilepsy; Anxiety; Aphasia; CAD; Hypertension; ibs; MR; sv Schizophrenia; vitamin d deficiency; MRSA foot; Muscle wasting and atrophy; Seizures; Dysphagia; ESBL resistance; Cognitive communication deficit; Insomnia; - Immunization history:: Client reports having NOT received the Covid vaccine. Flu vaccine is up to date. - Social history:: Smoking status: Patient denies any tobacco usage or history of. - Family history:: not pertinent. ROS: 11:46 Constitutional: Negative for fever, chills, and weight loss, Eyes: Negative for injury, gabriella pain, redness, and discharge, ENT: Negative for injury, pain, and discharge, Neck: Negative for injury, pain, and swelling, Cardiovascular: Negative for chest pain, palpitations, and edema, Respiratory: Negative for shortness of breath, cough, wheezing, and pleuritic chest pain, Abdomen/GI: Negative for abdominal pain, nausea, vomiting, diarrhea, and constipation, Back: Negative for injury and pain, : Negative for injury, bleeding, discharge, and swelling, MS/Extremity: Negative for injury and deformity, Skin: Negative for injury, rash, and discoloration, Psych: Negative for depression, anxiety, suicide ideation, homicidal ideation, and hallucinations, Allergy/Immunology: Negative for hives, rash, and allergies, Endocrine: Negative for neck swelling, polydipsia, polyuria, polyphagia, and marked weight changes, Hematologic/Lymphatic: Negative for swollen nodes, abnormal bleeding, and unusual bruising. 11:46 Neuro: Positive for weakness, right face , weak, unk baseline. Exam: 11:46 Constitutional: This is a well developed, well nourished patient who is awake, alert, gabriella and in no acute distress. Head/Face: Normocephalic, atraumatic. Eyes: Pupils equal round and reactive to light, extra-ocular motions intact. Lids and lashes normal. Conjunctiva and sclera are non-icteric and not injected. Cornea within normal limits. Periorbital areas with no swelling, redness, or edema. ENT: Nares patent. No nasal discharge, no septal abnormalities noted. Tympanic membranes are normal and external auditory canals are clear. Oropharynx with no redness, swelling, or masses, exudates, or evidence of obstruction, uvula midline. Mucous membranes moist. Neck: Trachea midline, no thyromegaly or masses palpated, and no cervical lymphadenopathy. Supple, full range of motion without nuchal rigidity, or vertebral point tenderness. No Meningismus. Chest/axilla: Normal chest wall appearance and motion. Nontender with no deformity. No lesions are appreciated. Cardiovascular: Regular rate and rhythm with a normal S1 and S2. No gallops, murmurs, or rubs. Normal PMI, no JVD. No pulse deficits. Respiratory: Lungs have equal breath sounds bilaterally, clear to auscultation and percussion. No rales, rhonchi or wheezes noted. No increased work of breathing, no retractions or nasal flaring. Abdomen/GI: Soft, non-tender, with normal bowel sounds. No distension or tympany. No guarding or rebound. No evidence of tenderness throughout. Back: No spinal tenderness. No costovertebral tenderness. Full range of motion. Skin: Warm, dry with normal turgor. Normal color with no rashes, no lesions, and no evidence of cellulitis. Neuro: Awake and alert, GCS 15, oriented to person, place, time, and situation. Cranial nerves II-XII grossly intact. Motor strength 5/5 in all extremities. Sensory grossly intact. Cerebellar exam normal. Normal gait. Psych: Awake, alert, with orientation to person, place and time. Behavior, mood, and affect are within normal limits. 11:46 Constitutional: The patient appears in no acute distress, in obvious distress, bedridden , contracted. 11:46 Neuro: Orientation: appropriate for stated age, Mentation: no acute changes, Memory: unable to test, Cranial nerves: is grossly normal based on the patient's age, no acute changes, minimal right face weak vs normal basline. 11:52 Radiologist reports: nad, negative for acute changes, dr elvin pantoja gabriella 12:48 ECG was reviewed by the Attending Physician. [facility] Vital Signs: 11:21 BP 106 / 62; Pulse 78; Resp 16; Temp 97.2; Pulse Ox 99% ; Height 5 ft. 1 in. (154.94 sv cm); Pain 0/10; 12:00 BP 99 / 69; Pulse 87; Resp 15; Pulse Ox 95% ; sv 13:06 BP 104 / 55; Pulse 84; Resp 15; Pulse Ox 97% ; sv 13:45 BP 100 / 72; Pulse 86; Resp 14; Pulse Ox 96% ; sv 15:00 BP 97 / 57; Pulse 82; Resp 13; Pulse Ox 99% ; sv 15:53 BP 100 / 67; Pulse 91; Resp 16; Pulse Ox 98% ; sv 16:38 BP 95 / 58; Pulse 89; Resp 14; Pulse Ox 96% ; sv MDM: 11:34 Patient medically screened. [facility] 12:49 Differential diagnosis: CVA, TIA. Differential diagnosis: cerebral vascular accident, gabriella cardiac arrhythmia, seizure, TIA. Data reviewed: vital signs, nurses notes, lab test result(s), EKG, radiologic studies, CT scan, MRI, plain films. Data interpreted: personnel monitor: rate is 78 beats/min, rhythm is regular, Pulse oximetry: on room air is 99 %. Test interpretation: by ED physician or midlevel provider: ECG, plain radiologic studies. 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 03/24 11:27 Order name: Basic Metabolic Panel ss 03/24 11:27 Order name: CBC with Diff ss 03/24 11:27 Order name: Protime (+inr); Complete Time: 13:41 ss 03/24 11:27 Order name: Ptt, Activated; Complete Time: 13:41 ss 03/24 11:28 Order name: Basic Metabolic Panel; Complete Time: 13:42 EDMS 03/24 11:28 Order name: CBC with Automated Diff EDMS 03/24 11:27 Order name: CT Stroke Brain w/o Contrast; Complete Time: 12:33 03/24 11:27 Order name: Stroke CXR 1 View; Complete Time: 12:33 03/24 11:45 Order name: Valproic Acid (depakote) [facility] 03/24 11:45 Order name: Urine Culture [facility] 03/24 11:45 Order name: BNP [facility] 03/24 11:45 Order name: Valproic Acid (Depakene) Level [facility] 03/24 15:09 Order name: Urine Dipstick-Ancillary [facility] 03/24 11:27 Order name: EKG; Complete Time: 11:28 03/24 11:27 Order name: Accucheck; Complete Time: 12:06 03/24 11:27 Order name: Cardiac monitoring; Complete Time: 12:06 03/24 11:27 Order name: EKG - Nurse/Tech; Complete Time: 12:06 03/24 11:27 Order name: IV Saline Lock; Complete Time: 12:06 03/24 11:27 Order name: Labs collected and sent; Complete Time: 12:06 03/24 11:27 Order name: NPO; Complete Time: 12:06 03/24 11:27 Order name: O2 Per Protocol; Complete Time: 12:06 03/24 11:27 Order name: O2 Sat Monitoring; Complete Time: 12:06 03/24 14:31 Order name: Brain Wo Cont; Complete Time: 15:08 [facility] 03/24 11:27 Order name: Stroke Swallow Screen; Complete Time: 12:06 03/24 11:45 Order name: Urine Dipstick-Ancillary (obtain specimen); Complete Time: 13:[address] [facility] 03/24 11:45 Order name: Seizure Precautions; Complete Time: 12:[address] [facility] 03/24 11:51 Order name: Labs - recollect needed: recollect blue top underfilled and green top eb hemolyzed; Complete Time: 13:11 EC:48 Rate is 89 beats/min. Rhythm is regular. QRS [facility] is Normal. MI interval is normal. QRS gabriella interval is normal. QT interval is normal. No Q waves. T waves are Normal. No ST changes noted. Clinical impression: Normal ECG and No evidence of ischemia. Interpreted by me. Reviewed by me. Administered Medications: 12:18 Drug: NS 0.9% 1000 ml Route: IV; Rate: 1 bolus; Site: right antecubital; sv 15:53 Follow up: Response: No adverse reaction; IV Status: Completed infusion; IV Intake: sv 1000ml 12:18 Drug: foLIC Acid 1 mg Route: IVPB; Site: right antecubital; sv 12:19 Follow up: Response: No adverse reaction; IV Status: Completed infusion sv 12:57 Drug: Keppra (levETIRAcetam) 1000 mg Route: IV; Rate: per protocol; Site: right sv antecubital; 13:12 Follow up: Response: No adverse reaction; IV Status: Completed infusion; IV Intake: sv 100ml 15:12 Drug: Rocephin (cefTRIAXone) 1 grams Route: IV; Rate: per protocol; Site: right sv antecubital; 15:14 Follow up: Response: No adverse reaction; IV Status: Completed infusion; IV Intake: 10mlsv 15:52 Not Given (Physician Discretion): Cipro (ciprofloxacin) 500 mg PO once sv 15:52 Drug: Cipro (ciprofloxacin) 400 mg Volume: 200 ml; Route: IVPB; Infused Over: 60 mins; sv Site: right antecubital; 16:58 Follow up: Response: No adverse reaction; IV Status: Completed infusion; IV Intake: sv 200ml Point of Care Testing: Blood Glucose: 11:28 Blood Glucose: 89 mg/dL; sv Ranges: Critical Glucose Levels:Adult <50 mg/dl or >400 mg/dl <40 mg/dl or >180 mg/dl Disposition: 03/24/21 15:10 Discharged to Home. Impression: Epilepsy and recurrent seizures, Weakness, Urinary tract infection, site not specified. - Condition is Stable. - Discharge Instructions: Seizure, Adult, Urinary Tract Infection, Adult, Weakness, Urinary Tract Infection, Adult, Gixr-jw-Bbcc, Seizure, Adult, Ciba-kc-Xszv, Weakness, Dqhl-jy-Cfbx. - Prescriptions for Depakote 500 mg Oral Tablet, Delayed Release (E.C.) - take 2 tablet by ORAL route every 12 hours; 60 tablet. Keppra 500 mg Oral Tablet - take 2 tablet by ORAL route every 12 hours; 60 tablet. Vitamin 27- 0.8 mg Oral Tablet - take 1 tablet by ORAL route once daily; 30 tablet. Cipro 250 mg Oral Tablet - take 1 tablet by ORAL route every 12 hours; 14 tablet. - SBAR form, Medication Reconciliation Form, Thank You Letter, Antibiotic Education, Prescription Opioid Use form. - Follow up: Private Physician; When: 2 - 3 days; Reason: Recheck today's complaints, Continuance of care, Re-evaluation by your physician. Follow up: Lorenzo Gomez; When: 2 - 3 days; Reason: Recheck today's complaints, Continuance of care, Re-evaluation by your physician. - Problem is new. - Symptoms have improved. 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 [facility] 17:32 15:10 03/24/2021 15:10 Discharged to Home. Impression: Epilepsy and recurrent seizures; hb Weakness; Urinary tract infection, site not specified. Condition is Stable. Discharge Instructions: Seizure, Adult, Weakness, Seizure, Adult, Bhyi-cv-Iwpb, Weakness, Mgch-th-Dsgw, Urinary Tract Infection, Adult, Urinary Tract Infection, Adult, Nmph-ph-Rplw. Prescriptions for Depakote 500 mg Oral Tablet, Delayed Release (E.C.) - take 2 tablet by ORAL route every 12 hours; 60 tablet, Keppra 500 mg Oral Tablet - take 2 tablet by ORAL route every 12 hours; 60 tablet, Vitamin 27-0.8 mg Oral Tablet - take 1 tablet by ORAL route once daily; 30 tablet, Cipro 250 mg Oral Tablet - take 1 tablet by ORAL route every 12 hours; 14 tablet. and Forms are SBAR form, Medication Reconciliation Form, Thank You Letter, Antibiotic Education, Prescription Opioid Use. Follow up: Private Physician; When: 2 - 3 days; Reason: Recheck today's complaints, Continuance of care, Re-evaluation by your physician. Follow up: Lorenzo Gomez; When: 2 - 3 days; Reason: Recheck today's complaints, Continuance of care, Re-evaluation by your physician. Problem is new. Symptoms have improved. gabriella
[2021-03-24] MEDS ORDERED: CEFTRIAXONE/SWI 1gm 1 GM/10 ML SYR ONE (15:25)
[2021-03-24] MEDS ORDERED: CIPROFLOXACIN 400mg IV 400 MG/200 ML BAG IV ONE (16:01)
[2021-03-24 16:13] LABS: Urine Blood 2+ (Negative); Urine Glucose NEGATIVE (Negative); Urine Protein 1+ (Negative); Urine pH 5.5 (5.0-7.0)
[2021-03-24] MEDS ORDERED: ACETAMINOPHEN 500 MG TAB ONE (17:07)
[2021-03-24 17:48] VITALS: BP 95/58; O2SAT 96
--- NOTE | 2021-03-25 07:58 | EKG ---
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
== END 2021-03-24 17:32 | disposition home or self-care (01) ==
LOC: ER 11:22
DX: G40.909 Epilepsy, unspecified, not intractable, without status epilepticus (principal); N39.0 Urinary tract infection, site not specified; R53.1 Weakness; I69.320 Aphasia following cerebral infarction; F41.9 Anxiety disorder, unspecified; I25.10 Atherosclerotic heart disease of native coronary artery without angina pectoris; I10 Essential (primary) hypertension; K58.9 Irritable bowel syndrome, unspecified; F79 Unspecified intellectual disabilities; F20.9 Schizophrenia, unspecified; E55.9 Vitamin D deficiency, unspecified; I69.391 Dysphagia following cerebral infarction; G47.00 Insomnia, unspecified
CPT/HCPCS: 96365; 96361; 93005; 87088; 85025; 87086; 80048; 36415; 85610; 80164; 85730; 87077; 87186; 81003; 83880; 70450; 71045; 70551; 96375; 99285; J1953; J0696; J7030; J0744

== ENCOUNTER 2021-04-28 15:42 | Inpatient (IN) | payer OTHER ==
--- OUTSIDE RECORDS SUMMARY | 2021-04-28 15:46 | XMS REPORT | Continuity of Care Document ---
:1965 Author Organization [facility] t Address [address] [place] [address] Care Team Providers Name Role Phone Sharpless [...] kes - ia ia 00:00: Medical 00 [place] Nonintract Nonintract Disease Active 2016-[address] able able 0-16 [facility] - generalize generalize 00:00: Me dical d d 00 [place] idiopathic idiopathic epilepsy epilepsy without without status status epilepticu epilepticu s s Leukocytos Leukocytos Disease Active 2016-[address] is is 0-16 [facility] - 00:00: Medical 00 [place] Encephalop Encephalop Disease Active 2016-[address] athy acute athy acute 0-15 [facility] kes - 00:00: Medical 00 Center Allergies, Adverse Reactions, Alerts Allergy Allergy Status Severity Reaction(s) Onset Inactive Treating Comm ents Source Name Type Date Date Clinician Aspirin Propensi Active Nausea And 2016-[address] [facility] [facility] to Vomiting 0-16 [facility] - adverse 00:00: Medical reaction 00 [place] s Penicill Propensi Active Rash 2016-[address] [facility] ty to 0-16 [facility] - adverse 00:00: Medical reaction 00 Center s Social History Social Habit Start Date Stop Date Quantity Comments Source Sex Assigned At [facility] Medications Ordered Filled Start Stop Current Ordering Indication Dosage Frequency Signature Comments Components Source Medication Medication Date Date Medication? Clinician (SIG) Name Name baclofen 2016-12 Yes muscle 20mg [id number] Take [address] (LIORESAL) 0-18 spasticity [id number] by mouth 3 [facility] - 20 MG 17:49: of spinal 3D (three) Medi david tablet 11 origin times Center daily. acetaminoph 2016-12 Yes pain 650mg Q.44499605 Take [address] en 0-18 [id number] mg by [facility] - (TYLENOL) 17:49: 3D mouth 3 Medic al 325 MG 11 (three) Center tablet times daily. benztropine 2016-12 Yes extrapyrami .5mg Q.5D Take 0.[address] [facility] (COGENTIN) 0-18 huy disease mg by L ukes - 0.5 MG 17:49: mouth 2 Medical tablet 11 (two) Center times daily. divalproex 2016-12 Yes epilepsy 500mg Q.40992430 Take [address] (DEPAKOTE) 0-18 [id number] mg by Catina kes - 250 MG [...] 17:49: cerebrovasc daily. Med ical tablet 11 [facility] accident cholecalcif 2016-12 Yes vitamin D 1000U [...] 1095) No growth in 5 days BLOOD [id number] 11:01:00 Test Item Value Reference Range Interpretation Comments CULTURE (BEAKER) (test No growth in 5 days code = 1095) URINE [id number] 11:15:00 Test Item Value Reference Range Interpretation Comments CULTURE (BEAKER) (test code = 1095) No growth [id number] 08:30:00 Test Item Value Reference Range Interpretation Comments AMMONIA (BEAKER) (test code = 348) 69 mol/L 18-72 CBC W/PLT COUNT & AUTO [id number] 07:44:00 Test Item Value Reference Range Interpretation [...] GRANULOCYTES-RELATIVE PERCENT (BEAKER) (test code = 2801) [id number] 07:09:00 Test Item Value Reference Range Interpretation Comments MAGNESIUM (BEAKER) (test code = 1.7 mg/dL 1.6-2.6 627) BASIC METABOLIC [id number] 07:09:00 Test Item Value Reference Range Interpretation [...] FOR DIALYSIS PATIEN TS. VALPROIC ACID LEVEL, [id number] 18:11:00 Test Item Value Reference Range Interpretation Comments VALPROIC ACID TOTAL (BEAKER) (test 94 ug/mL 50-100 code = 924) Therapeutic range for some clinical conditions may be >100 ug/mLBASIC METABOLIC [id number] 07:11:00 Test Item Value Reference Range Interpretation [...] S NOT APPLICABLE FOR DIALYSIS PATIEN TS. [id number] 07:11:00 Test Item Value Reference Range Interpretation Comments MAGNESIUM (BEAKER) 1.6 mg/dL 1.6-2.6 Specimen slightly (test code = 627) hemolyzed LACTIC ACID, VENOUS, WHOLE [id number] 07:03:00 Test Item Value Reference Range Interpretation Comments LACTATE BLOOD VENOUS 1.1 mmol/L 0.5-2.2 Specime n moderately (2) (BEAKER) (test hemolyzed code = 1992) Effective 04/04/2016: Units/Reference Range ChangeNew: 0.5-2.2 mmol/L Previous: 5-20 mg/dLCBC W/PLT COUNT & AUTO [id number] 06:58:00 Test Item Value Reference Range Interpretation [...] (test code = 2801) EEG AWAKE AND [id number] 15:16:00Reason for exam:->abnormal movements, AMSDATE OF TEST: 09/16/2017 DATE OF REPORT 09/16/2017 ACC: [id number] Start time: 10:52 Stoptime: 11:13 ICD-10: R41.82 CPT Code: 78144 HISTORY: 52 year old woman with prior [...] Parisa Muller MD Neurophysiology Fellow Tai Jackson M.D.,[facility] Professor of Neurology Director, [facility] Head, [facility] ophysiology Lab CBC W/PLT COUNT & AUTO [id number] 12:02:00 Test Item Value Reference Range Interpretation [...] (test code = Normal 762) URINALYSIS W/ [id number] 11:57:00 Test Item Value Reference Range Interpretation [...] 2795) Catheter RAD, CHEST, 1 VIEW, NON [id number] 10:55:00Reason for exam:- >pneumoniaShould this be performed [...] MDReport Verified Date/Time: 09/16/2017 10:55:21 Reading Location: [facility] Radiology Reading Room BASIC METABOLIC [id number] 06:30:00 Test Item Value Reference Range Interpretation [...]
[2021-04-28] MEDS ORDERED: ACETAMINOPHEN 650MG/RECT SUPP PR ONE (16:23)
[2021-04-28] MEDS ORDERED: NA CHLORIDE 0.9% 2,000 ML ONE (16:23)
[2021-04-28] MEDS ORDERED: CEFEPIME/SWI 1gm 10 ML ONE (16:24)
[2021-04-28 16:30] LABS: Absolute Lymphocytes (CBC) 1.4 K/uL (0.7-4.9); Basophils % 0.2 % (0-1.3); Hematocrit 34.7 % (36.0-45.0); Lymphocytes % 19.2 % (15.3-44.8); MPV 9.3 fL (7.6-11.3); RBC Red Blood Cell Count 3.48 M/uL (3.86-4.86)
[2021-04-28 16:33] LABS: Protime INR 1.03
--- NOTE | 2021-04-28 16:34 | RAD REPORT ---
EXAM DESCRIPTION: Carlos Single View04/28/2021 4:23 pm CLINICAL HISTORY: Shortness of breath COMPARISON: March 2021 FINDINGS: The lungs appear clear of acute infiltrate. The heart is normal size IMPRESSION: No acute abnormalities displayed
[2021-04-28 16:44] LABS: ALT/SGPT 13 U/L (12-78); AST/SGOT 16 U/L (15-37); Albumin 2.6 g/dL (3.4-5.0); Alkaline Phosphatase 53 U/L (45-117); BUN Blood Urea Nitrogen 10 mg/dL (7-18); Bicarbonate 16 mmol/L (21-32); Bilirubin Direct < 0.1 mg/dL (0-0.2); Bilirubin Total 0.2 mg/dL (0.2-1.0); Creatine Phosphokinase 123 U/L (26-192); Glucose Level 116 mg/dL (74-106); Lipase 45 U/L (73-393); NT PRO-BNP 783 pg/mL (<125); Potassium 4.1 mmol/L (3.5-5.1); Protein, Total 6.2 g/dL (6.4-8.2); Sodium Level 140 mmol/L (136-145); Troponin (Emerg Dept Use Only) 0.02 ng/mL (0.0-0.045)
--- NOTE | 2021-04-28 16:51 | RAD REPORT ---
EXAM DESCRIPTION: CT - Head Brain Wo Cont - 04/28/2021 4:42 pm CLINICAL HISTORY: Alteration of awareness/confusion COMPARISON: March 2021 TECHNIQUE: Computed axial tomography of the head was obtained. IV contrast was not requested. All CT scans are performed using dose optimization technique as appropriate and may include automated exposure control or mA/KV adjustment according to patient size. FINDINGS: An intracranial bleed is not seen . The ventricles are normal in caliber. No extra-axial fluid collection is noted. Bilateral old cerebral infarctions. Fluid within the sinuses/ mastoids is not seen. IMPRESSION: No acute intracranial abnormality is seen.
[2021-04-28] MEDS ORDERED: VANCOMYCIN/NS 1 gm 1 GM/250 ML BAG IVPB ONE (17:00)
[2021-04-28 17:32] LABS: Urine Blood 2+ (Negative); Urine Glucose Negative (Negative); Urine Protein 1+ (Negative); Urine Specific Gravity >=1.030 (1.005-1.030); Urine pH 5.5 (5.0-7.0)
--- NOTE | 2021-04-28 18:01 | ER ---
Nurse's Notes [facility] Name: Grace Guzman Age: 56 yrs Sex: Female : 1965 Arrival Date: 04/28/2021 Time: 15:44 Bed 3 Private MD: Diagnosis: Severe sepsis;Epilepsy and recurrent seizures Presentation: 04/28 15:44 Acuity: RODDY 2 ca1 15:45 Method Of Arrival: EMS: [facility] ca1 15:45 Coronavirus screen: Client denies travel out of the [place] in the last 14 days. fever, ca1 Client presents with at least one sign or symptom that may indicate coronavirus-19. Standard/surgical mask placed on the client. Provider contacted for isolation considerations. 15:45 Ebola Screen: Patient negative for fever greater than or equal to 101.5 degrees ca1 Fahrenheit, and additional compatible Ebola Virus Disease symptoms Patient denies exposure to infectious person. Patient denies travel to an Ebola-affected area in the 21 days before illness onset. No symptoms or risks identified at this time. Initial Sepsis Screen: Does the patient meet any 2 criteria? RR > 20 per min. Temp <36.0*C (96.8*F)) or > 38.3*C (100.9*F). HR > 90 bpm. Does the patient have a suspected source of infection? Yes: Dysuria/Frequency/Urgency/UTI. Risk Assessment: Do you want to hurt yourself or someone else? Unable to obtain. Onset of symptoms was April 28, 2021. 15:45 Chief complaint: EMS states: Initially toned in for cardiac arrest, upon arrival on ca1 scene, pt open eyes and looked at me when I called her name. [facility] reports she had been seizing for 30 minutes prior to arrival on scene. Reports HX of seizure, but this time "seizure does not look like pt's normal seizures". Was seizing with EMS for approx 10 minutes, VERSED 5 MG given via nasal spray around 1520. Pt Febrile on scene at 101.5F, cold packs applied. Reports HX of frequent UTIs. Reports normally GCS 15, A\\T\\Ox3. BGL 117. HR 116, BP 100/54. Triage Assessment: 15:55 General: Appears in no apparent distress. uncomfortable, Behavior is drowsy. Pain: ca1 Denies pain. EENT:. Neuro: Level of Consciousness is lethargic, Oriented to none. Cardiovascular: Heart tones S1 S2 present Capillary refill < 3 seconds Patient's skin is warm and dry. Rhythm is sinus tachycardia. Respiratory: Airway is patent Respiratory effort is even, unlabored, Respiratory pattern is regular, symmetrical, Breath sounds are clear bilaterally. GI: Abdomen is flat, non-distended, Bowel sounds present X 4 quads. Abd is soft and non tender X 4 quads. : Urine is clear. Derm: Skin is intact, is healthy with good turgor, Skin is pink, warm \\T\\ dry. Musculoskeletal: Capillary refill is > 3 seconds, contractures noted on upper and lower extremities. Historical: - Allergies: 17:43 Aspirin; ca1 17:43 PENICILLINS; ca1 - PMHx: 17:43 Anemia; Anxiety; Aphasia; CAD; cognitive communication deficit; Contracture; CVA; ca1 DYSPHAGIA; epilepsy; ESBL Resistance; Hypertension; insomnia; ibs; MRSA foot; muscle wasting and atrophy; Schizophrenia; Seizures; vitamin d deficiency; MR; - Immunization history:: Adult Immunizations unknown. - Social history:: Smoking status: unknown. Screenin:55 Abuse screen: Denies threats or abuse. Denies injuries from another. Nutritional ca1 screening: No deficits noted. Tuberculosis screening: No symptoms or risk factors identified. Fall Risk Secondary diagnosis (15 points) CVA, IV access (20 points). Ambulatory Aid- None/Bed Rest/Nurse Assist (0 pts). Total De [place] Cruz Fall Scale indicates High Risk Score (45 or more points). Fall prevention measures have been instituted. Side Rails Up X 2 Frequent Obs/Assessments Occuring As available patient and family educated on Fall Prevention Program and Strategies. Assessment: 16:30 Reassessment: 1630 curb and gutter laborer at bedside to draw cultures, unsuccessful. States, "she'll ca1 come back or send someone else". 16:30 Reassessment: Patient appears in no apparent distress at this time. No changes from ca1 previously documented assessment. Patient and/or family updated on plan of care and expected duration. Pain level reassessed. 17:25 Reassessment: Patient appears in no apparent distress at this time. No changes from ca1 previously documented assessment. Patient and/or family updated on plan of care and expected duration. Pain level reassessed. Cultures still nt drawn. 18:55 Reassessment: Patient appears in no apparent distress at this time. No changes from ca1 previously documented assessment. Patient and/or family updated on plan of care and expected duration. Pain level reassessed. 19:26 Reassessment: Patient appears in no apparent distress at this time. No changes from ca1 previously documented assessment. Patient and/or family updated on plan of care and expected duration. Pain level reassessed. Vital Signs: 15:45 BP 103 / 57; Pulse 111; Resp 23; Temp 100.5(O); Pulse Ox 97% on R/A; Weight 58.97 kg ca1 (R); 16:30 BP 99 / 63; Pulse 109; Resp 15 S; Pulse Ox 97% on R/A; ca1 17:58 Temp 99.7(C); ca1 18:00 Pulse 99; Resp 17 S; Pulse Ox 98% on R/A; ca1 18:00 BP 110 / 56; ca1 18:55 BP 101 / 63; Pulse 94; Resp 15 S; Pulse Ox 94% on R/A; ca1 19:26 BP 111 / 59; Pulse 93; Resp 17 S; Temp 99.4(C); Pulse Ox 100% on R/A; ca1 19:59 BP 108 / 66; Pulse 94; Resp 15 S; Pulse Ox 95% on R/A; ca1 ED Course: 15:44 Patient arrived in ED. bp 15:44 Triage completed. bp 15:44 Raquel Cantu, RN is Primary Nurse. ca1 15:45 No provider procedures requiring assistance completed. Maintain EMS IV. Dressing ca1 intact. Good blood return noted. Site clean \\T\\ dry. Gauge \\T\\ site: 20G. 15:45 Patient has correct armband on for positive identification. Placed in gown. Bed in low ca1 position. Call light in reach. Side rails up X2. Seizure precautions initiated. Pillow given. conveyor monitor on. Pulse ox on. NIBP on. 15:45 Arm band placed on. ca1 15:47 Alexei Betancourt PA is PHCP. jr8 15:47 Antelmo Thakkar MD is Attending Physician. jr8 16:22 Chest Single View XRAY In Process Unspecified. EDMS 16:42 CT Head Brain wo Cont In Process Unspecified. EDMS 17:19 Mosquera cath inserted, using sterile technique, 16 Fr., by me, balloon inflated, to ca1 gravity drainage, urine specimen collected. returned clear yellow urine. Patient tolerated well. 17:35 Depakote Sent. mh5 17:35 Inserted saline lock: 22 gauge in left forearm, using aseptic technique. Blood ca1 collected. 17:35 First set of blood cultures drawn by me. ca1 17:36 Blood Culture Sent. mh5 17:36 Basic Metabolic Panel Sent. mh5 17:36 Blood Culture Adult (2) Sent. mh5 17:36 CBC with Diff Sent. mh5 17:36 CPK Sent. mh5 17:36 Lactate Sent. 5 17:37 LFT's Sent. mh5 17:37 Urine Microscopic Only Sent. mh5 17:37 Initial lab(s) drawn, by me, sent to lab. Urine collected: Mosquera catheter specimen, 5 cloudy. Mosquera cath inserted, using sterile technique, 16 Fr., by ED staff, urine specimen collected. 17:58 Derian Yan DO is Hospitalizing Provider. jr8 17:58 Second set of blood cultures drawn by me. ca1 19:10 Lab(s) recollected, by me, sent to lab. 5 19:26 Patient admitted, IV remains in place. ca1 Administered Medications: 16:13 Drug: Tylenol Suppository 650 mg Route: MI; ca1 17:58 Follow up: Response: No adverse reaction; Temperature is decreased ca1 16:13 Drug: NS 0.9% (30 ml/kg) 30 ml/kg Route: IV; Rate: bolus; Site: right antecubital; ca1 19:14 Follow up: IV Status: Completed infusion; IV Intake: 1750ml ca1 17:58 Drug: Cefepime 1 grams Route: IVPB; Rate: 200 ml/hr; Infused Over: 30 mins; Site: left ca1 forearm; 18:30 Follow up: Response: No adverse reaction; IV Status: Completed infusion ca1 18:10 Drug: vancoMYCIN 1 grams Route: IVPB; Infused Over: 2 hrs; Site: left forearm; ca1 19:27 Follow up: Response: No adverse reaction; IV Status: Infusion continued upon admission ca1 18:33 Drug: Keppra (levETIRAcetam) 1000 mg Route: IV; Rate: calculated rate; Site: right ca1 antecubital; 19:23 Follow up: Response: No adverse reaction; IV Status: Completed infusion; IV Intake: ca1 100ml 19:23 Drug: Meropenem 1 grams Route: IV; Rate: calculated rate; Site: right antecubital; ca1 19:48 Follow up: Response: No adverse reaction; IV Status: Infusion continued upon admission ca1 Intake: 19:14 IV: 1750ml; Total: 1750ml. ca1 19:23 IV: 100ml; Total: 1850ml. ca1 Outcome: 17:59 Decision to Hospitalize by Provider. josette 19:47 Admitted to Med/surg accompanied by tech, via stretcher, room 201, with chart, Report ca1 called to ADELFO Calles 19:47 Condition: stable 19:47 Instructed on the need for admit. 19:59 Patient left the ED. ca1 Signatures: Dispatcher [employer] EDMS Alexei Betancourt PA PA jr8 Martinez, Maria [facility] Holden Engle, RN RN bp Raquel Cantu RN RN ca1 Corrections: (The following items were deleted from the chart) 15:45 15:44 Acuity: RODDY 2 bp [facility] 17:44 17:37 Patient has correct armband on for positive identification. Placed in gown. Bed ca1 in low position. Call light in reach. Side rails up X2. Seizure precautions initiated. [facility] 17:44 17:37 Pillow given. [place] [id number] 17:44 17:37 conveyor monitor on. Pulse ox on. NIBP on. [place] [id number]
--- NOTE | 2021-04-28 18:01 | EDPHYS ---
Physician Documentation [facility] Name: Grace Guzman Age: 56 yrs Sex: Female : 1965 Arrival Date: 04/28/2021 Time: 15:44 Bed 3 Private MD: ED Physician Antelmo Thakkar HPI: 04/28 17:51 This 56 yrs old Female presents to ER via EMS with complaints of Fever, jr8 seizure. 17:51 The patient reports fever, with an emergency department temperature of 100.5 degrees jr8 Fahrenheit. Onset: The symptoms/episode began/occurred acutely, today. Modifying factors: there are no obvious modifying factors. Associated signs and symptoms: Pertinent positives: seizures. Severity of symptoms: At their worst the symptoms were moderate in the emergency department the symptoms have improved mildly. It is unknown whether or not the patient has had similar symptoms in the past. It is unknown whether or not the patient has recently seen a physician. EMS called out to [place] patient for status seizure. Was given IN versed which abated the seizure prior to arrival. Patient had fever documented per EMS with a history of UTIs. Stated that patient normally is alert and oriented to person, place, time, event. Patient currently postictal upon arrival. Historical: - Allergies: 17:43 Aspirin; ca1 17:43 PENICILLINS; ca1 - PMHx: 17:43 Anemia; Anxiety; Aphasia; CAD; cognitive communication deficit; Contracture; CVA; ca1 DYSPHAGIA; epilepsy; ESBL Resistance; Hypertension; insomnia; ibs; MRSA foot; muscle wasting and atrophy; Schizophrenia; Seizures; vitamin d deficiency; MR; - Immunization history:: Adult Immunizations unknown. - Social history:: Smoking status: unknown. ROS: 17:51 Unable to obtain ROS due to altered mental status. jr8 Exam: 17:51 Eyes: Periorbital structures: appear normal, Pupils: equal, round, and reactive to jr8 light and accomodation, Extraocular movements: intact throughout, Conjunctiva: normal, Sclera: no appreciated abnormality, Anterior chamber: normal, Lids and lashes: appear normal. 17:51 ENT: Mouth: Lips: dry, Oral mucosa: dry. 17:51 Neck: Thyroid: appears normal, Trachea: is midline with no obvious abnormalities, ROM/movement: is normal, Lymph nodes: no appreciated lymphadenopathy. 17:51 Cardiovascular: Rate: tachycardic, Rhythm: regular, Pulses: Pulses are 2+ in right radial artery and left radial artery. Heart sounds: normal, normal S1and S2, Edema: is not appreciated. 17:51 Respiratory: the patient does not display signs of respiratory distress, Respirations: normal, Breath sounds: are clear throughout, Respiratory rate: 14 17:51 Abdomen/GI: Inspection: scar(s), are noted in the mid abdominal, Bowel sounds: active, Palpation: soft, in all quadrants, no grimace with palpation. 17:51 Skin: Exam negative for erythema rash. 17:51 Neuro: Orientation: Not oriented to person, place, time, situation, Mentation: confused, unable to follow commands, sleepy, seizure activity, is not currently displayed, but the patient is post-ictal, Abnormal movements: there are no abnormal movements. Vital Signs: 15:45 BP 103 / 57; Pulse 111; Resp 23; Temp 100.5(O); Pulse Ox 97% on R/A; Weight 58.97 kg ca1 (R); 16:30 BP 99 / 63; Pulse 109; Resp 15 S; Pulse Ox 97% on R/A; ca1 17:58 Temp 99.7(C); ca1 18:00 Pulse 99; Resp 17 S; Pulse Ox 98% on R/A; ca1 18:00 BP 110 / 56; ca1 18:55 BP 101 / 63; Pulse 94; Resp 15 S; Pulse Ox 94% on R/A; ca1 19:26 BP 111 / 59; Pulse 93; Resp 17 S; Temp 99.4(C); Pulse Ox 100% on R/A; ca1 19:59 BP 108 / 66; Pulse 94; Resp 15 S; Pulse Ox 95% on R/A; ca1 MDM: 15:47 Patient medically screened. 8 17:57 Data reviewed: vital signs, nurses notes, lab test result(s), EKG, radiologic studies, jr CT scan, plain films. Data interpreted: Pulse oximetry: on room air is 97 %. Interpretation: normal. Counseling: I had a detailed discussion with the patient and/or guardian regarding: the historical points, exam findings, and any diagnostic results supporting the discharge/admit diagnosis, lab results, radiology results, the need for further work-up and treatment in the hospital. 04/28 15:48 Order name: Basic Metabolic Panel [facility] 04/28 15:48 Order name: Blood Culture Adult (2) [facility] 04/28 15:48 Order name: CBC with Diff [facility] 04/28 15:48 Order name: CPK [facility] 04/28 15:48 Order name: Lactate [facility] 04/28 15:48 Order name: LFT's [facility] 04/28 15:48 Order name: Lipase; Complete Time: 16:52 [facility] 04/28 15:48 Order name: Procalcitonin; Complete Time: 17:25 [facility] 04/28 15:48 Order name: Protime (+inr); Complete Time: 16:42 [facility] 04/28 15:48 Order name: Ptt, Activated; Complete Time: 16:42 [facility] 04/28 15:48 Order name: Troponin (emerg Dept Use Only); Complete Time: 16:52 [facility] 04/28 15:48 Order name: Urine Microscopic Only; Complete Time: 18:11 [facility] 04/28 15:48 Order name: BNP; Complete Time: 16:52 [facility] 04/28 15:48 Order name: Chest Single View XRAY; Complete Time: 16:42 [facility] 04/28 15:49 Order name: Basic Metabolic Panel; Complete Time: 16:52 [facility] 04/28 15:49 Order name: Blood Culture [facility] 04/28 15:49 Order name: CBC with Automated Diff; Complete Time: 16:42 [facility] 04/28 15:49 Order name: Creatine Phosphokinase; Complete Time: 16:52 [facility] 04/28 15:49 Order name: Lactate; Complete Time: 16:52 [facility] 04/28 15:49 Order name: Liver (Hepatic) Function; Complete Time: 16:52 [facility] 04/28 15:56 Order name: Depakote [facility] 04/28 15:57 Order name: Valproic Acid (Depakene) Level; Complete Time: 16:42 [facility] 04/28 15:57 Order name: CT Head Brain wo Cont; Complete Time: 16:52 [facility] 04/28 16:03 Order name: Glucose, Ancillary Testing; Complete Time: 16:42 [facility] 04/28 17:08 Order name: SARS-COV-2 RT PCR; Complete Time: 17:25 [facility] 04/28 17:32 Order name: Urine Dipstick-Ancillary; Complete Time: 17:50 EDCT 04/28 18:07 Order name: Urine Culture [facility] 04/28 15:48 Order name: Cath; Complete Time: 17:35 [facility] 04/28 15:48 Order name: Accucheck; Complete Time: 16:00 04/28 15:48 Order name: Cardiac monitoring; Complete Time: 16:00 04/28 15:48 Order name: EKG - Nurse/Tech; Complete Time: 16:00 04/28 15:48 Order name: IV Saline Lock - Large Bore; Complete Time: 16:00 04/28 15:48 Order name: Labs collected and sent; Complete Time: 16:00 [facility] 04/28 15:48 Order name: O2 Per Protocol; Complete Time: 16:00 04/28 15:48 Order name: O2 Sat Monitoring; Complete Time: 16:00 04/28 15:48 Order name: Urine Dipstick-Ancillary (obtain specimen); Complete Time: 17:36 04/28 15:56 Order name: Mosquera; Complete Time: 17:35 Administered Medications: 16:13 Drug: Tylenol Suppository 650 mg Route: [place]; ca1 17:58 Follow up: Response: No adverse reaction; Temperature is decreased ca1 16:13 Drug: NS 0.9% (30 ml/kg) 30 ml/kg Route: IV; Rate: bolus; Site: right antecubital; ca1 19:14 Follow up: IV Status: Completed infusion; IV Intake: 1750ml ca1 17:58 Drug: Cefepime 1 grams Route: IVPB; Rate: 200 ml/hr; Infused Over: 30 mins; Site: left ca1 forearm; 18:30 Follow up: Response: No adverse reaction; IV Status: Completed infusion ca1 18:10 Drug: vancoMYCIN 1 grams Route: IVPB; Infused Over: 2 hrs; Site: left forearm; ca1 19:27 Follow up: Response: No adverse reaction; IV Status: Infusion continued upon admission ca1 18:33 Drug: Keppra (levETIRAcetam) 1000 mg Route: IV; Rate: calculated rate; Site: right ca1 antecubital; 19:23 Follow up: Response: No adverse reaction; IV Status: Completed infusion; IV Intake: ca1 100ml 19:23 Drug: Meropenem 1 grams Route: IV; Rate: calculated rate; Site: right antecubital; ca1 19:48 Follow up: Response: No adverse reaction; IV Status: Infusion continued upon admission ca1 Disposition: 04/29 09:52 Co-signature as Attending Physician, Antelmo Thakkar MD I agree with the assessment and kdr plan of care. Disposition: 04/28/21 17:59 Hospitalization ordered by Derian Yan for Inpatient Admission. Preliminary diagnosis are Severe sepsis, Epilepsy and recurrent seizures. - Bed requested for Telemetry/MedSurg (Inpatient). - Status is Inpatient Admission. ca1 - Condition is Fair. - Problem is new. - Symptoms have improved. Critical care time excluding procedures: 04/28 17:57 Critical care time: Bedside Care: 20 minutes, Consultation: 10 minutes. Total time: 30 jr8 minutes Signatures: Dispatcher [employer] EDCT Antelmo Thakkar MD MD [facility] Alexei Betancourt PA PA jr8 Moses, Tu, CLASS B TRUCK DRIVER-C CLASS B TRUCK DRIVER-Cla1 Gely Joseph RN RN Raquel Cantu RN RN ca1 Corrections: (The following items were deleted from the chart) 16:26 15:49 CORONAVIRUS+MR.LAB.BRZ ordered. [facility] EDCT 19:20 17:59 Hospitalization Ordered by Derian Yan DO for Inpatient Admission. Preliminary cg diagnosis is Severe sepsis; Epilepsy and recurrent seizures. Bed requested for Telemetry/MedSurg (Inpatient). Status is Inpatient Admission. Condition is Fair. Problem is new. Symptoms have improved. [facility] 19:59 19:20 04/28/2021 17:59 Hospitalization Ordered by Derian Yan DO for Inpatient ca1 Admission. Preliminary diagnosis is Severe sepsis; Epilepsy and recurrent seizures. Bed requested for Telemetry/MedSurg (Inpatient). Status is Inpatient Admission. Condition is Fair. Problem is new. Symptoms have improved. cg
[2021-04-28 18:06] LABS: Urine Bacteria >50 /HPF (<20); Urine RBC <5 /HPF (NONE SEEN)
[2021-04-28] MEDS ORDERED: levETIRAcetam 1,000 MG in NA CHLORIDE 0.9% 100 ML IV ONE (18:15)
--- NOTE | 2021-04-28 18:44 | P.HP ---
Certification for Inpatient Patient admitted to: Inpatient Patient will require the following post-hospital care: None Practitioner: I am a practitioner with admitting privileges, knowledge of patient current condition, hospital course, and medical plan of care. Services: Services provided to patient in accordance with Admission requirements found in Title 42 Section 412.3 of the Code of Federal Regulations Patient History Date of Service: 04/28/21 Primary Care Provider: longterm doctor Reason for admission: UTI, severe sepsis, seizure History of Present Illness: 56-year-old female history of CVA, epilepsy, mental retardation, schizophrenia, history of urinary tract infections presents emergency department for altered mental status. Patient stays at [facility], EMS was called out for cardiac arrest, upon EMS arrival patient was awake, speaking with them, no CPR was performed, patient then proceeded to have a seizure and was treated with Versed with resolution of seizure. Patient was evaluated in the emergency department, labs significant for white blood cell count 7.5 hemoglobin 11.5 hematocrit 34.7 chloride 108 to 216 lactic acid 10.7 pro calcitonin 0.06 urinalysis nitrite negative leukocyte positive greater than 50 bacteria on microscopic analysis. Patient blood pressure soft at this time, receive sepsis fluid bolus in the emergency department, blood pressure has improved mildly, ED provider wishes to admit for UTI, severe sepsis, seizure. Allergies aspirin Allergy (Unknown, Verified 06/14/20 21:51) Unknown Penicillins Allergy (Verified 06/14/20 21:51) Unknown Home Medications: Acetaminophen 650 mg PO TID PRN MDD 3 grams 06/14/20 Acetaminophen [Tylenol Extra Strength] 1 tab PO DAILY 06/14/20 Atorvastatin Calcium [Lipitor*] 40 mg PO BEDTIME 06/14/20 Buspirone HCl [Buspar] 20 mg PO BID 06/14/20 Cholecalciferol (Vitamin D3) [Vitamin D3] 1,000 unit PO DAILY 06/14/20 Clopidogrel Bisulfate [Plavix*] 1 tab PO DAILY 06/14/20 Dextran 70/Hypromellose [Artificial Tears Drops] 15 ml OP QID 06/14/20 Divalproex Sodium [Depakote ER] 1,000 mg PO BID 06/14/20 Docusate Sodium 100 mg PO BID 06/14/20 Fluticasone [Flonase 50MCG Nasal [place]*] 2 sprays IH BID 06/14/20 Loratadine [Claritin*] 10 mg PO DAILY 06/14/20 Melatonin 5 mg PO BEDTIME 06/14/20 Risperidone [Risperdal] 2 mg PO BID 06/14/20 levETIRAcetam [Keppra*] 1,000 mg PO Q12H 06/14/20 Baclofen [Lioresal*] 10 mg PO TID #90 tab 08/04/20 - Past Medical/Surgical History Diabetic: No -: Schizophrenia -: History of CVA -: 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 -: CAD -: MR -: UTI-ESBL -: Epilepsy/seizure disorder Past Surgical History: Unable to obtain Psychosocial/ Personal History: Patient from long term - Family History Father Notes: unable to recall - Social History Smoking Status: Unknown if ever smoked Alcohol use: No CD- Drugs: No Caffeine use: Yes Place of Residence: Home Review of Systems is unable to be obtained Physical Examination - Physical Exam General: Alert, In no apparent distress, Oriented x1 HEENT: Atraumatic, Normocephalic, Other (Mucous membranes dry) Neck: Supple Respiratory: Diminished (Bilaterally) Cardiovascular: Regular rate/rhythm, Normal S1 S2 Capillary refill: <2 Seconds Gastrointestinal: Normal bowel sounds, Soft and benign, No tenderness, No masses, No rebound, No guarding Musculoskeletal: Contractures (Lower extremities contracted bilaterally) Integumentary: No tenderness/swelling, No erythema, No warmth Neurological: Normal gait (Bed-bound), Normal speech, Normal strength at 5/5 x4 extr (Lowers extremities contracted) - Studies Laboratory Data (last 24 hrs) 04/28/21 16:08: PT 11.9, INR 1.03, APTT 29.2 04/28/21 16:08: WBC 7.50, Hgb 11.5 L, Hct 34.7 L, Plt Count 283 04/28/21 16:08: Sodium 140, Potassium 4.1, BUN 10, Creatinine 0.81, Glucose 116 H, Total Bilirubin 0.2, AST 16, ALT 13, Alkaline Phosphatase 53, Lipase 45 L Assessment and Plan - Plan Assessment Severe sepsis secondary to UTI-likely ESBL Seizure-history of epilepsy History of CVA with contracted lower extremities Schizophrenia/MR Plan Severe sepsis secondary to UTI-likely ESBL: Patient with previous ESBL UTI sensitive to meropenem, will continue with meropenem at this time. Lactate level significantly elevated around 10, could also be related to seizure. Will continue with IV fluids and trend lactate level, patient did receive sepsis bolus in the emergency department, received cefepime and meropenem in the emergency department. Patient only mildly tachycardic with heart rate around 90, blood pressure around 100 systolic. Will monitor vital signs closely. Patient will likely need PICC line, prolonged IV antibiotics. DVT prophylaxis Lovenox 40 mg subcu once daily. Seizure-history of epilepsy: Patient had seizure at long term, will place seizure precautions and continue patient's home medications, Depakote level pending. History of CVA with contracted lower extremities: Will continue with scan precautions, wound healing consult. Aspiration precautions. Will continue long term diet after swallow screen. Patient without PEG tube, apparently is able to swallow well. Schizophrenia/MR: Obtain and continue home medications. Discharge Plan: Home Plan to discharge in: 48 Hours - Advance Directives Does patient have a Living Will: No Does patient have a Durable POA for Healthcare: No - Code Status/Comfort Care Code Status Assessed: Yes (Full code) Critical Care: No Time Spent Managing Pts Care (In Minutes): 55
[2021-04-28] MEDS ORDERED: Meropenem 1 GM/100 ML BAG ONE ×2 (19:34→23:41)
--- NOTE | 2021-04-28 20:28 | P.INFCA ---
Sepsis Focused Assessment - Focused Assessment Complete? Sepsis Focused Assessment Completed?: Yes - Sepsis Screen Result Severe Sepsis: Positive - Evaluation Current stage of sepsis: Severe sepsis - Vital Signs Reviewed: Yes Heart rate: 94 Blood Pressure: 108/66 Respiratory Rate: 15 - Examination Date exam was performed: 04/28/21 Time exam was performed: 20:00 Heart: Regular rate/rhythm Lungs: Clear bilaterally Peripheral pulses: 3+ Normal Peripheral pulse location: Radial Capillary refill: <2 Seconds Skin examination: Normal turgor
[2021-04-28] MEDS ORDERED: ONDANSETRON 4 MG/2 ML VIAL IV PRN (20:44)
[2021-04-28] MEDS: NACHLORIDE 0.45% 1,000 ML IV SCH (21:36)
[2021-04-29 00:11] VITALS: BMI 17.5
[2021-04-29] MEDS ORDERED: Meropenem 1 GM/100 ML BAG IV SCH (01:00)
[2021-04-29] MEDS ORDERED: Meropenem 1000 MG/VIAL IV SCH (01:00)
[2021-04-29] MEDS ORDERED: DIPHENHYDRAMINE 25 MG TAB/CAP PO PRN (05:14)
[2021-04-29] MEDS: NACHLORIDE 0.45% 1,000 ML IV SCH ×2 (05:34→17:48)
[2021-04-29 05:58] LABS: Basophils % 0.4 % (0-1.3); Hematocrit 33.2 % (36.0-45.0); Lymphocytes % 26.1 % (15.3-44.8); MPV 8.8 fL (7.6-11.3); RBC Red Blood Cell Count 3.36 M/uL (3.86-4.86)
[2021-04-29 06:23] LABS: ALT/SGPT 14 U/L (12-78); AST/SGOT 24 U/L (15-37); Albumin 2.5 g/dL (3.4-5.0); Alkaline Phosphatase 49 U/L (45-117); BUN Blood Urea Nitrogen 5 mg/dL (7-18); Bicarbonate 25 mmol/L (21-32); Bilirubin Total 0.4 mg/dL (0.2-1.0); Glucose Level 88 mg/dL (74-106); Magnesium 1.9 mg/dL (1.8-2.4); Potassium 3.6 mmol/L (3.5-5.1); Protein, Total 5.9 g/dL (6.4-8.2); Sodium Level 140 mmol/L (136-145)
[2021-04-29] MEDS ORDERED: NA CHLORIDE 0.9% 500 ML IV ONE (08:49)
[2021-04-29] MEDS: BUSPIRONE HCL 5 MG TABLET PO SCH ×2 (09:00→21:07)
[2021-04-29] MEDS: Meropenem 1,000 MG in NA CHLORIDE 0.9% 100 ML IV SCH ×2 (09:00→18:10)
[2021-04-29] MEDS: LACTULOSE 20 GM/30 ML UCUP PO SCH ×2 (09:00)
[2021-04-29] MEDS: BACLOFEN 10 MG TAB PO SCH ×3 (09:00→21:07)
[2021-04-29] MEDS: POLYVINYL ALCOHOL 1.4% 15 ML EACH EYE SCH ×4 (09:00→21:10)
[2021-04-29] MEDS: RISPERIDONE 1 MG TABLET PO SCH ×2 (09:00→21:08)
[2021-04-29] MEDS: POLYETHYL GLY 3350 17 GM/DOSE PO SCH (09:00)
[2021-04-29] MEDS: ENOXAPARIN 40 MG/0.4 ML SQ SCH (09:00)
[2021-04-29] MEDS: VITAMIN D 1000 UNIT TAB PO SCH (09:00)
[2021-04-29] MEDS: DOCUSATE NA 100 MG CAP PO SCH ×2 (09:00→21:07)
[2021-04-29] MEDS ORDERED: POTASSIUM 25 MEQ EFFERV TAB PO ONE (09:00)
[2021-04-29] MEDS: LORATADINE 10 MG TAB PO SCH (09:00)
[2021-04-29] MEDS: DIVALPROEX ER 250 MG TAB PO SCH ×2 (09:00→21:10)
[2021-04-29] MEDS: levETIRAcetam 500 MG TAB PO SCH ×2 (09:00→21:08)
[2021-04-29] MEDS: MULTIVITAMINS 5 ML ORAL SYR PO SCH (09:00)
--- NOTE | 2021-04-29 12:23 | P.PN ---
Subjective Date of Service: 04/29/21 Primary Care Provider: detention doctor Chief Complaint: UTI, severe sepsis, seizure Subjective: Improving, Doing well Physical Examination - Vital Signs Temperature: 99.5 F Blood Pressure: 83/43 Pulse: 85 Respirations: 16 Pulse Ox (%): 94 - Studies Laboratory Data (last 24 hrs) 04/28/21 16:08: PT 11.9, INR 1.03, APTT 29.2 04/28/21 16:08: WBC 7.50, Hgb 11.5 L, Hct 34.7 L, Plt Count 283 04/28/21 16:08: Sodium 140, Potassium 4.1, BUN 10, Creatinine 0.81, Glucose 116 H, Total Bilirubin 0.2, AST 16, ALT 13, Alkaline Phosphatase 53, Lipase 45 L Assessment & Plan Discharge Plan: [facility] Plan to discharge in: 72 Hours Physician Review Additional Text: Physical exam Patient alert, cooperative. Heart: Regular rate rhythm Lungs: Clear to auscultation Abdomen: Soft, nontender nondistended Extremities shows good range of motion to upper lower extremities. Some contractures to the lower extremity. Some muscle wasting noted throughout. 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 Will give another bolus of IV fluids now. Will monitor closely. Prior cultures positive for ESBL. Suspect ESBL at this time. Continue IV meropenem. Will maintain and monitor blood pressure. Electrolyte protocol in place. DVT prophylaxis in place. Home medications reviewed and restarted. Anticipate likely ESBL therefore will order PICC line. Patient will likely require IV antibiotic therapy at discharge. Anticipate improvement over the next 72 hr. Seizure disorder: Continue Depakote and Keppra. History of CVA with contractures lower extremities: Continue DVT prophylaxis, Lipitor. Will monitor closely. Schizophrenia with mental retardation: Continue baclofen, Risperdal. Will monitor closely. Code status: Patient is full code DVT prophylaxis: Lovenox Advanced care planning-30 min: Patient comes from a assisted. Patient will likely return to the assisted with IV antibiotic therapy if positive for ESBL. Will reach out to family. Time Spent Managing Pts Care (In Minutes): 55
[2021-04-29] MEDS: ACETAMINOPHEN 500 MG TAB PO PRN ×2 (14:34→21:07)
[2021-04-29] MEDS: ATORVASTATIN 20 MG TAB PO SCH (21:08)
[2021-04-29] MEDS: MELATONIN 5 MG TABLET PO SCH (21:08)
[2021-04-30] MEDS: Meropenem 1,000 MG in NA CHLORIDE 0.9% 100 ML IV SCH ×3 (00:18→17:55)
[2021-04-30] MEDS: NACHLORIDE 0.45% 1,000 ML IV SCH ×3 (02:44→12:44)
[2021-04-30 06:31] LABS: Absolute Lymphocytes (CBC) 2.3 K/uL (0.7-4.9); Basophils % 0.6 % (0-1.3); Hematocrit 31.4 % (36.0-45.0); Lymphocytes % 35.4 % (15.3-44.8); MPV 8.6 fL (7.6-11.3); RBC Red Blood Cell Count 3.21 M/uL (3.86-4.86)
[2021-04-30 06:49] LABS: ALT/SGPT 14 U/L (12-78); AST/SGOT 21 U/L (15-37); Albumin 2.3 g/dL (3.4-5.0); Alkaline Phosphatase 47 U/L (45-117); BUN Blood Urea Nitrogen 3 mg/dL (7-18); Bicarbonate 27 mmol/L (21-32); Bilirubin Total 0.4 mg/dL (0.2-1.0); Glucose Level 88 mg/dL (74-106); Magnesium 1.6 mg/dL (1.8-2.4); Protein, Total 5.5 g/dL (6.4-8.2); Sodium Level 138 mmol/L (136-145)
[2021-04-30 06:57] LABS: Potassium 2.9 mmol/L (3.5-5.1)
[2021-04-30] MEDS ORDERED: MAGNESIUM SULFATE 1 gm IVPB 1 GM/100 ML BAG IV ONE (08:00)
[2021-04-30] MEDS: ENOXAPARIN 40 MG/0.4 ML SQ SCH (09:00)
[2021-04-30] MEDS: POLYVINYL ALCOHOL 1.4% 15 ML EACH EYE SCH ×4 (09:00→20:28)
[2021-04-30] MEDS: LORATADINE 10 MG TAB PO SCH (09:00)
[2021-04-30] MEDS: LACTULOSE 20 GM/30 ML UCUP PO SCH (09:42)
[2021-04-30] MEDS: BACLOFEN 10 MG TAB PO SCH ×3 (09:42→20:28)
[2021-04-30] MEDS: BUSPIRONE HCL 5 MG TABLET PO SCH ×2 (09:42→20:27)
[2021-04-30] MEDS: MULTIVITAMINS 5 ML ORAL SYR PO SCH (09:42)
[2021-04-30] MEDS: levETIRAcetam 500 MG TAB PO SCH ×2 (09:42→20:27)
[2021-04-30] MEDS: VITAMIN D 1000 UNIT TAB PO SCH (09:42)
[2021-04-30] MEDS: RISPERIDONE 1 MG TABLET PO SCH ×2 (09:43→20:27)
[2021-04-30] MEDS: DOCUSATE NA 100 MG CAP PO SCH ×2 (09:43→20:27)
[2021-04-30] MEDS: POLYETHYL GLY 3350 17 GM/DOSE PO SCH (09:44)
[2021-04-30] MEDS: KCL 20 MEQ/100 mL IVPB 20 MEQ/100 ML BAG IV SCH ×3 (10:37→13:25)
[2021-04-30] MEDS: DIVALPROEX ER 250 MG TAB PO SCH ×2 (12:23→20:27)
[2021-04-30] MEDS ORDERED: NACHLORIDE 0.45% 1,000 ML IV SCH (14:33)
--- NOTE | 2021-04-30 14:33 | P.PN ---
Subjective Date of Service: 04/30/21 Primary Care Provider: long-term doctor Chief Complaint: UTI, severe sepsis, seizure Subjective: Improving, Doing well Physical Examination - Vital Signs Temperature: 97 F Blood Pressure: 115/65 Pulse: 85 Respirations: 17 Pulse Ox (%): 96 - Studies Microbiology Data (last 24 hrs): 04/28/21 17:26 Clean Catch Urine [place] Count - Final >100,000 CFU/ML. 04/28/21 17:26 Clean Catch Urine - Final Escherichia Coli Esbl Assessment & Plan Discharge Plan: Snf Plan to discharge in: 24 Hours Physician Review Additional Text: Physical exam Patient alert, cooperative. Heart: Regular rate rhythm Lungs: Clear to auscultation Abdomen: Soft, nontender nondistended Extremities shows good range of motion to upper lower extremities. Some contractures to the lower extremity. Some muscle wasting noted throughout. 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 Urine culture positive for ESBL. Patient will re quire IV meropenem 1000 mg IV 3 times a day for a total of [facility] the [facility]. Will have social insurance analyst arrange as the patient can likely be discharge tomorrow on IV antibiotic therapy. Continue DVT prophylaxis. PICC line in place. Anticipate discharge likely tomorrow if IV antibiotic therapy can be arranged. I will turn the service over to the hospitalist team tomorrow. I will go plan of care with him. Seizure disorder: Continue Depakote and Keppra. History of CVA with contractures lower extremities: Continue DVT prophylaxis, Lipitor. Will monitor closely. Schizophrenia with mental retardation: Continue baclofen, Risperdal. Will monitor closely. Code status: Patient is full code DVT prophylaxis: Lovenox Advanced care planning-30 min: Patient comes from a prison. Return back to prison with IV antibiotic therapy. Time Spent Managing Pts Care (In Minutes): 55
[2021-04-30] MEDS: ACETAMINOPHEN 500 MG TAB PO PRN (18:29)
[2021-04-30] MEDS: MELATONIN 5 MG TABLET PO SCH (20:28)
[2021-04-30] MEDS: TRAMADOL HCL 50 MG TAB PO PRN (20:28)
[2021-04-30] MEDS: ATORVASTATIN 20 MG TAB PO SCH (20:28)
[2021-04-30] MEDS ORDERED: POTASSIUM CL SA 10 MEQ TAB PO ONE (21:00)
[2021-04-30] MEDS ORDERED: NA CHLORIDE 0.9% 500 ML IV ONE (21:51)
[2021-04-30 22:09] VITALS: O2SAT 95
[2021-04-30] MEDS ORDERED: NA CHLORIDE 0.9% 500 ML ONE (22:11)
[2021-05-01] MEDS: Meropenem 1,000 MG in NA CHLORIDE 0.9% 100 ML IV SCH ×2 (00:01→09:04)
[2021-05-01] MEDS: ACETAMINOPHEN 500 MG TAB PO PRN ×2 (02:26→10:13)
[2021-05-01] MEDS: TRAMADOL HCL 50 MG TAB PO PRN (04:25)
[2021-05-01 05:13] LABS: Absolute Lymphocytes (CBC) 3.1 K/uL (0.7-4.9); Basophils % 0.6 % (0-1.3); Hematocrit 31.9 % (36.0-45.0); Lymphocytes % 33.9 % (15.3-44.8); MPV 8.2 fL (7.6-11.3); RBC Red Blood Cell Count 3.28 M/uL (3.86-4.86)
[2021-05-01 05:29] LABS: ALT/SGPT 19 U/L (12-78); AST/SGOT 27 U/L (15-37); Albumin 2.5 g/dL (3.4-5.0); Alkaline Phosphatase 50 U/L (45-117); BUN Blood Urea Nitrogen 3 mg/dL (7-18); Bicarbonate 30 mmol/L (21-32); Bilirubin Total 0.4 mg/dL (0.2-1.0); Glucose Level 95 mg/dL (74-106); Magnesium 2.1 mg/dL (1.8-2.4); Potassium 3.9 mmol/L (3.5-5.1); Protein, Total 5.6 g/dL (6.4-8.2); Sodium Level 142 mmol/L (136-145)
[2021-05-01] MEDS: ENOXAPARIN 40 MG/0.4 ML SQ SCH (09:00)
[2021-05-01] MEDS: BACLOFEN 10 MG TAB PO SCH (09:00)
[2021-05-01] MEDS: LORATADINE 10 MG TAB PO SCH (09:00)
[2021-05-01] MEDS: POLYETHYL GLY 3350 17 GM/DOSE PO SCH (09:00)
[2021-05-01] MEDS: RISPERIDONE 1 MG TABLET PO SCH (09:00)
[2021-05-01] MEDS: DOCUSATE NA 100 MG CAP PO SCH (09:00)
[2021-05-01] MEDS ORDERED: POTASSIUM CL SA 10 MEQ TAB PO ONE (09:00)
[2021-05-01] MEDS: levETIRAcetam 500 MG TAB PO SCH (09:00)
[2021-05-01] MEDS: LACTULOSE 20 GM/30 ML UCUP PO SCH (09:01)
[2021-05-01] MEDS: BUSPIRONE HCL 5 MG TABLET PO SCH (09:01)
[2021-05-01] MEDS: VITAMIN D 1000 UNIT TAB PO SCH (09:01)
[2021-05-01] MEDS: MULTIVITAMINS 5 ML ORAL SYR PO SCH (09:04)
[2021-05-01] MEDS: POLYVINYL ALCOHOL 1.4% 15 ML EACH EYE SCH (09:04)
--- NOTE | 2021-05-01 10:15 | RAD REPORT ---
EXAM DESCRIPTION: RAD - Chest Single View - 04/30/2021 12:03 am CLINICAL HISTORY: PICC placement Right side COMPARISON: 08/04/2020. Report from 04/28/2021 FINDINGS: Single frontal view of the chest. Tubes and lines: Right arm PICC with tip in the SVC. Leads overlie the chest. Cardiomediastinal silhouette: Atherosclerotic calcification of thoracic aorta. Heart is not enlarged. Lungs: No consolidation, pneumothorax, or pleural effusion. Bones: Degenerative change of the spine and shoulders. Upper abdomen: No acute abnormality. IMPRESSION: 1. Right arm PICC with tip in the SVC. Electronically signed by: Juliocesar Nayak 04/30/2021 12:22 AM CDT Due to temporary technical issues with the PACS/Fluency reporting system, reports are being signed by the in house radiologists without review as a courtesy to insure prompt reporting. The interpreting radiologist is fully responsible for the content of the report.
[2021-05-01] MEDS: DIVALPROEX ER 250 MG TAB PO SCH (12:02)
[2021-05-01 12:33] VITALS: BP 113/64; TEMP 98
--- NOTE | 2021-05-03 12:09 | EKG ---
Test Date: 2021-04-28 Test Time: 16:03:14 [employer] Guard Supervisor: BRIAN MEASUREMENT RESULTS: Intervals: Rate: 108 NH: 150 QRSD: 72 QT: 328 QTc: 439 [place]: P: 61 NH: 150 QRS: 75 T: 19 INTERPRETIVE STATEMENTS: Sinus tachycardia Otherwise normal ECG Compared to ECG 03/24/2021 11:33:47 Sinus rhythm no longer present Electronically Signed On 05-03-21 11:55:38 CDT by Hua Marion
--- NOTE | 2021-05-08 03:38 | P.DS ---
Discharge Date: 05/01/21 Primary Care Provider: half-way doctor Disposition: TRANSFER TO SNF - MEDICAL Discharge Condition: GOOD Reason for Admission: UTI, severe sepsis, seizure Brief History of Present Illness: Patient is a 56-year-old female history of CVA, epilepsy, mental retardation, schizophrenia, history of urinary tract infections presents emergency department for altered mental status. Patient stays at [facility], EMS was called out for cardiac arrest, upon EMS arrival patient was awake, speaking with them, no CPR was performed, patient then proceeded to have a seizure and was treated with Versed with resolution of seizure. Patient was evaluated in the emergency department, labs significant for white blood cell count 7.5 hemoglobin 11.5 hematocrit 34.7 chloride 108 to 216 lactic acid 10.7 pro calcitonin 0.06 urinalysis nitrite negative leukocyte positive greater than 50 bacteria on microscopic analysis. Patient blood pressure soft at this time, receive sepsis fluid bolus in the emergency department, blood pressure has improved mildly, ED provider wishes to admit for UTI, severe sepsis, seizure. Hospital Course: Patient was given IV antibiotic therapy. Patient will be sent to intermediate on Merrem IV. Patient clinically is well. Patient is stable to transfer back to intermediate. Vital Signs/Physical Exam: Temp Pulse Resp BP Pulse Ox 98 F 105 H 17 113/64 96 05/01/21 12:00 05/01/21 12:00 05/01/21 12:00 05/01/21 12:00 05/01/21 12:00 General: Alert, In no apparent distress Respiratory: Clear to auscultation bilaterally Cardiovascular: Regular rate/rhythm, Normal S1 S2 Laboratory Data at Discharge: WBC 9.00 K/uL (4.3-10.9) D 05/01/21 04:50 Hgb 11.0 g/dL (12.0-15.0) L 05/01/21 04:50 Hct 31.9 % (36.0-45.0) L 05/01/21 04:50 Plt Count 269 K/uL (152-406) 05/01/21 04:50 PT 11.9 SECONDS (9.5-12.5) 04/28/21 16:08 INR 1.03 04/28/21 16:08 APTT 29.2 SECONDS (24.3-36.9) 04/28/21 16:08 Sodium 142 mmol/L (136-145) 05/01/21 04:50 Potassium 3.9 mmol/L (3.5-5.1) 05/01/21 04:50 BUN 3 mg/dL (7-18) L 05/01/21 04:50 Creatinine 0.27 mg/dL (0.55-1.3) L 05/01/21 04:50 Glucose 95 mg/dL (74-106) 05/01/21 04:50 Magnesium 2.1 mg/dL (1.8-2.4) D 05/01/21 04:50 Total Bilirubin 0.4 mg/dL (0.2-1.0) 05/01/21 04:50 AST 27 U/L (15-37) 05/01/21 04:50 ALT 19 U/L (12-78) 05/01/21 04:50 Alkaline Phosphatase 50 U/L (45-117) 05/01/21 04:50 Lipase 45 U/L (73-393) L 04/28/21 16:08 Home Medications: Acetaminophen [Tylenol Extra Strength] 1 tab PO DAILY 06/14/20 Atorvastatin Calcium [Lipitor*] 40 mg PO BEDTIME 06/14/20 Buspirone HCl [Buspar] 20 mg PO BID 06/14/20 Cholecalciferol (Vitamin D3) [Vitamin D3] 1,000 unit PO DAILY 06/14/20 Dextran 70/Hypromellose [Artificial Tears Drops] 2 drops OP QID 06/14/20 Divalproex Sodium [Depakote ER] 1,000 mg PO BID 06/14/20 Docusate Sodium 100 mg PO BID 06/14/20 Loratadine [Claritin*] 10 mg PO DAILY 06/14/20 Melatonin 5 mg PO BEDTIME 06/14/20 Risperidone [Risperdal] 2 mg PO BID 06/14/20 levETIRAcetam [Keppra*] 1,000 mg PO Q12H 06/14/20 Baclofen [Lioresal*] 5 mg PO TID 04/29/21 Diphenhydramine [Benadryl*] 1 tab PO Q8HP PRN 04/29/21 Lactulose 1 packet PO DAILY 04/29/21 Levofloxacin [Levaquin] 1 tab PO DAILY 04/29/21 Multivit-Min/Ferrous Fumarate [Multivitamin Liquid] 10 ml PO DAILY 04/29/21 Polyethylene Glycol 3350 [Miralax] 17 gm PO DAILY 04/29/21 Sulfamethoxazole/Trimethoprim [Bactrim Ds Tablet] 1 tab PO BID 04/29/21 Tramadol HCl [Ultram] 50 mg PO Q6HP PRN 04/29/21 Physician Discharge Instructions: OK TO DC IV AND DC to intermediate FOLLOW-UP WITH PRIMARY CARE PROVIDER IN 1-2 WEEKS FOLLOW-UP WITH CARDIOLOGY IN 1-2 WEEKS RETURN TO THE ER IF symptoms worsen CALL or TEXT DR. NATH AT [phone] IF ANY QUESTIONS REGARDING HOSPITAL STAY. PLEASE CALL THE FLOOR AT [phone] IF ANY MEDICATION OR NURSING QUESTIONS. Diet: AHA (Mechanical soft) Activity: Fall precautions Followup: NONE,NONE [Primary Care Provider] - Time spent managing pt's care (in minutes): 35
== END 2021-05-01 13:49 | DRG 872 ==
LOC: ER 15:42 → ERHOLD 18:33 → 2ND 19:43
PROVIDERS: ADMIT Family Medicine; ATTEND Hospitalist
PROC: 02HV33Z Insertion of Infusion Device into Superior Vena Cava, Percutaneous Approach (ICD-10-PCS; principal; 2021-04-29)
DX: A41.51 Sepsis due to Escherichia coli [E. coli] (principal); N39.0 Urinary tract infection, site not specified; Z16.12 Extended spectrum beta lactamase (ESBL) resistance; I10 Essential (primary) hypertension; F20.9 Schizophrenia, unspecified; F79 Unspecified intellectual disabilities; I25.10 Atherosclerotic heart disease of native coronary artery without angina pectoris; G40.909 Epilepsy, unspecified, not intractable, without status epilepticus; R65.20 Severe sepsis without septic shock; Z88.8 Allergy status to other drugs, medicaments and biological substances; Z88.0 Allergy status to penicillin; Z86.73 Personal history of transient ischemic attack (TIA), and cerebral infarction without residual deficits; Z79.02 Long term (current) use of antithrombotics/antiplatelets; Z79.899 Other long term (current) drug therapy; Z20.822 Contact with and (suspected) exposure to COVID-19
CPT/HCPCS: 36415; 36569; 51702; 70450; 71045; 80048; 80053; 80076; 80164; 81003; 81015; 82550; 82947; 83605; 83690; 83735; 83880; 84132; 84145; 84439; 84443; 84484; 85025; 85610; 85730; 87040; 87070; 87077; 87086; 87088; 87186; 87205; 93005; 99285; J0692; J1650; J1953; J2185; J3370; J3475; J3480; J7030; J7040; U0003